=== PATIENT | female | born 1965 | race Caucasian/White ===

== ENCOUNTER → 2016-06-14 | Outpatient (CLI) | payer OTHER ==
[2016-06-14 10:48] LABS: ANION GAP 11 (5-19); BLOOD UREA NITROGEN 20 mg/dL (7-20); CALCIUM 9.8 mg/dL (8.4-10.2); CARBON DIOXIDE 27 mmol/L (22-30); CHLORIDE 104 mmol/L (98-107); CHOLESTEROL 213.26 mg/dL (0-200); CREATININE RESULT 0.93 mg/dL (0.52-1.25); Direct HDL 36 mg/dL (>40); GLUCOSE 99 mg/dL (75-110); POTASSIUM 4.9 mmol/L (3.6-5.0); TRIGLYCERIDES 312 mg/dL (<150)
[2016-06-14 10:59] LABS: DIRECT LDL 136 mg/dL (<100)
[2016-06-14 11:05] LABS: VLDL CHOLESTEROL 62.4 mg/dL (10-31)
== END ==
LOC: CCC 09:54
DX: E78.4 Other hyperlipidemia (principal)
CPT/HCPCS: 36415; 80048; 80061

== ENCOUNTER 2016-07-04 19:19 | Emergency (ER) | payer SELFPAY ==
[2016-07-04 19:39] VITALS: BP 158/80
[2016-07-04] MEDS ORDERED: ASPIRIN 81 MG TABLET, CHEWABLE PO ONE (19:43)
--- NOTE | 2016-07-04 19:43 | ER Document Report ---
ED Medical Screen (RME) - General Stated Complaint: CHEST PAIN Notes: chest pain left of strenum pressure, intermittenly and has become worse that its constant fatigue, increased pain with deep breath on plavix, lipitor HLD, HTN, tobacco user not diabetic Jul 07 2015: [place] to cath to stent x1 and left carotid endarterctomy I have greeted and performed a rapid initial assessment of this patient. A comprehensive ED assessment and evaluation of the patient, analysis of test results and completion of the medical decision making process will be conducted by additional ED providers. TRAVEL OUTSIDE OF THE [place] IN LAST 30 DAYS: No - Related Data Allergies/Adverse Reactions: tetracycline [Tetracycline] Allergy (Verified 10/02/15 02:23) Past Medical History - Past Medical History Cardiac Medical History: Reports: Hx Coronary Artery Disease, Hx Heart Attack, Hx Hypertension Psychiatric Medical History: Denies: Hx Depression Past Surgical History: Reports: Hx Cardiac Catheterization, Hx Section , Hx Coronary Stent - x1; June 2015, Hx Hysterectomy - Immunizations Immunizations up to date: No Hx Diphtheria, Pertussis, Tetanus Vaccination: Yes Physical Exam - Vital signs Vitals: Temp Pulse Resp BP Pulse Ox 98.3 F 105 H 20 158/80 H 97 07/04/16 19:23 07/04/16 19:23 07/04/16 19:23 07/04/16 19:23 07/04/16 19:23 Course - Vital Signs Vital signs: Temp Pulse Resp BP Pulse Ox 98.3 F 105 H 20 158/80 H 97 07/04/16 19:23 07/04/16 19:23 07/04/16 19:23 07/04/16 19:23 07/04/16 19:23
[2016-07-04 20:09] LABS: ABSOLUTE BASOPHILS # (AUTO) 0.1 10^3/uL (0.0-0.2); ABSOLUTE EOSINOPHILS # (AUTO) 0.5 10^3/uL (0.0-0.6); ABSOLUTE LYMPHOCYTES (AUTO) 3.1 10^3/uL (0.5-4.7); ABSOLUTE MONOCYTES (AUTO) 0.8 10^3/uL (0.1-1.4); ABSOLUTE NEUT (AUTO) 6.1 10^3/uL (1.7-8.2); BASOPHILS % (AUTO) 0.5 % (0-2); EOSINOPHILS % (AUTO) 4.6 % (0-6); HEMATOCRIT 39.2 % (36.0-47.0); HEMOGLOBIN 13.1 g/dL (12.0-15.5); HGB HCT DIFFERENCE 0.1; LYMPHOCYTES % (AUTO) 29.4 % (13-45); MEAN CORPUSCULAR HGB CONC 33.3 g/dL (32.0-36.0); MEAN CORPUSCULAR VOLUME 90 fl (80-97); MONOCYTES % (AUTO) 7.9 % (3-13); RED BLOOD COUNT 4.36 10^6/uL (3.72-5.28); RED CELL DISTRIBUTION WIDTH 14.9 % (11.5-14.0); SEGMENTED NEUTROPHILS % (AUTO) 57.6 % (42-78); WHITE BLOOD COUNT 10.5 10^3/uL (4.0-10.5)
[2016-07-04 20:16] LABS: ALANINE AMINOTRANSFERASE 35 U/L (9-52); ALBUMIN 4.2 g/dL (3.5-5.0); ALKALINE PHOSPHATASE 112 U/L (38-126); ANION GAP 10 (5-19); ASPARTATE AMINO TRANSFERASE 19 U/L (14-36); BILIRUBIN,TOTAL 0.4 mg/dL (0.2-1.3); BLOOD UREA NITROGEN 23 mg/dL (7-20); CALCIUM 9.4 mg/dL (8.4-10.2); CARBON DIOXIDE 29 mmol/L (22-30); CHLORIDE 102 mmol/L (98-107); CREATINE KINASE 42 U/L (30-135); CREATININE RESULT 1.12 mg/dL (0.52-1.25); GLUCOSE 99 mg/dL (75-110); POTASSIUM 4.5 mmol/L (3.6-5.0); SODIUM 140.8 mmol/L (137-145); TOTAL PROTEIN 7.6 g/dL (6.3-8.2)
[2016-07-04 20:37] LABS: CREATINE KINASE MB 0.57 ng/mL (<4.55)
[2016-07-04 20:39] LABS: TROPONIN I < 0.012 ng/mL
--- NOTE | 2016-07-05 12:41 | EKG REPORT ---
SEVERITY:- ABNORMAL ECG - SINUS RHYTHM LEFT ATRIAL ABNORMALITY : Confirmed by: Noble Haines 05-Jul-2016 12:40:34
== END 2016-07-04 21:22 | disposition left against medical advice (07) ==
LOC: ER 19:19
DX: R07.89 Other chest pain (principal); R53.83 Other fatigue; I25.10 Atherosclerotic heart disease of native coronary artery without angina pectoris; I25.2 Old myocardial infarction; I10 Essential (primary) hypertension; Z88.1 Allergy status to other antibiotic agents; Z98.61 Coronary angioplasty status; Z53.20 Procedure and treatment not carried out because of patient's decision for unspecified reasons
CPT/HCPCS: 36415; 71010; 80053; 82550; 82553; 84484; 85025; 93010; 99281

== ENCOUNTER → 2016-08-01 | Outpatient (CLI) | payer OTHER ==
[~2016-08-01] MED LIST: AMINOPHYLLINE INJ/PF 250 MG/10 ML SDV IV ONE; HYDROCHLOROTHIAZIDE 12.5 MG CAPSULE PO ONE; LISINOPRIL 10 MG TABLET PO ONE; REGADENOSON INJ 0.4 MG/5 ML DISP.SYRIN IV ONE
--- NOTE | 2016-08-02 09:54 | DRAGON STRESS TEST REPORT ---
INTRAVENOUS LEXISCAN CARDIOLITE STRESS TEST USING SINGLE PHOTON EMMISION COMPUTERIZED TOMOGRAPHIC. DATE OF PROCEDURE: August 01, 2016 INDICATION : Chest pain CARDIAC RISK FACTORS: Hypertension, dyslipidemia, tobacco abuse, family history of cardiac disease RESTING EKG: Sinus rhythm, minor nonspecific ST segment changes STRESS EKG: No significant changes noted with LexiScan bolus REASON FOR TERMINATION: Protocol. PROCEDURE REPORT: Baseline heart rate 82 beats per minute with blood pressure of 173/68. Patient had no significant complaints. Heart rate at 2 minutes post bolus 100 with a blood pressure of 183/60. 3 minutes post bolus heart rate 99 with blood pressure of 174/70. No significant EKG changes were noted. Patient had no significant complaints during the procedure or postprocedure. CONCLUSIONS: Normal EKG and hemodynamic response to IV LexiScan. NUCLEAR DATA: At rest the patient was given 11.68 millicuries of technetium 99 sestamibi injected intravenously. As per protocol rest gated SPECT images were obtained. Subsequently the patient was given intravenous LexiScan at a dose of 0.4 mg in 5 mL intravenously, followed by flush with normal saline. Subsequently the stress dose of 36.5 millicuries of technetium 99 sestamibi was injected intravenously. As per protocol stress gated images were obtained. NUCLEAR INTERPRETATION: Both raw and processed data were used for interpretation. Visual, qualitative, computer-generated quantitative data was used. There was good myocardial uptake of technetium compound. Motion artifact and soft tissue attenuations were noted. Increased visceral uptake was noted. No definitive areas of transient perfusion defect noted. No definitive areas of fixed perfusion defect or scars noted. EKG gated imaging showed LV EF at 60 %, rest and stress gated EF similar visually. T. I D. ratio was 1.19. Lung heart ratio noted to be within normal limits 0.41, seems borderline increased. No significant extracardiac and abnormal radiotracer activities were noted. RV free wall uptake was noted to be WNL. IMPRESSION: Also refer to comments under nuclear interpretation. Also test results needs to be interpreted in the context of pretest probability. 1. There is no definitive scintigraphic evidence of LexiScan induced myocardial ischemia. 2. There is no definitive scintigraphic evidence of myocardial infarction/scar. 3. EKG gated imaging shows left ejection fraction of approximately 60 %. 4. Clinical correlation requested as occasionally single vessel disease or balanced ischemia could be missed. In approximately 10% of the cases Lexiscan may not cause adequate vasodilatory stress. RECOMMENDATIONS: Aggressive risk factor modification, medical therapy. Clinical correlation with echocardiogram derived ejection fraction. Inability to exercise by itself can lead to increased cardiovascular event risks. Consider cardiology consultation and or follow-up if clinically indicated. I AM AVAILABLE FOR CARDIOLOGY CONSULTATION AND FOLLOWUP IF REQUESTED BY PMD Noble Haines M.D., [address] Deputy staging technician, Board certified in cardiovascular diseases, Nuclear cardiology, Echocardiography Cardiac CT and cardiac MRI Ph. [phone] [facility]
== END ==
LOC: RAD 08:16
DX: R07.9 Chest pain, unspecified (principal); I25.10 Atherosclerotic heart disease of native coronary artery without angina pectoris; I25.2 Old myocardial infarction
CPT/HCPCS: 93017; 78452; A9500; J2785; J0280; Q9969

== ENCOUNTER → 2016-08-05 | Outpatient (CLI) | payer OTHER ==
[2016-08-05 10:38] LABS: Direct HDL 36 mg/dL (>40); TRIGLYCERIDES 265 mg/dL (<150)
[2016-08-05 10:49] LABS: DIRECT LDL 116 mg/dL (<100)
== END ==
LOC: CCC 08:53
DX: E78.4 Other hyperlipidemia (principal)
CPT/HCPCS: 36415; 80061

== ENCOUNTER 2016-11-15 01:52 | Observation (INO) | payer OTHER ==
[2016-11-15] MEDS ORDERED: ASPIRIN 81 MG TABLET, CHEWABLE PO ONE (04:41)
--- NOTE | 2016-11-15 04:48 | ER Document Report ---
ED Medical Screen (RME) - General Chief Complaint: Chest Pain Stated Complaint: CHEST DISCOMFORT Time Seen by Provider: 11/15/16 04:46 Notes: 51-year-old female, reports chest pain that started tonight while she was lying down, over the left side of her chest, worse with movement, states she felt like her heart was racing and she also checked her blood pressure and found out that was high. Patient smokes, had an SD last year with stenting in , has hypertension she denies shortness of breath, injury, fever, cough. TRAVEL OUTSIDE OF THE [place] IN LAST 30 DAYS: No - Related Data Allergies/Adverse Reactions: tetracycline [Tetracycline] Allergy (Verified 10/02/15 02:23) Past Medical History - Past Medical History Cardiac Medical History: Reports: Hx Coronary Artery Disease, Hx Heart Attack, Hx Hypertension Renal/ Medical History: Denies: Hx Peritoneal Dialysis Psychiatric Medical History: Denies: Hx Depression Past Surgical History: Reports: Hx Cardiac Catheterization, Hx Section , Hx Coronary Stent - x1; June 2015, Hx Hysterectomy - Immunizations Immunizations up to date: No Hx Diphtheria, Pertussis, Tetanus Vaccination: Yes Physical Exam - Vital signs Vitals: Temp Pulse Resp BP Pulse Ox 98.0 F 102 H 20 205/71 H 98 11/15/16 01:57 11/15/16 01:57 11/15/16 01:57 11/15/16 01:57 11/15/16 01:57 - Respiratory Respiratory status: No respiratory distress Chest status: Tender - tender over general left anterior chest wall extending up pectoralis on the left side Breath sounds: Normal - Cardiovascular Rhythm: Regular. No: Tachycardia Heart sounds: Normal auscultation, S1 appreciated, S2 appreciated Murmur: No Course - Vital Signs Vital signs: Temp Pulse Resp BP Pulse Ox 98.0 F 80 18 160/68 H 97 11/15/16 01:57 11/15/16 04:13 11/15/16 04:13 11/15/16 04:13 11/15/16 04:13
--- NOTE | 2016-11-15 05:30 | RADIOLOGY REPORT (SQ) ---
EXAM DESCRIPTION: CHEST SINGLE VIEW COMPLETED DATE/TIME: 11/15/2016 4:59 am REASON FOR STUDY: chest pain COMPARISON: 07/04/2016 EXAM PARAMETERS: NUMBER OF VIEWS: One view. TECHNIQUE: Single frontal radiographic view of the chest acquired. RADIATION DOSE: NA LIMITATIONS: None. FINDINGS: LUNGS AND PLEURA: No opacities, masses or pneumothorax. No pleural effusion. Prominent in terstitium, chronic. MEDIASTINUM AND HILAR STRUCTURES: No masses. Contour normal. HEART AND VASCULAR STRUCTURES: Heart normal in size. Normal vasculature. BONES: No acute findings. Mild scoliotic curvature. HARDWARE: None in the chest. OTHER: No other significant finding. IMPRESSION: NO ACUTE RADIOGRAPHIC FINDING IN THE CHEST. TECHNICAL DOCUMENTATION: JOB ID: [id number]
[2016-11-15 06:03] LABS: ABSOLUTE BASOPHILS # (AUTO) 0.1 10^3/uL (0.0-0.2); ABSOLUTE EOSINOPHILS # (AUTO) 0.5 10^3/uL (0.0-0.6); ABSOLUTE LYMPHOCYTES (AUTO) 4.2 10^3/uL (0.5-4.7); ABSOLUTE MONOCYTES (AUTO) 1.2 10^3/uL (0.1-1.4); ABSOLUTE NEUT (AUTO) 6.7 10^3/uL (1.7-8.2); BASOPHILS % (AUTO) 0.6 % (0-2); EOSINOPHILS % (AUTO) 3.9 % (0-6); HEMOGLOBIN 12.4 g/dL (12.0-15.5); HGB HCT DIFFERENCE 0.2; LYMPHOCYTES % (AUTO) 32.9 % (13-45); MEAN CORPUSCULAR HGB CONC 33.5 g/dL (32.0-36.0); MEAN CORPUSCULAR VOLUME 93 fl (80-97); MONOCYTES % (AUTO) 9.7 % (3-13); RED BLOOD COUNT 3.99 10^6/uL (3.72-5.28); RED CELL DISTRIBUTION WIDTH 13.2 % (11.5-14.0); SEGMENTED NEUTROPHILS % (AUTO) 52.9 % (42-78); WHITE BLOOD COUNT 12.7 10^3/uL (4.0-10.5)
[2016-11-15 06:23] LABS: ALANINE AMINOTRANSFERASE 44 U/L (9-52); ALBUMIN 4.2 g/dL (3.5-5.0); ALKALINE PHOSPHATASE 138 U/L (38-126); ANION GAP 11 (5-19); ASPARTATE AMINO TRANSFERASE 29 U/L (14-36); BILIRUBIN,DIRECT 0.3 mg/dL (0.0-0.4); BILIRUBIN,TOTAL 0.3 mg/dL (0.2-1.3); BLOOD UREA NITROGEN 19 mg/dL (7-20); CALCIUM 9.1 mg/dL (8.4-10.2); CARBON DIOXIDE 26 mmol/L (22-30); CHLORIDE 103 mmol/L (98-107); CREATINE KINASE 37 U/L (30-135); GLUCOSE 114 mg/dL (75-110); MAGNESIUM 2.1 mg/dL (1.6-2.3); POTASSIUM 4.1 mmol/L (3.6-5.0); SODIUM 140.1 mmol/L (137-145); TOTAL PROTEIN 7.8 g/dL (6.3-8.2)
[2016-11-15 06:35] LABS: CREATINE KINASE MB 0.58 ng/mL (<4.55)
[2016-11-15 06:36] LABS: TROPONIN I < 0.012 ng/mL
--- NOTE | 2016-11-15 07:23 | ER Document Report ---
ED General - General Chief Complaint: Chest Pain > 30 Stated Complaint: CHEST DISCOMFORT Time Seen by Provider: 11/15/16 04:46 Mode of Arrival: Ambulatory Information source: Patient Notes: 51-year-old female presents with history of MT with stents last year with complaints of chest pressure sensation. Patient notes the pain started earlier today was associated with heart racing. Denies a history of palpitations TRAVEL OUTSIDE OF THE [place] IN LAST 30 DAYS: No - HPI Onset: Just prior to arrival Onset/Duration: Sudden Quality of pain: Pressure Severity: Mild Pain Level: 1 Associated symptoms: Chest pain Exacerbated by: Denies Relieved by: Denies Similar symptoms previously: Yes Recently seen / treated by doctor: Yes - Related Data Allergies/Adverse Reactions: tetracycline [Tetracycline] Allergy (Verified 10/02/15 02:23) Past Medical History - Social History Smoking Status: Never Smoker Cigarette use (# per day): No Chew tobacco use (# tins/day): No Smoking Education Provided: No Family History: CAD - both parents Patient has suicidal ideation: No Patient has homicidal ideation: No - Past Medical History Cardiac Medical History: Reports: Hx Coronary Artery Disease, Hx Heart Attack, Hx Hypertension Renal/ Medical History: Denies: Hx Peritoneal Dialysis Psychiatric Medical History: Denies: Hx Depression Past Surgical History: Reports: Hx Cardiac Catheterization, Hx Section , Hx Coronary Stent - x1; June 2015, Hx Hysterectomy - Immunizations Immunizations up to date: No Hx Diphtheria, Pertussis, Tetanus Vaccination: Yes Review of Systems - Review of Systems Notes: REVIEW OF SYSTEMS: CONSTITUTIONAL : Denies fever, chills, or sweats. Denies recent illness. EENT: Denies eye, ear, throat, or mouth pain or symptoms. Denies nasal or sinus congestion or discharge. Denies throat, tongue, or mouth swelling or difficulty swallowing. CARDIOVASCULAR: Admits to chest pain palpitations RESPIRATORY: Denies cough, cold, or chest congestion. Denies shortness of breath, difficulty breathing, or wheezing. GASTROINTESTINAL: Denies abdominal pain or distention. Denies nausea, vomiting , or diarrhea. Denies blood in vomitus, stools, or per rectum. Denies black, tarry stools. Denies constipation. GENITOURINARY: Denies difficulty urinating, painful urination, burning, frequency, blood in urine, or discharge. FEMALE GENITOURINARY: Denies vaginal bleeding, heavy or abnormal periods, irregular periods. Denies vaginal discharge or odor. MUSCULOSKELETAL: Denies back or neck pain or stiffness. Denies joint pain or swelling. SKIN: Denies rash, lesions or sores. HEMATOLOGIC : Denies easy bruising or bleeding. LYMPHATIC: Denies swollen, enlarged glands. NEUROLOGICAL: Denies confusion or altered mental status. Denies passing out or loss of consciousness. Denies dizziness or lightheadedness. Denies headache. Denies weakness or paralysis or loss of use of either side. Denies problems with gait or speech. Denies sensory loss, numbness, or tingling. Denies seizures. PSYCHIATRIC: Denies anxiety or stress. Denies depression, suicidal ideation, or homicidal ideation. ALL OTHER SYSTEMS REVIEWED AND NEGATIVE. PHYSICAL EXAMINATION: GENERAL: Well-appearing, well-nourished and in no acute distress. HEAD: Atraumatic, normocephalic. EYES: Pupils equal round and reactive to light, extraocular movements intact, conjunctiva are normal. ENT: Nares patent, oropharynx clear without exudates. Moist mucous membranes. NECK: Normal range of motion, supple without lymphadenopathy LUNGS: Breath sounds clear to auscultation bilaterally and equal. No wheezes rales or rhonchi. HEART: Regular rate and rhythm without murmurs pain is reproducible on palpation ABDOMEN: Soft, nontender, nondistended abdomen. No guarding, no rebound. No masses appreciated. Female : deferred Musculoskeletal: Normal range of motion, no pitting or edema. No cyanosis. NEUROLOGICAL: Cranial nerves grossly intact. Normal speech, normal gait. Normal sensory, motor exams PSYCH: Normal mood, normal affect. SKIN: Warm, Dry, normal turgor, no rashes or lesions noted. Dictation was performed using Press voice recognition software Physical Exam - Vital signs Vitals: Temp Pulse Resp BP Pulse Ox 98.0 F 102 H 20 205/71 H 98 11/15/16 01:57 11/15/16 01:57 11/15/16 01:57 11/15/16 01:57 11/15/16 01:57 Course - Re-evaluation Re-evalutation: 11/15/16 07:23 Patient does have a history of cardiac events however while in the room she feels her heart is racing he had a heart rate 67, her chest pain is exactly reproducible, second set of cardiac enzymes have been ordered and I have low suspicion for a cardiac event in this patient. 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 Therefore I will obvious the patient for a full cardiac workup - Vital Signs Vital signs: Temp Pulse Resp BP Pulse Ox 98.3 F 90 11 L 168/72 H 98 11/15/16 05:52 11/15/16 07:40 11/15/16 08:31 11/15/16 08:31 11/15/16 08:31 - Laboratory Result Diagrams: 11/15/16 05:48 11/15/16 05:48 Laboratory results interpreted by me: 11/15/16 11/15/16 05:48 05:48 WBC 12.7 H Est GFR (Non-Af Amer) 58 L Glucose 114 H Alkaline Phosphatase 138 H - Diagnostic Test Radiology reviewed: Image reviewed, Reports reviewed - EKG Interpretation by Me EKG shows normal: Sinus rhythm, [place], Intervals, QRS Complexes Discharge - Discharge Clinical Impression: ACS (acute coronary syndrome) Condition: Stable Disposition: HOME, SELF-CARE
--- NOTE | 2016-11-15 08:39 | EKG REPORT ---
SEVERITY:- BORDERLINE ECG - SINUS RHYTHM PROBABLE LEFT ATRIAL ABNORMALITY : Confirmed by: Noble Haines 15-Nov-2016 08:38:27
[2016-11-15] MEDS ORDERED: METOCLOPRAMIDE HCL ORAL SOLN 10 MG/10 ML UDCUP PO ONE (09:43)
[2016-11-15] MEDS ORDERED: LIDOCAINE 2% VISCOUS SOLN 20 ML UDCUP PO ONE (09:43)
[2016-11-15] MEDS ORDERED: MAG HYDROX/AL HYDROX/SIMETH SUSP 30 ML UDCUP PO ONE (09:43)
[2016-11-15] MEDS ORDERED: NITROGLYCERIN 0.4 MG/TAB 25 TAB/BOTTLE SL PRN (09:45)
[2016-11-15] MEDS ORDERED: ACETAMINOPHEN 325 MG TABLET PO PRN (13:44)
[2016-11-15] MEDS: HEPARIN SOD (PORCINE) 5,000 UNIT/ML 1 ML SYRINGE SUBCUT SCH ×2 (14:36→21:57)
--- NOTE | 2016-11-15 14:36 | Progress Note ---
Provider Note Provider Note: NAREN COBURN Search Criteria: Last Name 'Naren' and First Name 'Sravanthi' and = [birth year] ' and Request Period = '05/19/16' to '11/15/16' - 6 out of 6 Recipients Selected. Fill Date Product, Str, Form Qty Days Pt ID Prescriber Written RX# N/R* Pharm MED+ ------ ---- --------- --- ------- ----- --------- ------ 10/24/2016 FENTANYL 75 MCG/HR PATCH 15.00 30 [id number] 10/17/2016 [id number] N [id number] 270.0 10/19/2016 TRAMADOL HCL 50 MG TABLET 150.00 30 [id number] 10/17/2016 [id number] N [id number] 25.0 09/24/2016 FENTANYL 75 MCG/HR PATCH 15.00 30 [id number] 08/20/2016 [id number] N [id number] 270.0 09/19/2016 TRAMADOL HCL 50 MG TABLET 150.00 30 [id number] 08/20/2016 [id number] R [id number] 25.0 08/24/2016 FENTANYL 75 MCG/HR PATCH 15.00 30 [id number] 08/20/2016 [id number] N [id number] 270.0 08/22/2016 TRAMADOL HCL 50 MG TABLET 150.00 30 [id number] 08/20/2016 [id number] N [id number] 25.0 07/26/2016 FENTANYL 75 MCG/HR PATCH 15.00 30 [id number] 06/24/2016 [id number] N [id number] 270.0 07/23/2016 TRAMADOL HCL 50 MG TABLET 150.00 30 [id number] 06/24/2016 [id number] R [id number] 25.0 06/25/2016 FENTANYL 75 MCG/HR PATCH 15.00 30 [id number] 06/24/2016 [id number] N [id number] 270.0 06/25/2016 TRAMADOL HCL 50 MG TABLET 150.00 30 [id number] 06/24/2016 [id number] N [id number] 25.0 05/28/2016 FENTANYL 75 MCG/HR PATCH 15.00 30 [id number] 04/26/2016 [id number] N [id number] 270.0 05/27/2016 TRAMADOL HCL 50 MG TABLET 120.00 30 [id number] 04/26/2016 [id number] R [id number] 20.0 [id number] DARIUS MARTÍNEZ PA-C; [facility], [address] [place] [address] [id number] SNEHA GOINS M, PA; [facility] [address] [place] [address] Pharmacies that dispensed prescriptions listed [id number] [facility]; [address] [place] [phone],
[2016-11-15] MEDS ORDERED: TRAMADOL HCL 50 MG TABLET PO PRN (15:37)
[2016-11-15] MEDS ORDERED: (PENDING PHARMACY ID) (Lisinopril/Hydrochlorothiazide [Lisinopril-Hctz 20-12.5 Mg Tab] 1 E PO SCH (15:45)
[2016-11-15] MEDS ORDERED: CLOPIDOGREL BISULFATE 75 MG TABLET PO ONE (16:00)
--- NOTE | 2016-11-15 16:04 | HISTORY AND PHYSICAL E ---
History and Physical NAME: KATERINE FALL : 1965 AGE: 51Y ADMITTED: 11/15/2016 ROOM: 403 CHIEF COMPLAINT: Chest pain PRIMARY CARE PROVIDER: [facility]. HISTORY OF PRESENT ILLNESS: Patient is a 51-year-old female with a past medical history of tobacco dependence and known coronary artery disease that is well known to the hospitalist service. The patient presented to the emergency department with a chief complaint of chest pain. The patient stated that overnight while lying down she developed a sudden onset of left-sided chest pain which was worse with movement. The patient stated at that time she felt like her heart was racing also, therefore, she checked her blood pressure and found it to be high. The patient is followed by cardiology in [place] and has had a heart catheterization in the past year. The patient denied any other symptoms, including shortness of breath, fever, cough, or sputum production. The patient also noticed severe reflux and was ordered GI cocktail while in the emergency department. Upon presentation to the emergency department, the patient was found to have an unremarkable set of enzymes, as well as an unchanged EKG, and the patient was referred to the hospitalists for observation and management. PAST MEDICAL HISTORY: 1. Coronary artery disease. 2. Hyperlipidemia. 3. Hypertension. 4. Carotid stenosis. 5. Opiate dependency continuous. PAST SURGICAL HISTORY: 1. section x1. 2. Hysterectomy. 3. Left carotid endarterectomy. 4. Cardiac catheterization with subsequent stent. SOCIAL HISTORY: The patient is positive for approximately 40 pack year history of tobacco. The patient still actively smokes one-half pack of cigarettes a day. Alcohol use is occasional. Denies any illicit drug use. The patient is unemployed. She is . Her is her surrogate decision-maker, Antony, who may be reached at [phone]. FAMILY MEDICAL HISTORY: Positive for coronary artery disease in both parents. The patient states that her mother had lung cancer as well. The patient's father is at age 64 from a CVA. The patient has children who are healthy. No coronary artery disease in siblings. ALLERGIES: TETRACYCLINE. HOME MEDICATIONS: 1. Aspirin 81 mg p.o. daily. 2. Lipitor 40 mg p.o. q hour of sleep. 3. Catapres 0.2 mg p.o. q.12 h. 4. Nexium 20 mg p.o. daily. 5. Labetalol 100 mg p.o. b.i.d. 6. Lisinopril/hydrochlorothiazide 20/12.5 one tablet p.o. daily. 7. Fentanyl patch 75 mcg q.72 h. 8. Tramadol 50 mg p.o. 5 times a day p.r.n. REVIEW OF SYSTEMS: CONSTITUTIONAL: Patient denies any fevers, chills. No dizziness, weakness, or loss of appetite. SKIN: The patient denies any diaphoresis, rashes, bruising, itching. HEENT: Denies any vision changes, hearing loss, nasal drainage, sore throat, headache. CARDIOVASCULAR: Denies any edema or heart palpitations. Positive for symptoms of chest pain. RESPIRATORY: Denies any cough, sputum production, or hemoptysis. GASTROINTESTINAL: Denies any nausea, vomiting, abdominal pain, diarrhea, bloating, hematemesis, constipation, melena, hematochezia. Positive for intermittent heartburn, reflux. GENITOURINARY: Denies any hematuria, pyuria, or dysuria. MUSCULOSKELETAL: The patient does have chronic pains, but no new acute pains. NEUROLOGICAL: Denies any seizures, tremors, loss of consciousness. HEMATOLOGICAL: Denies any angela bleeding or easy bruising. ENDOCRINE: Denies any recent weight changes. PSYCHIATRIC: Denies suicidal or homicidal ideation. The rest of the review of the other organ systems is negative. PHYSICAL EXAMINATION: GENERAL: On examination the patient is a well-developed, well-nourished, 51-year-old female who is awake, alert, and oriented to person, place, time, and situation. She is verbal, conversational, ambulatory, does not appear to be in any acute distress. VITAL SIGNS: As follows: Temperature is 98.5, pulse 80, respirations 18, blood pressure 164/87, oxygen saturation 98% on room air. SKIN: Warm and dry. No rash. Not diaphoretic. HEENT: Pupils equal, round, reactive to light and accommodation. Conjunctivae are pink. Sclerae are nonicteric. There are no masses or lesions. Tongue is midline. NECK: Supple. No JVD. No palpable lymphadenopathy or thyromegaly. HEART: Regular rhythm, no murmur or rub. CHEST: Clear, symmetrical, unlabored. ABDOMEN: Soft, nontender, nondistended. Bowel sounds are present. No palpable organomegaly. BACK: No CVA tenderness or sacral edema. EXTREMITIES: No clubbing, cyanosis, edema, or peripheral signs of embolization. Plus 2 pedal pulses noted bilaterally. PSYCHIATRIC: Appropriate affect. Pleasant mood. DIAGNOSTICS: Lab values are as follows: Hematology obtained on 11/15/2016: WBCs are 12.7, hemoglobin is 12.4, hematocrit is 37.0, platelet count is 283,000. Chemistry obtained on 11/15/2016: Sodium is 140, potassium 4.1, chloride is 103, carbon dioxide 26, BUN 19, creatinine is 1, glucose 114, calcium 9.1, magnesium is 2.1. Bilirubin is 0.3, AST 29, ALT is 44, alkaline phosphatase 138, CK 37, troponin 0.012, total protein 7.8, albumin 4.2. TSH is 0.67. IMPRESSION AND PLAN: 1. Chest pain. Will observe the patient in continuous telemetry unit. Serial cardiac enzymes will be obtained. The patient will be watched on the continuity director and will repeat EKG. Will obtain lipid panel in the a.m. and follow. 2. Coronary artery disease. Will continue the patient's home medications once reconcilable. The patient was last cathed a year ago. 3. Gastroesophageal reflux disease. Most likely this is the source of number 1, as the patient is having active symptoms. Will start the patient on b.i.d. proton pump inhibitor therapy and give a GI cocktail for quick relief. 4. Opiate dependency continuous. Will continue the patient's home prescribed medications. 5. Dyslipidemia. Will continue the patient's statin. 6. Hypertension. Blood pressures are significantly elevated. Will resume the patient's home medications. 7. Deep venous thrombosis prophylaxis. Will start the patient on subcutaneous Lovenox. DISPOSITION: The patient is a FULL CODE. Pending patient's symptomatology and diagnostic findings, will reevaluate in the a.m. Will observe the patient in continuous telemetry as the patient's expected length of stay will not surpass 2 midnights. TIME SPENT: Time spent on this followup including assessment, plan, physical examination, and patient education is 35 minutes. DICTATING PHYSICIAN: SANDRA QUIROZ NP [id number] [facility]#: [id number] ID: [id number] JOB#: [id number] ACCT: [id number] cc:HILARIO MEDINA > VINNIE
[2016-11-15] MEDS ORDERED: HYDROCHLOROTHIAZIDE 12.5 MG CAPSULE PO ONE (16:30)
[2016-11-15] MEDS ORDERED: LISINOPRIL 10 MG TABLET PO ONE (16:30)
[2016-11-15] MEDS: LANSOPRAZOLE 30 MG TAB.RAP.DR PO SCH (16:34)
[2016-11-15] MEDS ORDERED: ATORVASTATIN CALCIUM 80 MG TABLET PO SCH (22:00)
[2016-11-16] MEDS: LANSOPRAZOLE 30 MG TAB.RAP.DR PO SCH (06:01)
[2016-11-16] MEDS: HEPARIN SOD (PORCINE) 5,000 UNIT/ML 1 ML SYRINGE SUBCUT SCH (06:01)
[2016-11-16 09:32] VITALS: BP 114/48
[2016-11-16] MEDS ORDERED: CLOPIDOGREL BISULFATE 75 MG TABLET PO SCH (10:00)
[2016-11-16] MEDS ORDERED: ASPIRIN 81 MG TABLET, CHEWABLE PO SCH (10:00)
[2016-11-16] MEDS ORDERED: HYDROCHLOROTHIAZIDE 12.5 MG CAPSULE PO SCH (10:00)
[2016-11-16] MEDS ORDERED: LISINOPRIL 10 MG TABLET PO SCH (10:00)
--- NOTE | 2016-11-16 10:23 | DISCHARGE SUMMARY E ---
Discharge Summary NAME: KATERINE FALL : 1965 AGE: 51Y ADMITTED: 11/15/2016 DISCHARGED: 11/16/2016 CODE STATUS: FULL CODE. PRIMARY CARE PROVIDER: [facility] CARDIOLOGY: [facility] DISCHARGE DIAGNOSES: 1. Gastroesophageal reflux disease. 2. Chest pain secondary to #1. 3. Coronary artery disease. 4. Tobacco dependency. 5. Hyperlipidemia. 6. Labile hypertension. 7. Carotid stenosis. 8. Opiate dependency continuous. DISCHARGE MEDICATIONS: 1. Aspirin 81 mg p.o. daily, 30 tablets, 0 refills. 2. Lipitor 80 mg p.o. daily. 3. Nexium 40 mg p.o. daily. 4. Lisinopril/hydrochlorothiazide 20/12.5 one tablet p.o. daily. 5. Zantac 150 mg p.o. at hour of sleep, 14 tablets, 0 refills. 6. Tramadol 50 mg p.o. q.6 hours p.r.n. DIET: Heart healthy. ACTIVITY: As tolerated. HISTORY OF PRESENT ILLNESS: The patient is a 51-year-old female with a past medical history of known coronary artery disease and status post stent placement a little over a year ago. The patient presented to the emergency department with a chief complaint of chest pain. The patient is well known to the hospitalist service. The patient stated prior to admission while lying down overnight, she developed a sudden onset of left-sided chest pain which was worse with movement. The patient stated that she felt like her heart was racing although her pulse was normal. The patient checked her blood pressure and found it to be high. The patient is followed by Cardiology in [place] and had a heart catheterization in the past year as well. The patient denied any other symptoms including shortness of breath, fever, cough, or sputum production. The patient has noticed severe reflux and was actually given a GI cocktail in the emergency department due to the severity of her symptoms. The patient states that she takes Nexium almost daily but still has breakthrough symptoms. According to the patient, she had taken Nexium regularly, however, she read "how bad it is for you" and abruptly stopped taking the medication and subsequently experienced rebound refluxing and Nexium is just not enough at this time. Upon presentation to the emergency department, the patient was found to have unremarkable set of enzymes as well as an unchanged EKG. The patient was referred to the hospitalist for observation and management. HOSPITAL COURSE: The patient was observed in continuous telemetry unit. Serial cardiac enzymes were obtained, all of which were non-suggestive. The patient had no EKG changes and no events on the homogenizer operator and no replication of symptoms. The patient's symptoms almost completely resolved with GI cocktail. The patient was resumed on her home medications and her blood pressures immediately improved and are back to baseline. The patient has had some labile blood pressures in the past given her element of stenosis, however, she has responded nicely to resuming her current home medication dosage. The patient was started on PPI therapy and was supplemented H2 receptor paul at bedtime given that this appears to be when she has the most symptoms. The patient does have a scheduled followup appointment on the with Cardiology and the patient is ready for discharge. DIAGNOSTICS: Lab values are as follows: Hematology obtained on 11/15/2016: WBCs are 12.0, hemoglobin is 12.4, hematocrit is 37.0, platelet count is 283,000. Chemistry obtained on 11/15/2016: Sodium is 140, potassium 4.1, chloride is 103, carbon dioxide 26, BUN 19, creatinine is 1, glucose 114, calcium 9.1, magnesium is 2.1. Bilirubin is 0.3, AST 29, ALT is 44, alkaline phosphatase 138, CK 37, CK-MB is 0.58, troponin is 0.012, total protein 7.8, albumin 4.2. TSH is 0.67. Chest x-ray obtained on 11/15/2016 reveals no acute radiographic finding of the chest. EKG obtained on 11/15/2016 reveals sinus rhythm. EKG obtained on 11/16/2016 reveals sinus rhythm. PHYSICAL EXAMINATION: GENERAL: On examination, the patient is a well-developed, well-nourished, 51-year-old female who is awake, alert, and oriented to person, place, and situation. She is verbal, conversational, ambulatory, and does not appear to be in acute distress. VITAL SIGNS: Temperature 97.5, pulse 71, respirations 18, blood pressure 114/48, oxygen saturation is 100% on room air. SKIN: Warm and dry. No rash. Not diaphoretic. HEENT: Pupils equal, round, reactive to light and accommodation. Conjunctivae are pink. No JVP. CARDIOVASCULAR: Heart is regular with no murmur or rub. CHEST: Clear, symmetrical, unlabored. ABDOMEN: Soft, nontender, nondistended. BACK: No CVA tenderness or sacral edema. EXTREMITIES: No clubbing, cyanosis, edema. PSYCHIATRIC: Appropriate affect. Pleasant mood. DISCHARGE PLAN: 1. The patient is to followup with her pathology laboratory technologist on the thirty-first as already scheduled for hospital followup. 2. The patient is advised to followup with a primary care provider within 1 week for hospital followup. Time spent on this discharge including assessment, plan, physical examination, and patient education is 25 minutes. DICTATING PHYSICIAN: SANDRA QUIROZ NP [id number] PHY#: [id number] ID: [id number] JOB#: [id number] ACCT: [id number] cc:HILARIO MEDINA MICHAEL NP >
--- NOTE | 2016-11-16 13:47 | EKG REPORT ---
SEVERITY:- NORMAL ECG - SINUS RHYTHM : Confirmed by: Noble Haines 16-Nov-2016 13:46:58
== END 2016-11-16 10:35 | disposition home or self-care (01) ==
LOC: ER 01:52 → EH 09:46 → UNDOADMOB 10:14 → EH 10:14 → 4N 11:22
PROVIDERS: ADMIT Family Medicine; ATTEND Family Medicine
DX: K21.9 Gastro-esophageal reflux disease without esophagitis (principal); R07.89 Other chest pain; I25.10 Atherosclerotic heart disease of native coronary artery without angina pectoris; F17.200 Nicotine dependence, unspecified, uncomplicated; E78.5 Hyperlipidemia, unspecified; R09.89 Other specified symptoms and signs involving the circulatory and respiratory systems; I10 Essential (primary) hypertension; I65.29 Occlusion and stenosis of unspecified carotid artery; F11.20 Opioid dependence, uncomplicated; F17.210 Nicotine dependence, cigarettes, uncomplicated; G89.29 Other chronic pain; I25.2 Old myocardial infarction; Z95.5 Presence of coronary angioplasty implant and graft; Z79.899 Other long term (current) drug therapy; Z90.710 Acquired absence of both cervix and uterus; Z80.1 Family history of malignant neoplasm of trachea, bronchus and lung; Z82.3 Family history of stroke; Z79.82 Long term (current) use of aspirin; Z82.49 Family history of ischemic heart disease and other diseases of the circulatory system
CPT/HCPCS: 93005 ×2; 99285; 36415; 82553; 82550; 83735; 84443; 85025; 80053; 84484; 71010; 93010 ×2; G0378 ×3; J1644 ×2; J3490 ×3

== ENCOUNTER 2017-02-15 02:59 | Emergency (ER) | payer OTHER ==
[2017-02-15] MEDS ORDERED: ASPIRIN 81 MG TABLET, CHEWABLE PO ONE (03:10)
[2017-02-15 03:48] LABS: ABSOLUTE EOSINOPHILS # (AUTO) 0.4 10^3/uL (0.0-0.6); ABSOLUTE LYMPHOCYTES (AUTO) 3.6 10^3/uL (0.5-4.7); ABSOLUTE MONOCYTES (AUTO) 1.4 10^3/uL (0.1-1.4); ABSOLUTE NEUT (AUTO) 5.1 10^3/uL (1.7-8.2); BASOPHILS % (AUTO) 0.4 % (0-2); EOSINOPHILS % (AUTO) 4.2 % (0-6); HEMATOCRIT 37.3 % (36.0-47.0); HEMOGLOBIN 12.9 g/dL (12.0-15.5); HGB HCT DIFFERENCE 1.4; MEAN CORPUSCULAR HEMOGLOBIN 31.5 pg (27.0-33.4); MEAN CORPUSCULAR HGB CONC 34.7 g/dL (32.0-36.0); MEAN CORPUSCULAR VOLUME 91 fl (80-97); RED BLOOD COUNT 4.11 10^6/uL (3.72-5.28); RED CELL DISTRIBUTION WIDTH 13.1 % (11.5-14.0); SEGMENTED NEUTROPHILS % (AUTO) 48.4 % (42-78); WHITE BLOOD COUNT 10.5 10^3/uL (4.0-10.5)
[2017-02-15 03:50] LABS: PROTHROMBIN TIME 11.6 SEC (11.4-15.4)
[2017-02-15 04:02] LABS: ALANINE AMINOTRANSFERASE 44 U/L (9-52); ALBUMIN 4.6 g/dL (3.5-5.0); ALKALINE PHOSPHATASE 121 U/L (38-126); ANION GAP 10 (5-19); ASPARTATE AMINO TRANSFERASE 27 U/L (14-36); BILIRUBIN,DIRECT 0.3 mg/dL (0.0-0.4); BILIRUBIN,TOTAL 0.3 mg/dL (0.2-1.3); BLOOD UREA NITROGEN 14 mg/dL (7-20); CALCIUM 9.6 mg/dL (8.4-10.2); CARBON DIOXIDE 29 mmol/L (22-30); CHLORIDE 106 mmol/L (98-107); CREATINE KINASE 65 U/L (30-135); CREATININE RESULT 0.99 mg/dL (0.52-1.25); GLUCOSE 98 mg/dL (75-110); POTASSIUM 4.2 mmol/L (3.6-5.0); SODIUM 145.1 mmol/L (137-145); TOTAL PROTEIN 7.6 g/dL (6.3-8.2)
[2017-02-15] MEDS ORDERED: LISINOPRIL 10 MG TABLET PO ONE (04:06)
[2017-02-15 04:13] LABS: CREATINE KINASE MB 1.04 ng/mL (<4.55)
--- NOTE | 2017-02-15 04:13 | ER Document Report ---
ED Blood Pressure Problem - General Chief Complaint: Chest Pain > 30 Stated Complaint: POSSIBLE HIGH BLOOD PRESSURE Time Seen by Provider: 02/15/17 03:59 Notes: The patient is a 51-year-old female, past medical history hypertension, ulcers in her esophagus, presents after she noticed a dull frontal headache, took her blood pressure at home and it was 248/110. She has not taken her 20 mg of lisinopril for the past 3 days, but it is waiting for her at the pharmacy today. She took a 0.1 mg clonidine and Tylenol 650 mg prior to arrival. She is having mild epigastric pain and thinks it's her ulcers. She denies SOB, back pain, blurry vision, nausea, vomiting, neck pain, neck stiffness, fevers, focal weakness, numbness or tingling. TRAVEL OUTSIDE OF THE [place] IN LAST 30 DAYS: No - Related Data Allergies/Adverse Reactions: tetracycline [Tetracycline] Allergy (Verified 10/02/15 02:23) Past Medical History - General Information source: Patient - Social History Smoking Status: Unknown if Ever Smoked Family History: CAD - both parents Patient has suicidal ideation: No Patient has homicidal ideation: No - Past Medical History Cardiac Medical History: Reports: Hx Coronary Artery Disease, Hx Heart Attack, Hx Hypertension Denies: Hx Congestive Heart Failure Pulmonary Medical History: Denies: Hx Asthma, Hx Bronchitis, Hx COPD, Hx Pneumonia, Hx Tuberculosis Neurological Medical History: Reports: Hx Seizures - 09/2015 seizure one time while here at the hospital Renal/ Medical History: Denies: Hx End Stage Renal Disease, Hx Kidney Stones, Hx Peritoneal Dialysis GI Medical History: Reports: Hx Gastroesophageal Reflux Disease, Hx Ulcer. Denies: Hx Cirrhosis Musculoskeltal Medical History: Reports Hx Arthritis, Denies Hx Multiple Sclerosis Psychiatric Medical History: Denies: Hx Bipolar Disorder, Hx Depression, Hx Schizophrenia Past Surgical History: Reports: Hx Cardiac Catheterization, Hx Section , Hx Coronary Stent - x1; June 2015, Hx Hysterectomy - Immunizations Immunizations up to date: No Hx Diphtheria, Pertussis, Tetanus Vaccination: Yes Review of Systems - Review of Systems Notes: REVIEW OF SYSTEMS: CONSTITUTIONAL: -fevers, -chills EENT: -eye pain, -difficulty swallowing, -nasal congestion CARDIOVASCULAR: -chest pain, -syncope. RESPIRATORY: -cough, -SOB GASTROINTESTINAL: +epigastric abdominal pain, -nausea, -vomiting, -diarrhea GENITOURINARY: -dysuria, -hematuria MUSCULOSKELETAL: -back pain, -neck pain SKIN: -rash or skin lesions. HEMATOLOGIC: -easy bruising or bleeding. LYMPHATIC: -swollen, enlarged glands. NEUROLOGICAL: -altered mental status or loss of consciousness, +headache, - neurologic symptoms PSYCHIATRIC: -anxiety, -depression. ALL OTHER SYSTEMS REVIEWED AND NEGATIVE. Physical Exam - Vital signs Vitals: Temp Pulse Resp BP Pulse Ox 97.6 F 89 22 H 158/110 H 98 02/15/17 03:04 02/15/17 03:04 02/15/17 03:04 02/15/17 03:04 02/15/17 03:04 - Notes Notes: PHYSICAL EXAMINATION: GENERAL: Well-appearing, well-nourished and in no acute distress. HEAD: Atraumatic, normocephalic. EYES: Pupils equal round and reactive to light, extraocular movements intact, sclera anicteric, conjunctiva are normal. ENT: nares patent, oropharynx clear without exudates. Moist mucous membranes. NECK: Normal range of motion, supple without lymphadenopathy LUNGS: Breath sounds clear to auscultation bilaterally and equal. No wheezes rales or rhonchi. HEART: Regular rate and rhythm without murmurs ABDOMEN: Soft, nontender, normoactive bowel sounds. No guarding, no rebound. No masses appreciated. EXTREMITIES: Normal range of motion, no pitting or edema. No cyanosis. NEUROLOGICAL: Cranial nerves grossly intact. Normal speech, normal gait. Normal sensory and motor exams. PSYCH: Normal mood, normal affect. SKIN: Warm, Dry, normal turgor, no rashes or lesions noted. Course - Re-evaluation Re-evalutation: Patient appears very well. Her blood pressure was elevated most likely because she missed her 3 days of lisinopril. In the ER, her blood pressure is 158/110 and her headache is resolving after the Tylenol and blood pressure control. After Lisinopril, her BP improved to 133/78. Suspect that her epigastric/lower chest pain is related to her esophageal ulcers. First troponin negative, 2nd troponin slightly bumped, which may be from the hypertension, and EKG does not show any ischemic changes. Symptoms are atypical for aortic dissection or PE at this time. Her HEART score is 3. Last stress test was 2 months ago and she said was negative. 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 She has an appointment with her doctor in 2 days. Patient given very strict return precautions and she understands. - Vital Signs Vital signs: Temp Pulse Resp BP Pulse Ox 97.6 F 89 22 H 158/110 H 98 02/15/17 03:04 02/15/17 03:04 02/15/17 03:04 02/15/17 03:04 02/15/17 03:04 - Laboratory Result Diagrams: 02/15/17 03:30 02/15/17 03:30 Laboratory results interpreted by me: 02/15/17 03:30 Sodium 145.1 H Est GFR (Non-Af Amer) 59 L - Diagnostic Test Radiology reviewed: Image reviewed, Reports reviewed Radiology results interpreted by me: CXR: NAD - EKG Interpretation by Me EKG shows normal: Sinus rhythm, [place], Intervals, QRS Complexes, ST-T Waves Rate: Normal When compared to previous EKG there are: No significant change Discharge - Discharge Clinical Impression: Chest pain Qualifiers: Chest pain type: unspecified Qualified Code(s): R07.9 - Chest pain, unspecified Headache Qualifiers: Headache type: unspecified Headache chronicity pattern: unspecified pattern Intractability: not intractable Qualified Code(s): R51 - Headache Condition: Stable Disposition: HOME, SELF-CARE Additional Instructions: 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 Follow-up with your primary care physician in 1-2 days to have your symptoms rechecked. Return immediately to the emergency room if you notice any worsening symptoms or any other concerns. CHEST PAIN OF UNCLEAR CAUSE: The exact cause of your chest pain isn't clear. Fortunately, there is no evidence of a dangerous medical condition. Further testing may be required to find the source of the pain. Most often, we find that this pain is coming from the chest wall -- the muscles or rib joints in the chest. But chest pain can come from the lung and lung lining, the esophagus, the heart valves or heart lining, and even the stomach or gallbladder. Rest. Eat lightly until the pain is gone. We may prescribe medicine for pain and inflammation. You should call the physician immediately if the pain radiates to the shoulder, jaw or arms; if you start to run a fever or develop a cough; or if you develop shortness of breath, or other new or alarming symptoms. NORMAL EXAM AND WORKUP: At this time, your examination and workup show no significant abnormality. No significant abnormal physical findings were noted. All laboratory, EKG, and imaging (x-ray, CT scans, ultrasound) studies that were ordered show no significant abnormality. Although your examination and all studies that were ordered showed no significant abnormal finding, there are no examinations and no studies that are 100% accurate. There is always the possibility that some abnormality could exist and not be detected with physical examination or within the limits and capabilities of laboratory and other studies. You should return or follow up as you were instructed on your visit today for further evaluation if your symptoms do not resolve. CHEST WALL PAIN: Your chest pain may be coming from the chest wall. This is often caused by straining the muscles or joints in the chest during physical activity, direct trauma, coughing, or vigorous vomiting. Persons with arthritis are especially prone to this type of pain, due to inflammation of the cartilage joints near the breast bone. Occasionally, no cause can be found. Rest from strenuous physical activity. This kind of chest pain is usually made worse by movement of the chest. Depending on the symptoms, we may prescribe medicine for pain, muscle relaxation, and antiinflammatory effects. If the pain is new, and seems to be due to muscle strain, cold packs can help. Otherwise, apply gentle warmth to the painful area for 15 minutes every hour or two. You should call contact the doctor immediately if things change. Further evaluation is needed if you develop a fever or cough, if the nature of the pain changes, or if you become short of breath. ANGINA EPISODE: Your physician has diagnosed the pain you experienced as an episode of angina. Angina occurs when a portion of the heart muscle temporarily lacks oxygen. It does not cause any permanent heart damage, but serves as a warning. Hospitalization is not necessary now. Evaluation of your cardiac condition , and medical therapy for angina will be necessary. It's important you be sure to keep all appointments and take medication exactly as prescribed. Angina is usually treated with a type of "nitrate" medication. This is available as ointment, pills, or sublingual (under the tongue) tablets. Depending on your clinical situation, other medications may be added to help control angina. These may include beta blockers or calcium blockers. If episodes of angina are occurring with increased frequency, or if chest pain lasts longer than 15 minutes or does not respond to nitroglycerin, you must seek emergency medical care immediately. ANTACID THERAPY: You have been instructed to start antacid therapy. Antacids directly neutralize stomach acid. This is useful for acid irritation of the esophagus, gastritis, and ulcers. You should take two tablespoons of antacid one hour after each meal and three hours after each meal. If you are not eating, take the antacid every two hours. If you are using a concentrate (such as Maalox TC), use only one tablespoon. Many antacids affect the bowels. The most common problem is diarrhea. In this case, a pure aluminum hydroxide antacid (such as AlternaGel) can be substituted for some or all doses. If the problem is constipation, add a teaspoon of Milk of Magnesia to each dose. Call the doctor if you experience continued diarrhea or constipation, or if you develop lightheadedness, bloody stool or vomitus, severe abdominal pain, or black stool. PRILOSEC (ACID PUMP INHIBITOR): Prilosec (omeprazole) is an acid-pump inhibitor. It blocks the secretion of hydrogen ions in the acid-producing cells of the stomach. Prilosec keeps your stomach from making acid. Take all medication as prescribed, even after the pain is gone. Regular antacids may be added as needed if you have symptoms while taking this medicine. There are usually no side effects from this medication. Contact your doctor if there is fever, rash, yellow skin color, increasing abdominal pain, weakness, or unusual bruising. Return at once if you develop lightheadedness, black or bloody stool, or bloody vomitus. FOLLOW-UP CARE: If you have been referred to a physician for follow-up care, call the physician s office for an appointment as you were instructed or within the next two days. If you experience worsening or a significant change in your symptoms, notify the physician immediately or return to the Emergency Department at any time for re-evaluation. Forms: Elevated Blood Pressure
[2017-02-15 04:14] LABS: TROPONIN I < 0.012 ng/mL
--- NOTE | 2017-02-15 04:54 | RADIOLOGY REPORT (SQ) ---
EXAM DESCRIPTION: CHEST SINGLE VIEW COMPLETED DATE/TIME: 02/15/2017 4:18 am REASON FOR STUDY: CP COMPARISON: 11/15/2016. EXAM PARAMETERS: NUMBER OF VIEWS: One view. TECHNIQUE: Single frontal radiographic view of the chest acquired. RADIATION DOSE: NA LIMITATIONS: None. FINDINGS: LUNGS AND PLEURA: No opacities, masses or pneumothorax. No pleural effusion. MEDIASTINUM AND HILAR STRUCTURES: No masses. Contour normal. HEART AND VASCULAR STRUCTURES: Heart normal in size. Normal vasculature. BONES: No acute findings. HARDWARE: None in the chest. OTHER: No other significant finding. IMPRESSION: NO ACUTE RADIOGRAPHIC FINDING IN THE CHEST. TECHNICAL DOCUMENTATION: JOB ID: [id number]
[2017-02-15 05:52] VITALS: BP 133/69
--- NOTE | 2017-02-15 09:50 | EKG REPORT ---
SEVERITY:- NORMAL ECG - SINUS RHYTHM : Confirmed by: Noble Haines 15-Feb-2017 09:49:49
== END 2017-02-15 05:52 | disposition home or self-care (01) ==
LOC: ER 02:59
DX: R07.9 Chest pain, unspecified (principal); R51 Headache; I10 Essential (primary) hypertension; Z79.899 Other long term (current) drug therapy
CPT/HCPCS: 36415; 71010; 80053; 82550; 82553; 84484; 85025; 85610; 93005; 93010; 99285

== ENCOUNTER → 2017-02-26 | Outpatient (CLI) | payer OTHER ==
[2017-02-26 10:41] LABS: ABSOLUTE BASOPHILS # (AUTO) 0.1 10^3/uL (0.0-0.2); ABSOLUTE EOSINOPHILS # (AUTO) 0.4 10^3/uL (0.0-0.6); ABSOLUTE LYMPHOCYTES (AUTO) 2.2 10^3/uL (0.5-4.7); ABSOLUTE MONOCYTES (AUTO) 0.6 10^3/uL (0.1-1.4); ABSOLUTE NEUT (AUTO) 2.6 10^3/uL (1.7-8.2); BASOPHILS % (AUTO) 0.9 % (0-2); EOSINOPHILS % (AUTO) 6.5 % (0-6); HEMATOCRIT 38.3 % (36.0-47.0); HEMOGLOBIN 12.9 g/dL (12.0-15.5); HGB HCT DIFFERENCE 0.4; LYMPHOCYTES % (AUTO) 38.1 % (13-45); MEAN CORPUSCULAR HEMOGLOBIN 30.7 pg (27.0-33.4); MEAN CORPUSCULAR HGB CONC 33.6 g/dL (32.0-36.0); MEAN CORPUSCULAR VOLUME 91 fl (80-97); MONOCYTES % (AUTO) 10.6 % (3-13); RED BLOOD COUNT 4.18 10^6/uL (3.72-5.28); RED CELL DISTRIBUTION WIDTH 13.6 % (11.5-14.0); SEGMENTED NEUTROPHILS % (AUTO) 43.9 % (42-78); WHITE BLOOD COUNT 5.9 10^3/uL (4.0-10.5)
[2017-02-26 10:55] LABS: ALANINE AMINOTRANSFERASE 37 U/L (9-52); ALBUMIN 4.2 g/dL (3.5-5.0); ALKALINE PHOSPHATASE 122 U/L (38-126); ANION GAP 13 (5-19); ASPARTATE AMINO TRANSFERASE 18 U/L (14-36); BILIRUBIN,DIRECT 0.4 mg/dL (0.0-0.4); BILIRUBIN,TOTAL 0.4 mg/dL (0.2-1.3); BLOOD UREA NITROGEN 27 mg/dL (7-20); CALCIUM 9.4 mg/dL (8.4-10.2); CARBON DIOXIDE 23 mmol/L (22-30); CHLORIDE 106 mmol/L (98-107); CREATININE RESULT 1.07 mg/dL (0.52-1.25); GLUCOSE 101 mg/dL (75-110); POTASSIUM 4.5 mmol/L (3.6-5.0); SODIUM 142.2 mmol/L (137-145); TOTAL PROTEIN 7.2 g/dL (6.3-8.2)
== END ==
LOC: OD 09:43
PROVIDERS: ATTEND Internal Medicine Cardiovascular Disease
DX: R53.82 Chronic fatigue, unspecified (principal)
CPT/HCPCS: 36415; 80053; 85025

== ENCOUNTER 2017-06-02 05:55 | Emergency (ER) | payer SELFPAY ==
--- NOTE | 2017-06-02 07:32 | ER Document Report ---
ED Cardiac - General Chief Complaint: Chest Pain Stated Complaint: CHEST PAIN Time Seen by Provider: 06/02/17 06:40 Notes: The patient is a 52-year-old female, past medical history CAD with stent, hypertension, presents with 2 episodes of a sharp sensation in the left side of her chest and shoulder. She has a history of frozen left shoulder and is unsure whether her symptoms are related to her heart or shoulder. On arrival to the ER, she is completely asymptomatic and is not having any chest pain or shoulder pain. She tok 324 mg ASA this morning at home. She denies shortness of breath, leg swelling, hemoptysis, nausea, vomiting, rash, headache, focal weakness, numbness, tingling or fevers. TRAVEL OUTSIDE OF THE [place] IN LAST 30 DAYS: No - Related Data Allergies/Adverse Reactions: tetracycline [Tetracycline] Allergy (Verified 10/02/15 02:23) Past Medical History - General Information source: Patient - Social History Smoking Status: Unknown if Ever Smoked Family History: CAD - both parents - Past Medical History Cardiac Medical History: Reports: Hx Coronary Artery Disease, Hx Heart Attack, Hx Hypertension Denies: Hx Congestive Heart Failure Pulmonary Medical History: Denies: Hx Asthma, Hx Bronchitis, Hx COPD, Hx Pneumonia, Hx Tuberculosis Neurological Medical History: Reports: Hx Seizures - 09/2015 seizure one time while here at the hospital Renal/ Medical History: Denies: Hx End Stage Renal Disease, Hx Kidney Stones, Hx Peritoneal Dialysis GI Medical History: Reports: Hx Gastroesophageal Reflux Disease, Hx Ulcer. Denies: Hx Cirrhosis Musculoskeltal Medical History: Reports Hx Arthritis, Denies Hx Multiple Sclerosis Psychiatric Medical History: Denies: Hx Bipolar Disorder, Hx Depression, Hx Schizophrenia Past Surgical History: Reports: Hx Cardiac Catheterization, Hx Section , Hx Coronary Stent - x1; June 2015, Hx Hysterectomy - Immunizations Immunizations up to date: No Hx Diphtheria, Pertussis, Tetanus Vaccination: Yes Review of Systems - Review of Systems Notes: REVIEW OF SYSTEMS: CONSTITUTIONAL: -fevers, -chills EENT: -eye pain, -difficulty swallowing, -nasal congestion CARDIOVASCULAR: +chest pain, -syncope. RESPIRATORY: -cough, -SOB GASTROINTESTINAL: -abdominal pain, -nausea, -vomiting, -diarrhea GENITOURINARY: -dysuria, -hematuria MUSCULOSKELETAL: +left shoulder pain, -back pain, -neck pain SKIN: -rash or skin lesions. HEMATOLOGIC: -easy bruising or bleeding. LYMPHATIC: -swollen, enlarged glands. NEUROLOGICAL: -altered mental status or loss of consciousness, -headache, - neurologic symptoms PSYCHIATRIC: -anxiety, -depression. ALL OTHER SYSTEMS REVIEWED AND NEGATIVE. Physical Exam - Vital signs Vitals: Temp Pulse Resp BP Pulse Ox 98.2 F 92 20 136/62 H 96 06/02/17 06:07 06/02/17 06:07 06/02/17 06:07 06/02/17 06:07 06/02/17 06:07 - Notes Notes: PHYSICAL EXAMINATION: GENERAL: Well-appearing, well-nourished and in no acute distress. HEAD: Atraumatic, normocephalic. EYES: Pupils equal round and reactive to light, extraocular movements intact, sclera anicteric, conjunctiva are normal. ENT: nares patent, oropharynx clear without exudates. Moist mucous membranes. NECK: Normal range of motion, supple without lymphadenopathy LUNGS: Breath sounds clear to auscultation bilaterally and equal. No wheezes rales or rhonchi. HEART: Regular rate and rhythm without murmurs ABDOMEN: Soft, nontender, normoactive bowel sounds. No guarding, no rebound. No masses appreciated. EXTREMITIES: Normal range of motion, no pitting or edema. No cyanosis. NEUROLOGICAL: Cranial nerves grossly intact. Normal speech, normal gait. Normal sensory and motor exams. PSYCH: Normal mood, normal affect. SKIN: Warm, Dry, normal turgor, no rashes or lesions noted. Course - Re-evaluation Re-evalutation: Patient with 2 brief episodes of a sharp sensation into her left upper chest and shoulder. Her EKGs do not show any ischemic changes and both troponins are negative. HEART score is 3. Rest of blood work is unremarkable and she has no risk factors for PE. Symptoms are atypical for aortic dissection at this time. She has an appointment with her primary care physician tomorrow and instructed her to follow-up for further evaluation and treatment. Given very strict return precautions and she understands. - Vital Signs Vital signs: Temp Pulse Resp BP Pulse Ox 98.2 F 92 20 136/62 H 96 06/02/17 06:07 06/02/17 06:07 06/02/17 06:07 06/02/17 06:07 06/02/17 06:07 - Laboratory Result Diagrams: 06/02/17 08:08 06/02/17 08:08 Laboratory results interpreted by me: 06/02/17 06/02/17 08:08 08:08 Hgb 11.4 L Hct 34.6 L RDW 14.1 H Creatinine 1.39 H Est GFR ( Amer) 48 L Est GFR (Non-Af Amer) 40 L - Diagnostic Test Radiology reviewed: Image reviewed, Reports reviewed Radiology results interpreted by me: CXR: NAD - EKG Interpretation by Me EKG shows normal: Sinus rhythm, Vida, Intervals, QRS Complexes, ST-T Waves Rate: Normal When compared to previous EKG there are: Previous EKG unavailable Discharge - Discharge Clinical Impression: Chest pain Qualifiers: Chest pain type: unspecified Qualified Code(s): R07.9 - Chest pain, unspecified Condition: Stable Disposition: HOME, SELF-CARE Additional Instructions: CHEST PAIN OF UNCLEAR CAUSE: The exact cause of your chest pain isn't clear. Fortunately, there is no evidence of a dangerous medical condition. Further testing may be required to find the source of the pain. Most often, we find that this pain is coming from the chest wall -- the muscles or rib joints in the chest. But chest pain can come from the lung and lung lining, the esophagus, the heart valves or heart lining, and even the stomach or gallbladder. Rest. Eat lightly until the pain is gone. We may prescribe medicine for pain and inflammation. You should call the physician immediately if the pain radiates to the shoulder, jaw or arms; if you start to run a fever or develop a cough; or if you develop shortness of breath, or other new or alarming symptoms. NORMAL EXAM AND WORKUP: At this time, your examination and workup show no significant abnormality. No significant abnormal physical findings were noted. All laboratory, EKG, and imaging (x-ray, CT scans, ultrasound) studies that were ordered show no significant abnormality. Although your examination and all studies that were ordered showed no significant abnormal finding, there are no examinations and no studies that are 100% accurate. There is always the possibility that some abnormality could exist and not be detected with physical examination or within the limits and capabilities of laboratory and other studies. You should return or follow up as you were instructed on your visit today for further evaluation if your symptoms do not resolve. ANGINA EPISODE: Your physician has diagnosed the pain you experienced as an episode of angina. Angina occurs when a portion of the heart muscle temporarily lacks oxygen. It does not cause any permanent heart damage, but serves as a warning. Hospitalization is not necessary now. Evaluation of your cardiac condition , and medical therapy for angina will be necessary. It's important you be sure to keep all appointments and take medication exactly as prescribed. Angina is usually treated with a type of "nitrate" medication. This is available as ointment, pills, or sublingual (under the tongue) tablets. Depending on your clinical situation, other medications may be added to help control angina. These may include beta blockers or calcium blockers. If episodes of angina are occurring with increased frequency, or if chest pain lasts longer than 15 minutes or does not respond to nitroglycerin, you must seek emergency medical care immediately. ASPIRIN: Aspirin has been shown to have a beneficial effect on blood circulation by reducing the clotting effect of platelets in the blood. These beneficial effects can be achieved by taking just a single baby (81 mg) aspirin a day. It is recommended that any person over the age of forty take a single baby aspirin every day for heart and brain circulation, unless you are allergic to aspirin or have some significant bleeding disorder. It is strongly recommended that people who have proven cardiac or blood circulation disturbances should take a baby aspirin every day. FOLLOW-UP CARE: If you have been referred to a physician for follow-up care, call the physician s office for an appointment as you were instructed or within the next two days. If you experience worsening or a significant change in your symptoms, notify the physician immediately or return to the Emergency Department at any time for re-evaluation. Referrals: [facility] [Outside] - Follow up tomorrow
[2017-06-02 08:21] LABS: ABSOLUTE BASOPHILS # (AUTO) 0.1 10^3/uL (0.0-0.2); ABSOLUTE EOSINOPHILS # (AUTO) 0.5 10^3/uL (0.0-0.6); ABSOLUTE LYMPHOCYTES (AUTO) 2.5 10^3/uL (0.5-4.7); ABSOLUTE MONOCYTES (AUTO) 0.9 10^3/uL (0.1-1.4); BASOPHILS % (AUTO) 0.6 % (0-2); HEMATOCRIT 34.6 % (36.0-47.0); HEMOGLOBIN 11.4 g/dL (12.0-15.5); LYMPHOCYTES % (AUTO) 27.9 % (13-45); MEAN CORPUSCULAR HEMOGLOBIN 27.9 pg (27.0-33.4); MEAN CORPUSCULAR HGB CONC 33.1 g/dL (32.0-36.0); MEAN CORPUSCULAR VOLUME 85 fl (80-97); MONOCYTES % (AUTO) 9.7 % (3-13); PLATELET COUNT 313 10^3/uL (150-450); RED BLOOD COUNT 4.09 10^6/uL (3.72-5.28); RED CELL DISTRIBUTION WIDTH 14.1 % (11.5-14.0); SEGMENTED NEUTROPHILS % (AUTO) 55.8 % (42-78); TOTAL CELLS COUNTED % (AUTO) 100 %
--- NOTE | 2017-06-02 08:29 | RADIOLOGY REPORT (SQ) ---
EXAM DESCRIPTION: CHEST SINGLE VIEW COMPLETED DATE/TIME: 06/02/2017 8:04 am REASON FOR STUDY: chest pain COMPARISON: 02/15/2017 EXAM PARAMETERS: NUMBER OF VIEWS: One view. TECHNIQUE: Single frontal radiographic view of the chest acquired. RADIATION DOSE: NA LIMITATIONS: None. FINDINGS: LUNGS AND PLEURA: No opacities, masses or pneumothorax. No pleural effusion. MEDIASTINUM AND HILAR STRUCTURES: No masses. Contour normal. HEART AND VASCULAR STRUCTURES: Heart normal in size. Normal vasculature. BONES: No acute findings. HARDWARE: None in the chest. OTHER: No other significant finding. IMPRESSION: NO ACUTE RADIOGRAPHIC FINDING IN THE CHEST. TECHNICAL DOCUMENTATION: JOB ID: [id number] [employer]- All Rights Reserved
[2017-06-02 08:43] LABS: ALANINE AMINOTRANSFERASE 30 U/L (9-52); ALBUMIN 4.1 g/dL (3.5-5.0); ALKALINE PHOSPHATASE 110 U/L (38-126); ANION GAP 13 (5-19); ASPARTATE AMINO TRANSFERASE 17 U/L (14-36); BILIRUBIN,DIRECT 0.1 mg/dL (0.0-0.4); BILIRUBIN,TOTAL 0.2 mg/dL (0.2-1.3); BLOOD UREA NITROGEN 19 mg/dL (7-20); CALCIUM 9.5 mg/dL (8.4-10.2); CARBON DIOXIDE 28 mmol/L (22-30); CHLORIDE 102 mmol/L (98-107); CREATINE KINASE 47 U/L (30-135); GLUCOSE 101 mg/dL (75-110); POTASSIUM 4.3 mmol/L (3.6-5.0); SODIUM 142.7 mmol/L (137-145); TOTAL PROTEIN 6.7 g/dL (6.3-8.2)
[2017-06-02 12:13] VITALS: BP 121/62
--- NOTE | 2017-06-02 17:25 | EKG REPORT ---
SEVERITY:- BORDERLINE ECG - SINUS RHYTHM PROBABLE LEFT ATRIAL ABNORMALITY : Confirmed by: Noble Haines 02-Jun-2017 17:25:01
--- NOTE | 2017-06-02 17:25 | EKG REPORT ---
SEVERITY:- NORMAL ECG - SINUS RHYTHM : Confirmed by: Noble Haines 02-Jun-2017 17:24:53
== END 2017-06-02 12:46 | disposition home or self-care (01) ==
LOC: ER 05:55
DX: R07.9 Chest pain, unspecified (principal); M25.512 Pain in left shoulder; I25.10 Atherosclerotic heart disease of native coronary artery without angina pectoris; I10 Essential (primary) hypertension; I25.2 Old myocardial infarction; Z88.1 Allergy status to other antibiotic agents; Z95.5 Presence of coronary angioplasty implant and graft
CPT/HCPCS: 36415; 71045; 80053; 82550; 84484; 85025; 93005; 93010; 99285

== ENCOUNTER 2017-07-10 04:43 | Observation (INO) | payer SELFPAY ==
[2017-07-10] MEDS ORDERED: ASPIRIN 81 MG TABLET, CHEWABLE PO ONE (05:59)
--- NOTE | 2017-07-10 06:24 | ER Document Report ---
ED Cardiac - General Mode of Arrival: Ambulatory Information source: Patient TRAVEL OUTSIDE OF THE [place] IN LAST 30 DAYS: No - HPI Patient complains to provider of: Chest pain Quality of pain: Sharp, Stabbing Chest pain radiation location: Left arm, Right arm Cardiac risk factors: Hypertension, Smoker, Hx [place] - 2016 Associated symptoms: Other - see notes above <ALECIA FLOWERS - Last Filed: 07/10/17 06:42> <SEVERO JOEL - Last Filed: 07/10/17 14:51> - General Chief Complaint: Chest Pain Stated Complaint: CHEST PAIN Notes: 52 year old female with history of [place] (2015; 1 stent) hyperlipidemia, and hypertension presents to the ED complaining of sharp-shooting left sided chest pain that started at 0300 this morning and has radiated to her bilateral arms. Patient additionally complaining of diaphoresis. Patient reports having similar symptoms last week and was evaluated here on 06/02/2017 with normal findings. Patient is concerned that her chest pain is becoming more frequent and has an appointment with a lens mold setter next week prior to having a left sided carotid endarterectomy. Patient reports having a stress test 6 months ago at [facility]. Patient took ASAx4 at 0324 this morning secondary to the pain. PCP: [facility] (ALECIA FLOWERS) - Related Data Allergies/Adverse Reactions: tetracycline [Tetracycline] Allergy (Verified 10/02/15 02:23) Past Medical History - General Information source: Patient - Social History Smoking Status: Current Every Day Smoker Chew tobacco use (# tins/day): No Frequency of alcohol use: None Drug Abuse: None Family History: CAD - both parents - Past Medical History Cardiac Medical History: Reports: Hx Coronary Artery Disease, Hx Heart Attack, Hx Hypercholesterolemia, Hx Hypertension Denies: Hx Congestive Heart Failure Pulmonary Medical History: Denies: Hx Asthma, Hx Bronchitis, Hx COPD, Hx Pneumonia, Hx Tuberculosis Neurological Medical History: Reports: Hx Seizures - 09/2015 seizure one time while here at the hospital Endocrine Medical History: Denies: Hx Diabetes Mellitus Type 2 Renal/ Medical History: Denies: Hx End Stage Renal Disease, Hx Kidney Stones, Hx Peritoneal Dialysis GI Medical History: Reports: Hx Gastroesophageal Reflux Disease, Hx Ulcer. Denies: Hx Cirrhosis Musculoskeltal Medical History: Reports Hx Arthritis, Denies Hx Multiple Sclerosis Psychiatric Medical History: Denies: Hx Bipolar Disorder, Hx Depression, Hx Schizophrenia Past Surgical History: Reports: Hx Cardiac Catheterization, Hx Section , Hx Coronary Stent - x1; June 2015, Hx Hysterectomy - Immunizations Immunizations up to date: No Hx Diphtheria, Pertussis, Tetanus Vaccination: Yes <ALECIA FLOWERS - Last Filed: 07/10/17 06:42> Review of Systems - Review of Systems Constitutional: See HPI, Diaphoresis EENT: No symptoms reported Cardiovascular: See HPI, Chest pain - radiating to bilateral arms Respiratory: No symptoms reported Gastrointestinal: No symptoms reported Genitourinary: No symptoms reported Female Genitourinary: No symptoms reported Musculoskeletal: No symptoms reported Skin: No symptoms reported Hematologic/Lymphatic: No symptoms reported Neurological/Psychological: No symptoms reported -: Yes All other systems reviewed and negative <ALECIA FLOWERS - Last Filed: 07/10/17 06:42> Physical Exam <ALECIA FLOWERS - Last Filed: 07/10/17 06:42> <SEVERO JOEL - Last Filed: 07/10/17 14:51> - Vital signs Vitals: Temp Pulse Resp BP Pulse Ox 97.6 F 91 22 H 212/74 H 96 07/10/17 04:45 07/10/17 04:45 07/10/17 04:45 07/10/17 04:45 07/10/17 04:45 - Notes Notes: GENERAL: Alert, interacts well. No acute distress. HEAD: Normocephalic, atraumatic. EYES: Pupils equal, round, and reactive to light. Extraocular movements intact. ENT: Oral mucosa moist, tongue midline. NECK: Full range of motion. Supple. Trachea midline. LUNGS: Inspiratory squeak to the right upper lobe, but clears with deep breathing. No wheezes, rales, or rhonchi. No respiratory distress. HEART: Regular rate and rhythm. Gallops, or rubs. 1/6 systolic murmur. ABDOMEN: Soft, non-tender. Non-distended. Bowel sounds present in all 4 quadrants. EXTREMITIES: Moves all 4 extremities spontaneously. No edema, radial and dorsalis pedis pulses 2/4 bilaterally. No cyanosis. NEUROLOGICAL: Alert and oriented x3. Normal speech. PSYCH: Normal affect, normal mood. SKIN: Warm, dry, normal turgor. No rashes or lesions noted. (ALECIA FLOWERS) Course - Laboratory Result Diagrams: 07/10/17 06:25 07/10/17 06:25 <ALECIA FLOWERS - Last Filed: 07/10/17 06:42> - Laboratory Result Diagrams: 07/10/17 06:25 07/10/17 06:25 <SEVERO JOEL - Last Filed: 07/10/17 14:51> - Re-evaluation Re-evalutation: 07/10/17 07:53 Initial cardiac enzymes negative, EKG nonischemic, last stress test was approximately 1 year ago. Patient is high risk enough that I feel she should stay for full rule out including stress test. Attempt to call Dr. Nicholas, he is in a family meeting states he will call me back. 07/10/17 07:54 Dr. Nicholas called back, states to call Radha Dockery nurse practitioner. Discussed the case with Radha Dockery, accepts the patient to her service. ( SEVERO JOEL) - Vital Signs Vital signs: Temp Pulse Resp BP Pulse Ox 98.3 F 68 18 129/57 H 98 07/10/17 11:30 07/10/17 11:30 07/10/17 11:30 07/10/17 11:30 07/10/17 11:30 - Laboratory Laboratory results interpreted by me: 07/10/17 07/10/17 06:25 06:25 RDW 15.4 H Est GFR (Non-Af Amer) 55 L - EKG Interpretation by Me Additional EKG results interpreted by me: 07/10/17 07:57 EKG shows sinus rhythm rate of 76, first-degree AV block, normal axis, no ST segment elevations or depressions, there is nonspecific T-wave flattening in aVL per my interpretation. (SEVERO JOEL) Discharge <ALECIA FLOWERS - Last Filed: 07/10/17 06:42> - Discharge Admitting Provider: Hospitalist - Radha Dockery Unit Admitted: Telemetry <SEVERO JOEL - Last Filed: 07/10/17 14:51> - Discharge Clinical Impression: Chest pain, rule out acute myocardial infarction Hypertension Qualifiers: Hypertension type: essential hypertension Qualified Code(s): I10 - Essential ( primary) hypertension Condition: Fair Disposition: ADMITTED OBSERVATION Scribe Attestation: 07/10/17 14:51 I personally performed the services described in the documentation, reviewed and edited the documentation which was dictated to the scribe in my presence, and it accurately records my words and actions. (SEVERO JOEL) Scribe Documentation - Scribe Written by Scribe:: Bridgette Rachel, 07/10/2017 [id number] acting as scribe for :: Bibi <ALECIA FLOWERS - Last Filed: 07/10/17 06:42>
--- NOTE | 2017-07-10 06:33 | RADIOLOGY REPORT (SQ) ---
EXAM DESCRIPTION: CHEST SINGLE VIEW CLINICAL HISTORY: cp COMPARISON: 06/02/2017 FINDINGS: Single frontal view of the chest. The cardiomediastinal silhouette has normal size and contour. No consolidation, pneumothorax, or pleural effusion. No displaced rib fractures identified. Upper abdominal soft tissues are unremarkable. Postoperative change in the right neck. Leads overlie the chest. IMPRESSION: 1. No acute pulmonary process identified.
[2017-07-10 06:40] LABS: ABSOLUTE BASOPHILS # (AUTO) 0.1 10^3/uL (0.0-0.2); ABSOLUTE EOSINOPHILS # (AUTO) 0.4 10^3/uL (0.0-0.6); ABSOLUTE LYMPHOCYTES (AUTO) 3.4 10^3/uL (0.5-4.7); ABSOLUTE MONOCYTES (AUTO) 0.9 10^3/uL (0.1-1.4); ABSOLUTE NEUT (AUTO) 4.7 10^3/uL (1.7-8.2); BASOPHILS % (AUTO) 0.6 % (0-2); EOSINOPHILS % (AUTO) 4.1 % (0-6); HEMATOCRIT 36.5 % (36.0-47.0); HEMOGLOBIN 12.2 g/dL (12.0-15.5); MEAN CORPUSCULAR HEMOGLOBIN 27.9 pg (27.0-33.4); MEAN CORPUSCULAR HGB CONC 33.3 g/dL (32.0-36.0); MEAN CORPUSCULAR VOLUME 84 fl (80-97); MONOCYTES % (AUTO) 9.6 % (3-13); PLATELET COUNT 314 10^3/uL (150-450); RED BLOOD COUNT 4.36 10^6/uL (3.72-5.28); RED CELL DISTRIBUTION WIDTH 15.4 % (11.5-14.0); SEGMENTED NEUTROPHILS % (AUTO) 49.7 % (42-78); TOTAL CELLS COUNTED % (AUTO) 100 %; WHITE BLOOD COUNT 9.5 10^3/uL (4.0-10.5)
[2017-07-10 06:50] LABS: ALANINE AMINOTRANSFERASE 48 U/L (9-52); ALBUMIN 4.5 g/dL (3.5-5.0); ALKALINE PHOSPHATASE 121 U/L (38-126); ANION GAP 14 (5-19); ASPARTATE AMINO TRANSFERASE 30 U/L (14-36); BILIRUBIN,DIRECT 0.1 mg/dL (0.0-0.4); BILIRUBIN,TOTAL 0.2 mg/dL (0.2-1.3); BLOOD UREA NITROGEN 19 mg/dL (7-20); CALCIUM 9.4 mg/dL (8.4-10.2); CARBON DIOXIDE 26 mmol/L (22-30); CHLORIDE 102 mmol/L (98-107); CREATINE KINASE 47 U/L (30-135); GLUCOSE 98 mg/dL (75-110); POTASSIUM 4.1 mmol/L (3.6-5.0); TOTAL PROTEIN 6.9 g/dL (6.3-8.2)
[2017-07-10 07:03] LABS: TROPONIN I < 0.012 ng/mL
[2017-07-10] MEDS ORDERED: ACETAMINOPHEN 325 MG TABLET PO ONE (07:47)
--- NOTE | 2017-07-10 08:12 | EKG REPORT ---
SEVERITY:- NORMAL ECG - SINUS RHYTHM : Confirmed by: Beck Henry MD 10-Jul-2017 08:12:21
[2017-07-10] MEDS ORDERED: MORPHINE SULFATE 10 MG/ML INJ IV PRN (08:40)
[2017-07-10] MEDS ORDERED: NITROGLYCERIN 0.4 MG/TAB 25 TAB/BOTTLE SL PRN (08:40)
[2017-07-10] MEDS ORDERED: ONDANSETRON 4 MG TAB.RAPDIS PO PRN (08:40)
[2017-07-10] MEDS ORDERED: METOPROLOL TARTRATE PF/INJ 5 MG/5 ML SDV IV PRN (08:57)
[2017-07-10] MEDS: ASPIRIN 81 MG TABLET, ENT COATED PO SCH (10:14)
[2017-07-10] MEDS: LISINOPRIL 10 MG TABLET PO SCH (10:15)
[2017-07-10] MEDS: HYDROCHLOROTHIAZIDE 12.5 MG CAPSULE PO SCH (10:16)
[2017-07-10] MEDS: METOPROLOL SUCCINATE 25 MG TAB.SR.24H PO SCH (10:16)
[2017-07-10] MEDS: TRAMADOL HCL 50 MG TABLET PO PRN ×2 (14:11→21:19)
[2017-07-10] MEDS ORDERED: LIDOCAINE 2% VISCOUS SOLN 20 ML UDCUP PO ONE ×2 (14:30→16:30)
[2017-07-10] MEDS ORDERED: CLOPIDOGREL BISULFATE 75 MG TABLET PO ONE (15:00)
--- NOTE | 2017-07-10 16:06 | PDOC H&P ---
History of Present Illness Admission Date/PCP: 07/10/17 08:30 Patient complains of: CHEST PAIN History of Present Illness: KATERINE FALL is a 52 year old female who presented to the emergency department with left-sided chest pain radiating to both arms and diaphoresis. She states that she woke up at 0300 with the pain and has been waxing and waning all day. The pain is centered mostly in her left chest, she describes it as a "stabbing" sensation. The patient reports that she took tramadol and Zantac earlier today in hopes of relieving her pain, but they did not help "at all." While in the emergency department, patient was given 325mg Aspirin. At the time of assessment states her chest pain is a 2/10. EKG showed normal sinus rhythm with no evidence of acute ischemia or infarct. Cardiac enzymes were normal. Chest x-ray was benign. Of note, the patient was seen at [facility] emergency department for chest pain approximately 2 weeks ago. She had serial cardiac enzymes done, and they were all normal. The patient was discharged to home from the emergency department. PMH: hypertension, hyperlipidemia, HI with one stent (2015), GERD, bilateral internal carotid artery stenosis (70% stenosed on both sides), bilateral carotid endarterectomy. The patient was evaluated in the emergency department. She is resting calmly in bed, awake and oriented, participatory in care, at the bedside. She stated that she was relatively pain free. Her sharp chest pain was constantly present (pain 2/10) with intermittent episodes of severe pain (7/10). She denied dizziness, nausea, or shortness of breath. The patient does have a grade II systolic murmur. Additionally, +bruits are heard over the R and L carotid arteries. Her lungs are clear to auscultation and she does not require supplemental oxygen. Past Medical History Cardiac Medical History: Reports: Coronary Artery Disease, Myocardial Infarction , Hyperlipidema, Hypertension, Other - CAROTID ARTERY STENOSIS Denies: Congestive Heart Failure Pulmonary History Note: 1/2 PPD SMOKING HISTORY FOR 30 YEARS Neurological Medical History: Reports: Seizures - 09/2015 seizure one time while here at the hospital Endocrine Medical History: Denies: Diabetes Mellitus Type 2 Renal/ Medical History: Denies: End Stage Renal Disease GI Medical History: Reports: Gastroesophageal Reflux Disease Denies: Cirrhosis GI History Note: ULCERATED ESOPHAGUS (2016) Musculoskeltal Medical History: Reports: Arthritis Psychiatric Medical History: Denies: Bipolar Disorder, Depression Hematology: Reports: Anemia Denies: Bleeding Tendencies Past Surgical History Past Surgical History: Reports: Cardiac Catheterization, Section, Coronary Stent - x1; June 2015, Hysterectomy, Other - R BREAST LUMPECTOMY; B /L ANKLE REPAIR S/P FRACTURE Social History Information Source: Patient Lives with: Spouse/Significant other Smoking Status: Current Every Day Smoker Cigarettes Packs Per Day: 10 Number of Years Smokin Frequency of Alcohol Use: None Hx Recreational Drug Use: No Drugs: None Hx Prescription Drug Abuse: No - Advance Directive Resuscitation Status: Full Code Family History Family History: CAD - both parents, Hypertension, Malignancy Family History: MOTHER - - LUNG CANCER (SMOKING), HTN, CAD, ?CABG FATHER - NO RELATIONSHIP - HI 2 ADULT CHILDREN - NO HEALTH ISSUES Parental Family History Reviewed: Yes Children Family History Reviewed: Yes Sibling(s) Family History Reviewed.: Unknown Medication/Allergy Home Medications: Aspirin [Ecotrin 81 mg EC Tablet] 81 mg PO DAILY 07/10/17 Clopidogrel Bisulfate [Plavix 75 mg Tablet] 75 mg PO DAILY 07/10/17 Esomeprazole Magnesium [Nexium] 40 mg PO DAILY 07/10/17 Fish Oil/Dha/Epa [Fish Oil 1,200 mg Fish Oil] 3 tab PO BID 07/10/17 Lisinopril/Hydrochlorothiazide [Lisinopril-Hctz 20-12.5 mg Tab] 1 tab PO DAILY 07/10/17 Ranitidine HCl [Zantac] 150 mg PO DAILY 07/10/17 Rosuvastatin Calcium [Crestor 20 mg Tablet] 20 mg PO DAILY 07/10/17 Tramadol HCl [Ultram 50 mg Tablet] 50 mg PO Q4HP PRN 07/10/17 Allergies/Adverse Reactions: tetracycline [Tetracycline] Allergy (Verified 10/02/15 02:23) Review of Systems Constitutional: PRESENT: night sweats Cardiovascular: PRESENT: chest pain - ENDORSES SHARP CHEST PAIN Respiratory: PRESENT: other - CHRONIC SHORTNESS OF BREATH. 30PACK YEAR SMOKING HISTORY Gastrointestinal: PRESENT: nausea - ASSOCIATED WITH CHEST PAIN Integumentary: PRESENT: diaphoresis - STATES SHE BECOMES DIAPHORETIC ASSOCIATED WITH VERY HIGH OR LOW BLOOD PRESSURE Neurological: PRESENT: dizziness, weakness - PATIENT ENDORSES DIZZINESS AND WEAKNESS ASSOCIATED WITH VERY HIGH AND LOW BP Hematologic/Lymphatic: ABSENT: as per HPI, easy bleeding, easy bruising, lymphadenopathy, other Allergic/Immunologic: PRESENT: other - TETRACYCLINE (HIVES) Physical Exam Vital Signs: Temp Pulse Resp BP Pulse Ox 98.3 F 68 18 129/57 H 98 07/10/17 11:30 07/10/17 11:30 07/10/17 11:30 07/10/17 11:30 07/10/17 11:30 General appearance: PRESENT: no acute distress, well-developed, well-nourished Eye exam: PRESENT: conjunctiva pink Mouth exam: PRESENT: moist Neck exam: PRESENT: full ROM Cardiovascular exam: PRESENT: +S1, +S2 Pulses: PRESENT: normal radial pulses, +1 pedal pulses bilateral Vascular exam: PRESENT: normal capillary refill GI/Abdominal exam: PRESENT: normal bowel sounds, soft Rectal exam: PRESENT: deferred Extremities exam: PRESENT: full ROM Musculoskeletal exam: PRESENT: full ROM Neurological exam: PRESENT: alert, awake, oriented to person, oriented to place , oriented to time, oriented to situation Psychiatric exam: PRESENT: appropriate affect Results Impressions: Chest X-Ray 07/10/17 05:59 IMPRESSION: 1. No acute pulmonary process identified. Assessment & Plan - Diagnosis (1) Chest pain, rule out acute myocardial infarction Is this a current diagnosis for this admission?: Yes Plan: Patient is currently complaining of left-sided stabbing chest pain that radiates to both arms. Given her history of HI, vascular disease, and smoking, the patient is at high risk for acute coronary syndrome/another HI. Cardiology has been consulted. The patient will be admitted for chest pain observation. EKG demonstrated normal sinus rhythm with no evidence of acute infarct or ischemia, no ectopy, no BBB, no heart block. Will obtain follow up EKG if chest pain returns. echocardiogram and stress test ordered. Initial cardiac enzymes were normal but will continue to trend x 2. Continue home antihypertensives, as well as daily Aspirin, statin, and low dose beta paul. Patient was already taking Plavix for her bilateral carotid stenosis status post carotid endarterectomy. The patient was preparing for a revision of the L carotid endarterectomy. The patient states that she is compliant with her medications. Will continue 75mg Plavix. (2) GERD (gastroesophageal reflux disease) Qualifiers: Esophagitis presence: esophagitis presence not specified Qualified Code(s) : K21.9 - Gastro-esophageal reflux disease without esophagitis Is this a current diagnosis for this admission?: Yes Plan: The patient states she has been seeing Dr. Weaver in [place] for her GERD. She reports having an EGD done in 2016 because she was coughing/vomiting up blood. According to the patient, the EGD revealed she had an ulcerated esophagus. She has not had symptoms of an upper or lower GI bleed since then. Currently on nexium at home for GERD, will place patient on PPI. Additionally, when the patient was hospitalized for CHEST PAIN last year, her pain was relieved with a GI cocktail. Ultimately, it was determined that her pain was related to her GERD. Will start maalox and viscous lidocaine PO as needed for pain. (3) Hypertension Qualifiers: Hypertension type: essential hypertension Qualified Code(s): I10 - Essential (primary) hypertension Is this a current diagnosis for this admission?: Yes Plan: The patient has a history of hypertension, will restart home dose of lisinopril/ HCTZ. She states that her blood pressure is "pretty well controlled" at home, her SBP is typically in the 140s. In addition to her home medications, patient will start taking low-dose metoprolol for cardiac protection. IV metoprolol as needed for systolic blood pressure > 180 (4) Cigarette smoker one half pack a day or less Is this a current diagnosis for this admission?: Yes Plan: Patient reports smoking half pack of cigarettes per day for 30 years. Smoking cessation and nictoine patch offered. (5) Carotid stenosis Qualifiers: Laterality: bilateral Qualified Code(s): I65.23 - Occlusion and stenosis of bilateral carotid arteries Is this a current diagnosis for this admission?: Yes Plan: Patient has a history of bilateral carotid stenosis, underwent bilateral carotid endarterectomies last year. +b/l bruit. She endorses lightheadedness ( never syncope) when her blood pressure is elevated. Patient states that during a routine follow up carotid duplex, it was discovered that her L internal carotid was re-stenosed. She is planning to have another carotid endarterectomy next month. Currently on Plavix 75 mg daily, will continue. - Time Time Spent: 30 to 50 Minutes Medications reviewed and adjusted accordingly: Yes Anticipated discharge: Home Within: within 72 hours - Inpatient Certification Based on my medical assessment, after consideration of the patient's comorbidities, presenting symptoms, or acuity I expect that the services needed warrant INPATIENT care.: Yes I certify that my determination is in accordance with my understanding of Medicare's requirements for reasonable and necessary INPATIENT services [42 CFR 412.3e].: Yes Medical Necessity: Risk of Complication if Not Cared For in Hospital - Plan Summary Plan Summary: Ultimately, the plan is to discharge the patient home
[2017-07-10] MEDS ORDERED: MAG HYDROX/AL HYDROX/SIMETH SUSP 30 ML UDCUP PO ONE (16:30)
--- NOTE | 2017-07-10 19:46 | PDOC CONSULTATION ---
Consultation Consult Date: 07/10/17 Attending physician:: RUSSELL OLIVA Consult reason:: Chest pain History of Present Illness Admission Date/PCP: 07/10/17 08:30 Patient complains of: Chest pain History of Present Illness: KATERINE FALL is a 52 year old female who presented to the emergency department with left-sided chest pain radiating to both arms and diaphoresis. She states that she woke up at 0300 with the pain and has been waxing and waning all day. The pain is centered mostly in her left chest, she describes it as a "stabbing" sensation. The patient reports that she took tramadol and Zantac earlier today in hopes of relieving her pain, but they did not help "at all." While in the emergency department, patient was given 325mg Aspirin. At the time of assessment states her chest pain is a 2/10. EKG showed normal sinus rhythm with no evidence of acute ischemia or infarct. Cardiac enzymes were normal. Chest x-ray was benign. Of note, the patient was seen at [facility] emergency department for chest pain approximately 2 weeks ago. She had serial cardiac enzymes done, and they were all normal. The patient was discharged to home from the emergency department. PMH: hypertension, hyperlipidemia, [place] with one stent (2016), GERD, bilateral internal carotid artery stenosis (70% stenosed on both sides), bilateral carotid endarterectomy. The patient was evaluated in the emergency department. She is resting calmly in bed, awake and oriented, participatory in care, at the bedside. She stated that she was relatively pain free. Her sharp chest pain was constantly present (pain 2/10) with intermittent episodes of severe pain (7/10). She denied dizziness, nausea, or shortness of breath. The patient does have a grade II systolic murmur. Additionally, +bruits are heard over the R and L carotid arteries. Her lungs are clear to auscultation and she does not require supplemental oxygen. This history was reviewed and confirmed. In addition patient describes subclavian artery stenosis on the left side. She tells me that blood pressure would need to be obtained only in the right arm. In fact patient does have unequal pulses in both arms. The left arm pulse being weak. Patient continues to smoke in spite of better judgment. Past Medical History Cardiac Medical History: Reports: Coronary Artery Disease, Myocardial Infarction , Hyperlipidema, Hypertension, Other - CAROTID ARTERY STENOSIS Denies: Congestive Heart Failure Pulmonary Medical History: Denies: Asthma, Bronchitis, Chronic Obstructive Pulmonary Disease (COPD), Pneumonia, Tuberculosis Neurological Medical History: Reports: Seizures - 09/2015 seizure one time while here at the hospital Endocrine Medical History: Denies: Diabetes Mellitus Type 2 Renal/ Medical History: Denies: End Stage Renal Disease GI Medical History: Reports: Gastroesophageal Reflux Disease Denies: Cirrhosis Musculoskeltal Medical History: Reports: Arthritis Psychiatric Medical History: Denies: Bipolar Disorder, Depression Hematology: Reports: Anemia Denies: Bleeding Tendencies Past Surgical History Past Surgical History: Reports: Cardiac Catheterization, Section, Coronary Stent - x1; June 2015, Hysterectomy, Other - R BREAST LUMPECTOMY; B /L ANKLE REPAIR S/P FRACTURE Social History Information Source: Patient Lives with: Spouse/Significant other Smoking Status: Current Every Day Smoker Cigarettes Packs Per Day: 10 Number of Years Smokin Frequency of Alcohol Use: None Hx Recreational Drug Use: No Drugs: None Hx Prescription Drug Abuse: No - Advance Directive Resuscitation Status: Full Code Family History Family History: CAD - both parents, Hypertension, Malignancy Parental Family History Reviewed: Yes Children Family History Reviewed: Yes Sibling(s) Family History Reviewed.: Yes Medication/Allergy Home Medications: Aspirin [Ecotrin 81 mg EC Tablet] 81 mg PO DAILY 07/10/17 Clopidogrel Bisulfate [Plavix 75 mg Tablet] 75 mg PO DAILY 07/10/17 Esomeprazole Magnesium [Nexium] 40 mg PO DAILY 07/10/17 Fish Oil/Dha/Epa [Fish Oil 1,200 mg Fish Oil] 3 tab PO BID 07/10/17 Lisinopril/Hydrochlorothiazide [Lisinopril-Hctz 20-12.5 mg Tab] 1 tab PO DAILY 07/10/17 Ranitidine HCl [Zantac] 150 mg PO DAILY 07/10/17 Rosuvastatin Calcium [Crestor 20 mg Tablet] 20 mg PO DAILY 07/10/17 Tramadol HCl [Ultram 50 mg Tablet] 50 mg PO Q4HP PRN 07/10/17 Allergies/Adverse Reactions: tetracycline [Tetracycline] Allergy (Verified 10/02/15 02:23) Review of Systems Review of Systems: Please see history of present illness and past medical history as wall. Constitutional: No fever or chills reported. Head : No recent chronic headaches, recent head injury. Eyes: No recent eye pain, diplopia, redness, discharge, acute visual changes. Ears: No recent chronic ear pain, acute hearing loss, ear discharge. Oral cavity: No recent ulcerations, bleeding, oral cavity discomfort. Neck: No recent acute neck pain reported. Hematologic: No recent easy bruising or bleeding or hematologic malignancy reported. Lymphatic: No recent lymphatic malignancy, chronic lymphadenopathy reported yet Cardiovascular system review: See history of present illness. Respiratory system review: No recent chronic cough, hemoptysis, blood clots in the lungs reported. Mild Shortness of breath on exertion Gastrointestinal system review: Negative for any recent acute or chronic abdominal pain, hematemesis, melena, recent change in bowel habits. Genitourinary system review: No recent acute or chronic hematuria, flank pain, UTI etc. reported. Skin system review: Negative for any recent abnormal bruising, no rash, no pruritus reported. Neurologic: No prior history of strokes, mini strokes, seizure disorder. History of bilateral carotid stenosis and also left subclavian stenosis. Psychologic: No history of major psychosis or major depression reported. Musculoskeletal: Minor aches and pains reported. No acute joint swelling reported. Endocrine: No recent polyuria, polydipsia, recent heat or cold intolerance. Physical Exam Vital Signs: Temp Pulse Resp BP Pulse Ox 98.2 F 64 18 130/56 H 97 07/10/17 15:26 07/10/17 15:26 07/10/17 15:26 07/10/17 15:26 07/10/17 15:26 Intake & Output 07/09/17 07/10/17 07/11/17 06:59 06:59 06:59 Intake Total 266 Balance 266 Exam: GENERAL: well-nourished and in no acute distress. Alert and oriented x3 HEAD: Atraumatic, normocephalic. EYES: Pupils equal round and reactive to light, extraocular movements intact, sclera anicteric, conjunctiva are normal. ENT: TMs normal, nares patent, oropharynx clear without exudates. Moist mucous membranes. No oral ulcerations or bleeding gums noted NECK: supple without lymphadenopathy. Trachea is central. No cervical or axillary lymphadenopathy noted. Carotids are 2+, JVD WNL LUNGS: Respiration seems nonlabored, no significant accessory muscle action noted. Breath sounds clear to auscultation bilaterally and equal noted. No wheezes rales or rhonchi noted. No significant dullness noted on percussion. CHEST: Palpation of the chest wall shows no significant chest wall tenderness. No other significant abnormalities noted. HEART: [place] [employer], No PSH, 1/6 JACQUES aortic area, 1/6 benjamin systolic murmur mitral area, no rubs, no gallops. ABDOMEN: Soft, no significant tenderness appreciated, normoactive bowel sounds. No guarding, no rebound. No rigidity noted . No masses appreciated. EXTREMITIES: Pedal pulses are 1-2+, no calf tenderness noted. No clubbing or cyanosis. Negative pedal edema noted. Left arm pulses are noted to be somewhat weaker. NEUROLOGICAL: Focused neurological exam showed no significant neurologic deficit. Normal speech, no focal weakness appreciated. PSYCH: Normal mood, normal affect. Judgment and insight within normal limits. SKIN: No significant ecchymosis, rash, ulcerations or signs of pruritus noted. MUSCULOSKELETAL EXAM: No significant joint swelling noted. Results Laboratory Results: 07/10/17 07/10/17 13:30 18:36 Troponin I < 0.012 < 0.012 EKG Comments: Sinus rhythm, no acute ST-T wave changes noted. Impressions: Chest X-Ray 07/10/17 05:59 IMPRESSION: 1. No acute pulmonary process identified. Assessment & Plan - Diagnosis (1) Chest pain, rule out acute myocardial infarction Is this a current diagnosis for this admission?: Yes (2) GERD (gastroesophageal reflux disease) Qualifiers: Esophagitis presence: esophagitis presence not specified Qualified Code(s) : K21.9 - Gastro-esophageal reflux disease without esophagitis Is this a current diagnosis for this admission?: Yes (3) Hypertension Qualifiers: Hypertension type: essential hypertension Qualified Code(s): I10 - Essential (primary) hypertension Is this a current diagnosis for this admission?: Yes (4) Coronary artery disease Qualifiers: Coronary Disease-Associated Artery/Lesion type: [place] artery [place] vs. transplanted heart: [place] heart Associated angina: angina presence unspecified Qualified Code(s): I25.10 - Atherosclerotic heart disease of [place] coronary artery without angina pectoris Is this a current diagnosis for this admission?: Yes (6) Chest pain Qualifiers: Chest pain type: unspecified Qualified Code(s): R07.9 - Chest pain, unspecified Is this a current diagnosis for this admission?: Yes (7) Peripheral vascular disease Is this a current diagnosis for this admission?: Yes - Notes Notes: Chest pain: Patient has some typical and atypical features of chest pain. Cardiac enzymes so far has been negative. Electrocardiogram did not show any definitive ST segment changes. Multiple differential diagnoses exist in this patient. In descending order of probability this includes underlying coronary artery disease, gastroesophageal reflux, musculoskeletal pain, referred pain from elsewhere, anxiety panic disorder etc.Patient has significant cardiac risk factors, which indicates that there is a intermediate probability of chest discomfort coming from underlying CAD. Feel that it would need to be evaluated further. Discussed evaluation to assess this. In this regard risk benefits of nuclear stress test and other alternative processes were discussed in detail. The patient prefers to undergo nuclear stress test. The small risk of radiation , myocardial infarction, , cardiac arrhythmias, respiratory distress etc. were discussed. Patient understood the risks and gave informed consent. Nuclear stress test was therefore scheduled. For risk evaluation, patient is also being scheduled for a 2-D echocardiogram. Patient questions were answered. Gastroesophageal reflux disease: Continue proton pump inhibitor. May consider doubling the dose. Hypertension: Blood pressure goal should be 135/85 in this lady. Better medications of beta blockers, angiotensin receptor blockers/SEPIDEH inhibitor in this patient. Coronary artery disease: To be evaluated further with a nuclear stress test and 2D echocardiogram. Continue dual antiplatelet therapy. Tobacco abuse: Patient has history of chronic smoking. Discussed detrimental effect of chronic smoking including worsening COPD, increased risk of cardiovascular events, cerebrovascular events, cancer and multiple other side effects of smoking. The benefits of smoking cessation discussed. Patient unwilling to give acommitment to quit. Peripheral vascular disease: Patient describes carotid artery stenosis and also left subclavian stenosis. It may be worthwhile to consider working this patient up for any autoimmune disease/hypercoagulable disorder etc. - Time Time Spent: 30 to 50 Minutes - CODE STATUS was discussed, patient remains full code. Surrogate decision-maker unchanged. Multiple medical problems were addressed. More than 50% of the time spent coordinating care, discussing management plans with involved caregivers. Management plans discussed with involved personnels. Medical decision making was of moderate to high complexity , patient's has multiple comorbidities. Medications reviewed and adjusted accordingly: Yes
[2017-07-10 21:22] LABS: CHOLESTEROL 164.18 mg/dL (0-200); TRIGLYCERIDES 239 mg/dL (<150)
[2017-07-10 21:33] LABS: DIRECT LDL 113 mg/dL (<100)
[2017-07-10 21:41] LABS: VLDL CHOLESTEROL 47.8 mg/dL (10-31)
[2017-07-10] MEDS ORDERED: ATORVASTATIN CALCIUM 20 MG TABLET PO SCH (22:00)
[2017-07-11 07:55] LABS: ABSOLUTE EOSINOPHILS # (AUTO) 0.4 10^3/uL (0.0-0.6); ABSOLUTE LYMPHOCYTES (AUTO) 2.2 10^3/uL (0.5-4.7); ABSOLUTE MONOCYTES (AUTO) 0.8 10^3/uL (0.1-1.4); ABSOLUTE NEUT (AUTO) 4.8 10^3/uL (1.7-8.2); BASOPHILS % (AUTO) 0.6 % (0-2); EOSINOPHILS % (AUTO) 4.5 % (0-6); HEMATOCRIT 37.2 % (36.0-47.0); HEMOGLOBIN 12.2 g/dL (12.0-15.5); LYMPHOCYTES % (AUTO) 26.9 % (13-45); MEAN CORPUSCULAR HEMOGLOBIN 27.4 pg (27.0-33.4); MEAN CORPUSCULAR HGB CONC 32.8 g/dL (32.0-36.0); MEAN CORPUSCULAR VOLUME 84 fl (80-97); MONOCYTES % (AUTO) 9.6 % (3-13); PLATELET COUNT 294 10^3/uL (150-450); RED BLOOD COUNT 4.44 10^6/uL (3.72-5.28); RED CELL DISTRIBUTION WIDTH 15.5 % (11.5-14.0); SEGMENTED NEUTROPHILS % (AUTO) 58.4 % (42-78); TOTAL CELLS COUNTED % (AUTO) 100 %; WHITE BLOOD COUNT 8.3 10^3/uL (4.0-10.5)
[2017-07-11 08:06] LABS: ANION GAP 12 (5-19); BLOOD UREA NITROGEN 28 mg/dL (7-20); CALCIUM 9.4 mg/dL (8.4-10.2); CARBON DIOXIDE 27 mmol/L (22-30); CHLORIDE 103 mmol/L (98-107); GLUCOSE 99 mg/dL (75-110); PHOSPHORUS 4.8 mg/dL (2.5-4.5); POTASSIUM 4.6 mmol/L (3.6-5.0); SODIUM 141.5 mmol/L (137-145)
[2017-07-11] MEDS ORDERED: CLOPIDOGREL BISULFATE 75 MG TABLET PO SCH (10:00)
[2017-07-11] MEDS ORDERED: PANTOPRAZOLE SODIUM 40 MG VIAL IV SCH (10:00)
[2017-07-11] MEDS ORDERED: NICOTINE 21 MG/24 HR PATCH.TD24 TD SCH (10:00)
[2017-07-11] MEDS: LISINOPRIL 10 MG TABLET PO SCH (11:40)
[2017-07-11] MEDS: ASPIRIN 81 MG TABLET, ENT COATED PO SCH (11:41)
[2017-07-11] MEDS: METOPROLOL SUCCINATE 25 MG TAB.SR.24H PO SCH (11:41)
[2017-07-11] MEDS: HYDROCHLOROTHIAZIDE 12.5 MG CAPSULE PO SCH (11:42)
--- NOTE | 2017-07-11 12:05 | XCELERA REPORT ---
[address] [address] Transthoracic Echocardiogram Report Name: KATERINE FALL Age: 52 yrs Gender: Female : 1965 Patient Status: Inpatient Patient Location: [address] [place] [address] Study Date: 07/11/2017 08:46 AM Height: 64 in Weight: 192 lb BSA: 1.9 m2 Procedure: A complete two-dimensional transthoracic echocardiogram was performed (2D, M-mode, spectral and color flow Doppler). The study was technically difficult with many images being suboptimal in quality. Reason For Study: chest pain workup, PMH MS and stent x 1 Ordering Physician: CANDIS PAEZ Performed By: Beena Pang Interpretation Summary The left ventricle has normal cavity size with globally normal systolic function. Estimated left ventricular ejection fraction is 55%. Doppler measurements suggest pseudonormalized left ventricular relaxation, which is associated with grade II/IV or mild to moderate diastolic dysfunction There is borderline concentric left ventricular hypertrophy. The left ventricle is grossly normal size. No regional wall motion abnormalities noted. The right ventricular systolic function is normal. The right atrium is normal in size The left atrial size is normal. There is a trace amount of mitral regurgitation There is no mitral valve stenosis. There is no aortic valve stenosis There is a trace amount of aortic regurgitation No tricuspid regurgitation. There is no tricuspid stenosis. The aortic root is not well visualized. The inferior vena cava was not well visualized There is no pericardial effusion. MMode/2D Measurements & Calculations RVDd: 2.6 cm LVIDd: 4.2 cm FS: 36.8 % Ao root diam: 2.5 cm IVSd: 1.0 cm LVIDs: 2.6 cm EDV(Teich): 78.1 ml LVPWd: 1.0 cm ESV(Teich): 25.7 ml Ao root area: 5.0 cm2 EF(Teich): 67.1 % LA dimension: 3.3 cm Doppler Measurements & Calculations MV E max ramiro: MV P1/2t max ramiro: Ao V2 max: LV V1 max P.4 cm/sec 80.9 cm/sec 186.0 cm/sec 3.6 mmHg MV A max ramiro: MV P1/2t: 72.5 msec Ao max PG: LV V1 max: 97.2 cm/sec 13.8 mmHg 94.3 cm/sec MV E/A: 0.84 MVA(P1/2t): 3.0 cm2 MV dec slope: 327.1 cm/sec2 PA V2 max: 95.3 cm/sec PA max P.6 mmHg Left Ventricle The left ventricle is grossly normal size. There is borderline concentric left ventricular hypertrophy. The left ventricle has normal cavity size with globally normal systolic function. Estimated left ventricular ejection fraction is 55%. Doppler measurements suggest pseudonormalized left ventricular relaxation, which is associated with grade II/IV or mild to moderate diastolic dysfunction. No regional wall motion abnormalities noted. Right Ventricle The right ventricle is grossly normal size. There is normal right ventricular wall thickness. The right ventricular systolic function is normal. Atria The right atrium is normal in size. The left atrial size is normal. Interarterial septum not well visualized and not well dopplered. Cannot comment on ASD/PFO presence. Mitral Valve The mitral valve is grossly normal. There is no mitral valve stenosis. There is a trace amount of mitral regurgitation. Aortic Valve The aortic valve is not well visualized secondary to technical limitations. There is no aortic valve stenosis. There is a trace amount of aortic regurgitation. Tricuspid Valve The tricuspid valve is not well visualized, but is grossly normal. There is no tricuspid stenosis. No tricuspid regurgitation. Pulmonic Valve The pulmonic valve is not well visualized. Great Vessels The aortic root is not well visualized. The inferior vena cava was not well visualized. Effusions There is no pericardial effusion. : CANDIS PAEZ Shyamal
[2017-07-11] MEDS ORDERED: AMINOPHYLLINE INJ/PF 250 MG/10 ML SDV IV ONE (13:59)
[2017-07-11] MEDS ORDERED: REGADENOSON INJ 0.4 MG/5 ML DISP.SYRIN IV ONE (13:59)
[2017-07-11 17:05] VITALS: BP 125/45
--- NOTE | 2017-07-11 17:30 | DRAGON STRESS TEST REPORT ---
INTRAVENOUS LEXISCAN CARDIOLITE STRESS TEST USING SINGLE PHOTON EMMISION COMPUTERIZED TOMOGRAPHIC. DATE OF PROCEDURE: July 11, 2017, INDICATION : Chest pain CARDIAC RISK FACTORS: Hypertension, dyslipidemia, tobacco abuse RESTING EKG: Sinus rhythm without any baseline ST-T wave changes STRESS EKG: No significant changes noted with LexiScan bolus REASON FOR TERMINATION: Protocol. PROCEDURE REPORT: Baseline heart rate 77 beats per minute with blood pressure of 179/71. Patient had no significant complaints. Heart rate at 2 minutes post bolus 103 with a blood pressure of 187/76. 3 minutes post bolus heart rate 98 with blood pressure of 195/74. No significant EKG changes were noted. Patient had no significant complaints during the procedure or postprocedure. Patient injected with Aminophyllin 75 mg at 3 minutes or later after Lexiscan bolus. CONCLUSIONS: Normal EKG and hemodynamic response to IV LexiScan. NUCLEAR DATA: At rest the patient was given 13.47 millicuries of technetium 99 sestamibi injected intravenously. As per protocol rest gated SPECT images were obtained. On day of stress test, the patient was given intravenous LexiScan at a dose of 0.4 mg in 5 mL intravenously, followed by flush with normal saline. Subsequently the stress dose of 41.5 millicuries of technetium 99 sestamibi was injected intravenously. As per protocol stress gated images were obtained. NUCLEAR INTERPRETATION: Both raw and processed data were used for interpretation. Visual, qualitative, computer-generated quantitative data was used. There was good myocardial uptake of technetium compound. Motion artifact and soft tissue attenuations were noted. Increased visceral uptake was noted. Increased breast attenuation artifact was noted. No definitive areas of transient perfusion defect noted, No definitive areas of fixed perfusion defect or scars noted. EKG gated imaging showed LV EF at 67 %, rest and stress gated EF similar visually. T. I D. ratio was 1.20. Lung heart ratio noted to be within normal limits 0.39. No significant extracardiac and abnormal radiotracer activities were noted. RV free wall uptake was noted to be WNL. IMPRESSION: Also refer to comments under nuclear interpretation. Also test results needs to be interpreted in the context of pretest probability. 1. No definitive areas of transient perfusion defect noted. 2. There is no definitive scintigraphic evidence of myocardial infarction/scar. 3. EKG gated imaging shows left ventricular ejection fraction of approx. 67 %. 4. Clinical correlation requested as occasionally single vessel disease or balanced ischemia could be missed. In approximately 10% of the cases Lexiscan may not cause adequate vasodilatory stress. RECOMMENDATIONS: Aggressive risk factor modification and medical management. Further evaluation may be needed if continued symptoms or other high risk indicators are noted on clinical evaluation. Close cardiology follow-up is also recommended. Clinical correlation with echocardiogram derived ejection fraction. Inability to exercise by itself can lead to increased cardiovascular event risks. Consider cardiology consultation and or follow-up if clinically indicated. 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 VINNIE
--- NOTE | 2017-07-12 16:03 | PDOC PROGRESS REPORT ---
Subjective Progress Note for:: 07/11/17 Subjective:: Patient was seen yesterday multiple times but somehow dictation got missed. Patient was also seen prior to discharge and stress test results were discussed. Patient seems to be doing better improvement. Pt is denying any chest arm or neck discomfort. Patient denying any PND, orthopnea. Patient denied any sustained palpitations, dizziness, syncope, near syncope. Patient denying any fever chills. Patient denying any other significant discomfort. Nuclear stress test procedure and risk benefits were discussed. Patient did complete nuclear stress test without any complications. Patient is maintaining sinus rhythm. Review of systems: Rest review of systems negative. Medications: Medications have been reviewed. Reason For Visit: CHEST PAIN (UNSPECIFIED) Physical Exam Vital Signs: Temp Pulse Resp BP Pulse Ox 97.3 F 87 17 125/45 L 97 07/11/17 17:03 07/11/17 17:03 07/11/17 17:03 07/11/17 17:03 07/11/17 17:03 Intake & Output 07/11/17 07/12/17 07/13/17 06:59 06:59 06:59 Intake Total 904 484 Output Total 1050 400 Balance -146 84 Weight 85.6 kg Exam: GENERAL: well-nourished and in no acute distress. Alert and oriented x3 HEAD: Atraumatic, normocephalic. EYES: Pupils equal round and reactive to light, extraocular movements intact, sclera anicteric, conjunctiva are normal. ENT: TMs normal, nares patent, oropharynx clear without exudates. Moist mucous membranes. No oral ulcerations or bleeding gums noted NECK: supple without lymphadenopathy. Trachea is central. No cervical or axillary lymphadenopathy noted. Carotids are 2+, JVD WNL LUNGS: Respiration seems nonlabored, no significant accessory muscle action noted. Breath sounds clear to auscultation bilaterally and equal noted. No wheezes rales or rhonchi noted. No significant dullness noted on percussion. CHEST: Palpation of the chest wall shows no significant chest wall tenderness. No other significant abnormalities noted. 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 ABDOMEN: Soft, no significant tenderness appreciated, normoactive bowel sounds. No guarding, no rebound. No rigidity noted . No masses appreciated. EXTREMITIES: Pedal pulses are 1-2+, no calf tenderness noted. No clubbing or cyanosis. Negative pedal edema noted NEUROLOGICAL: Focused neurological exam showed no significant neurologic deficit. Normal speech, no focal weakness appreciated. PSYCH: Normal mood, normal affect. Judgment and insight within normal limits. SKIN: No significant ecchymosis, rash, ulcerations or signs of pruritus noted. MUSCULOSKELETAL EXAM: No significant joint swelling noted. Results Laboratory Results: 07/11/17 07:01 07/11/17 07:01 07/10/17 07/10/17 13:30 18:36 Troponin I < 0.012 < 0.012 EKG Comments: Telemetry strips shows sinus rhythm without any sustained tacky or bradycardia arrhythmias. Impressions: Chest X-Ray 07/10/17 05:59 IMPRESSION: 1. No acute pulmonary process identified. Assessment & Plan - Diagnosis (1) Chest pain, rule out acute myocardial infarction Is this a current diagnosis for this admission?: Yes (2) GERD (gastroesophageal reflux disease) Qualifiers: Esophagitis presence: esophagitis presence not specified Qualified Code(s) : K21.9 - Gastro-esophageal reflux disease without esophagitis Is this a current diagnosis for this admission?: Yes (3) Hypertension Qualifiers: Hypertension type: essential hypertension Qualified Code(s): I10 - Essential (primary) hypertension Is this a current diagnosis for this admission?: Yes (4) Coronary artery disease Qualifiers: Coronary Disease-Associated Artery/Lesion type: [place] artery Elim [place] vs. transplanted heart: [place] heart Associated angina: angina presence unspecified Qualified Code(s): I25.10 - Atherosclerotic heart disease of [place] coronary artery without angina pectoris Is this a current diagnosis for this admission?: Yes (6) Chest pain Qualifiers: Chest pain type: unspecified Qualified Code(s): R07.9 - Chest pain, unspecified Is this a current diagnosis for this admission?: Yes (7) Peripheral vascular disease Is this a current diagnosis for this admission?: Yes - Notes Notes: Patient claims chest pain is improved. This was evaluated with a nuclear stress test. Nuclear stress test was negative for any significant areas of ischemia or any significant areas of scar. The nuclear stress test is felt to be relatively low risk. Patient informed that occasionally single-vessel disease and balanced ischemia could be missed. Patient advised aggressive risk factor modification and medical therapy. Patient informed that further evaluation may become necessary if symptoms worsens or there is a development of new symptoms indicative of angina or angina equivalent symptom. Gastroesophageal reflux disease: Continue proton pump inhibitor. Recommend double dose proton pump inhibitor. Hypertension: Blood pressure goal should be 135/85 in this lady. Better medications of beta blockers, angiotensin receptor blockers/SEPIDEH inhibitor in this patient. Coronary artery disease: Nuclear stress test was noted to be relatively low risk. 2D echo results discussed. Continue dual antiplatelet therapy. Tobacco abuse: Patient has history of chronic smoking. Discussed detrimental effect of chronic smoking including worsening COPD, increased risk of cardiovascular events, cerebrovascular events, cancer and multiple other side effects of smoking. The benefits of smoking cessation discussed. Peripheral vascular disease: Patient describes carotid artery stenosis and also left subclavian stenosis. It may be worthwhile to consider working this patient up for any autoimmune disease/hypercoagulable disorder etc. - Time Time with patient: Greater than 35 minutes - Patient was seen multiple times. Total time exceeds 40 minutes. In the morning nuclear stress test procedure, risks benefits, alternatives were discussed. Patient seen during the stress test. Patient also seen after stress test when results were discussed with the patient in detail. Patient's questions were answered. Nuclear stress test results were discussed with the patient. Patient was informed that no definitive evidence of pharmacologic stress-induced ischemia noted. No definite fixed defects were noted. Patient informed that occasionally significant single vessel disease or balanced ischemia could be missed. However based on the current study results, would recommend aggressive risk factor modification and medical therapy. It may also be worthwhile to consider evaluation or empiric management of other causes of chest pain. Should no other cause be found and if persistent in having chest pain, then cardiac catheterization should be considered. Right now, recommendations are for aggressive risk factor modification and medical management. CODE STATUS was discussed, patient remains full code. More than 50% of the time spent coordinating care, discussing management plans with involved caregivers. Management plans discussed with involved personnels. Medical decision making was of moderate to high complexity, patient's has multiple comorbidities. 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 Happy to provide him an information. Medications reviewed and adjusted accordingly: Yes
== END 2017-07-11 17:28 | disposition home or self-care (01) ==
LOC: ER 04:43 → EH 08:30 → 5 11:21
PROVIDERS: ADMIT Emergency Medicine; ATTEND Emergency Medicine
DX: R07.89 Other chest pain (principal); K21.9 Gastro-esophageal reflux disease without esophagitis; I10 Essential (primary) hypertension; I25.10 Atherosclerotic heart disease of native coronary artery without angina pectoris; I73.9 Peripheral vascular disease, unspecified; R01.1 Cardiac murmur, unspecified; F17.210 Nicotine dependence, cigarettes, uncomplicated; R61 Generalized hyperhidrosis; I65.23 Occlusion and stenosis of bilateral carotid arteries; E78.5 Hyperlipidemia, unspecified; I25.2 Old myocardial infarction; Z79.899 Other long term (current) drug therapy; Z79.82 Long term (current) use of aspirin; Z79.02 Long term (current) use of antithrombotics/antiplatelets; Z95.5 Presence of coronary angioplasty implant and graft; Z98.890 Other specified postprocedural states; Z82.49 Family history of ischemic heart disease and other diseases of the circulatory system
CPT/HCPCS: 93005; 99285; 36415 ×2; 82553; 82550; 84100; 85025 ×2; 80048; 80053; 84484; 80061; 93306; 93017; 71045; 78452; 93010; G0378 ×3; A9500; J2785; S0119; J3490 ×3; S0164; J0280; Q9969

== ENCOUNTER 2017-08-23 22:10 | Emergency (ER) | payer SELFPAY ==
--- NOTE | 2017-08-23 23:11 | ER Document Report ---
ED Blood Pressure Problem - General Chief Complaint: High Blood Pressure Stated Complaint: BLOOD PRESSURE PROBLEM Time Seen by Provider: 08/23/17 22:46 Notes: Patient is a 52 year old female that comes to the ED for chief complaint of high blood pressure concerns. Patient states she is compliant with her medications, occasionally she will take an extra blood pressure medication if it goes high, she is on lisinopril 20 mg, HCTZ 12.5 mg, and just got raised on her metoprolol succinate from 12.5 mg twice a day to 25 mg BID. She states she had a headache earlier but denies any now, she denies any chest pain, she denies any other complaints. States her has been checking her blood pressure regularly and earlier was greater than 180 systolic so she came to the emergency department. TRAVEL OUTSIDE OF THE [place] IN LAST 30 DAYS: No - Related Data Allergies/Adverse Reactions: tetracycline [Tetracycline] Allergy (Verified 10/02/15 02:23) Past Medical History - General Information source: Patient - Social History Smoking Status: Current Every Day Smoker Chew tobacco use (# tins/day): No Smoking Education Provided: Yes - <3 min Frequency of alcohol use: None Drug Abuse: None Lives with: Family Family History: CAD - both parents, Hypertension, Malignancy Patient has suicidal ideation: No Patient has homicidal ideation: No - Past Medical History Cardiac Medical History: Reports: Hx Coronary Artery Disease, Hx Heart Attack, Hx Hypercholesterolemia, Hx Hypertension Denies: Hx Congestive Heart Failure Pulmonary Medical History: Denies: Hx Asthma, Hx Bronchitis, Hx COPD, Hx Pneumonia, Hx Tuberculosis Neurological Medical History: Reports: Hx Seizures - 09/2015 seizure one time while here at the hospital Endocrine Medical History: Denies: Hx Diabetes Mellitus Type 2 Renal/ Medical History: Denies: Hx End Stage Renal Disease, Hx Kidney Stones, Hx Peritoneal Dialysis GI Medical History: Reports: Hx Gastroesophageal Reflux Disease, Hx Ulcer. Denies: Hx Cirrhosis Musculoskeltal Medical History: Reports Hx Arthritis, Denies Hx Multiple Sclerosis Psychiatric Medical History: Denies: Hx Bipolar Disorder, Hx Depression, Hx Schizophrenia Past Surgical History: Reports: Hx Cardiac Catheterization, Hx Section , Hx Coronary Stent - x1; June 2015, Hx Hysterectomy, Other - R BREAST LUMPECTOMY; B/L ANKLE REPAIR S/P FRACTURE - Immunizations Immunizations up to date: No Hx Diphtheria, Pertussis, Tetanus Vaccination: Yes Review of Systems - Review of Systems Constitutional: No symptoms reported EENT: No symptoms reported Cardiovascular: No symptoms reported Respiratory: No symptoms reported Gastrointestinal: No symptoms reported Genitourinary: No symptoms reported Female Genitourinary: No symptoms reported Musculoskeletal: No symptoms reported Skin: No symptoms reported Hematologic/Lymphatic: No symptoms reported Neurological/Psychological: See HPI Physical Exam - Vital signs Vitals: Temp Pulse Resp BP Pulse Ox 98.3 F 85 16 179/66 H 96 08/23/17 22:23 08/23/17 22:23 08/23/17 22:23 08/23/17 22:23 08/23/17 22:23 Interpretation: Normal - General General appearance: Appears well, Alert - HEENT Head: Normocephalic, Atraumatic Eyes: Normal Pupils: PERRL - Respiratory Respiratory status: No respiratory distress Chest status: Nontender Breath sounds: Normal Chest palpation: Normal - Cardiovascular Rhythm: Regular Heart sounds: Normal auscultation Murmur: No - Abdominal Inspection: Normal Distension: No distension Bowel sounds: Normal Tenderness: Nontender Organomegaly: No organomegaly - Back Back: Normal, Nontender - Extremities General upper extremity: Normal inspection, Nontender, Normal color, Normal ROM , Normal temperature General lower extremity: Normal inspection, Nontender, Normal color, Normal ROM , Normal temperature, Normal weight bearing. No: Calvin's sign - Neurological Neuro grossly intact: Yes Cognition: Normal Orientation: AAOx4 [place] Coma Scale Eye Opening: Spontaneous [place] Coma Scale Verbal: Oriented [place] Coma Scale Motor: Obeys Commands Rajesh Coma Scale Total: 15 Speech: Normal Motor strength normal: LUE, RUE, LLE, RLE Sensory: Normal - Psychological Associated symptoms: Normal affect, Normal mood - Skin Skin Temperature: Warm Skin Moisture: Dry Skin Color: Normal Course - Re-evaluation Re-evalutation: EKG is unremarkable. Patient's neurological exam is normal. Patient with no current complaints. Blood pressure is elevated. However patient presents with asymptomatic hypertension, she is on medication, I did review her records of her blood pressure and there have been several days where she has completely normal blood pressures, some days they have some elevations, one day it was consistently elevated. Patient admits that the evening before the elevated day she ate [place] food. Suspect this was diet related. I discussed blood pressure treatment, recommendations, importance of smoking cessation. Answered questions to best of my ability. Patient states understanding with plan, however she does request that when her blood pressure gets very high that she have an alternative medication that she can take instead of her long-acting one. I did not recommend this, however patient persisted, agreed to give her clonidine with parameters but encouraged her to avoid this method. I did advise her to make sure it was elevated because low impression pressure too much can be dangerous. Giving only 0.1 mg dose. Discussed follow-up, return precautions in detail, patient and state satisfaction and agreement. - Vital Signs Vital signs: Temp Pulse Resp BP Pulse Ox 98.6 F 85 19 170/75 H 99 08/23/17 23:22 08/23/17 22:23 08/23/17 23:02 08/23/17 23:02 08/23/17 23:02 Discharge - Discharge Clinical Impression: Hypertension Qualifiers: Hypertension type: unspecified Qualified Code(s): I10 - Essential (primary) hypertension Condition: Stable Disposition: HOME, SELF-CARE Additional Instructions: Your blood pressure was elevated tonight. Recommendation is to continue your current regimen taking the 20 mg of lisinopril daily, hydrochlorothiazide 12.5 daily, taking the new dose of elevated metoprolol succinate 25 mg, and following up with primary care. You have been provided with clonidine to take with blood pressures for greater than 180, however general recommendation is that you avoid doing this, reduce salt in your diet, stop smoking, and follow- up with primary care. Return to the emergency department for any concerning symptoms including severe headache, vomiting, chest pain, numbness on either side of your body, or any other concerning symptoms. Prescriptions: Clonidine HCl 0.1 mg PO ASDIR PRN #20 tablet PRN Reason:
[2017-08-23 23:30] VITALS: BP 170/75
--- NOTE | 2017-08-24 09:57 | EKG REPORT ---
SEVERITY:- NORMAL ECG - SINUS RHYTHM : Confirmed by: Noble Haines 24-Aug-2017 09:56:09
== END 2017-08-23 23:30 | disposition home or self-care (01) ==
LOC: ER 22:10
DX: I10 Essential (primary) hypertension (principal); Z79.899 Other long term (current) drug therapy; F17.200 Nicotine dependence, unspecified, uncomplicated; I25.10 Atherosclerotic heart disease of native coronary artery without angina pectoris; I25.2 Old myocardial infarction
CPT/HCPCS: 93005; 93010; 99283

== ENCOUNTER 2017-09-01 18:29 | Emergency (ER) | payer SELFPAY ==
--- NOTE | 2017-09-01 19:42 | ER Document Report ---
ED Medical Screen (RME) - General Chief Complaint: Nausea/Vomiting/Diarrhea Stated Complaint: VOMITING/HEADACHE Time Seen by Provider: 09/01/17 19:42 Notes: Patient states since last night she has had nausea vomiting headache and diarrhea. TRAVEL OUTSIDE OF THE [place] IN LAST 30 DAYS: No - Related Data Allergies/Adverse Reactions: tetracycline [Tetracycline] Allergy (Verified 10/02/15 02:23) Past Medical History - Social History Frequency of alcohol use: None - Past Medical History Cardiac Medical History: Reports: Hx Coronary Artery Disease, Hx Heart Attack, Hx Hypercholesterolemia, Hx Hypertension Denies: Hx Congestive Heart Failure Pulmonary Medical History: Denies: Hx Asthma, Hx Bronchitis, Hx COPD, Hx Pneumonia, Hx Tuberculosis Neurological Medical History: Reports: Hx Seizures - 09/2015 seizure one time while here at the hospital Endocrine Medical History: Denies: Hx Diabetes Mellitus Type 2 Renal/ Medical History: Denies: Hx End Stage Renal Disease, Hx Kidney Stones, Hx Peritoneal Dialysis GI Medical History: Reports: Hx Gastroesophageal Reflux Disease, Hx Ulcer. Denies: Hx Cirrhosis Musculoskeltal Medical History: Reports Hx Arthritis, Denies Hx Multiple Sclerosis Psychiatric Medical History: Denies: Hx Bipolar Disorder, Hx Depression, Hx Schizophrenia Past Surgical History: Reports: Hx Cardiac Catheterization, Hx Section , Hx Coronary Stent - x1; June 2015, Hx Hysterectomy, Other - R BREAST LUMPECTOMY; B/L ANKLE REPAIR S/P FRACTURE - Immunizations Immunizations up to date: No Hx Diphtheria, Pertussis, Tetanus Vaccination: Yes History of Influenza Vaccine for 02/2017 - 07/2017 Season: Refused Physical Exam - Vital signs Vitals: Temp Pulse Resp BP Pulse Ox 98.4 F 96 16 150/75 H 97 09/01/17 18:41 09/01/17 18:41 09/01/17 18:41 09/01/17 18:41 09/01/17 18:41 Course - Vital Signs Vital signs: Temp Pulse Resp BP Pulse Ox 98.4 F 96 16 150/75 H 97 09/01/17 18:41 09/01/17 18:41 09/01/17 18:41 09/01/17 18:41 09/01/17 18:41
[2017-09-01 20:07] LABS: ABSOLUTE EOSINOPHILS # (AUTO) 0.4 10^3/uL (0.0-0.6); ABSOLUTE LYMPHOCYTES (AUTO) 2.8 10^3/uL (0.5-4.7); ABSOLUTE MONOCYTES (AUTO) 0.8 10^3/uL (0.1-1.4); ABSOLUTE NEUT (AUTO) 5.6 10^3/uL (1.7-8.2); BASOPHILS % (AUTO) 0.2 % (0-2); EOSINOPHILS % (AUTO) 4.3 % (0-6); HEMATOCRIT 39.8 % (36.0-47.0); HEMOGLOBIN 13.4 g/dL (12.0-15.5); LYMPHOCYTES % (AUTO) 28.8 % (13-45); MEAN CORPUSCULAR HEMOGLOBIN 29.2 pg (27.0-33.4); MEAN CORPUSCULAR HGB CONC 33.6 g/dL (32.0-36.0); MEAN CORPUSCULAR VOLUME 87 fl (80-97); MONOCYTES % (AUTO) 8.2 % (3-13); PLATELET COUNT 314 10^3/uL (150-450); RED BLOOD COUNT 4.58 10^6/uL (3.72-5.28); RED CELL DISTRIBUTION WIDTH 18.4 % (11.5-14.0); SEGMENTED NEUTROPHILS % (AUTO) 58.5 % (42-78); TOTAL CELLS COUNTED % (AUTO) 100 %; WHITE BLOOD COUNT 9.6 10^3/uL (4.0-10.5)
[2017-09-01 20:10] LABS: APPEARANCE,URINE SLIGHTLY-CLOUDY; BILIRUBIN,URINE NEGATIVE (NEGATIVE); COLOR,URINE YELLOW; GLUCOSE, URINE NEGATIVE (NEGATIVE); KETONES,URINE NEGATIVE (NEGATIVE); LEUKOCYTE ESTERASE,URINE NEGATIVE (NEGATIVE); NITRITE,URINE NEGATIVE (NEGATIVE); PROTEIN,URINE NEGATIVE (NEGATIVE); UROBILINOGEN,URINE NEGATIVE mg/dL (<2.0)
[2017-09-01 20:25] LABS: ALANINE AMINOTRANSFERASE 36 U/L (9-52); ALBUMIN 4.7 g/dL (3.5-5.0); ALKALINE PHOSPHATASE 131 U/L (38-126); ANION GAP 14 (5-19); ASPARTATE AMINO TRANSFERASE 21 U/L (14-36); BILIRUBIN,DIRECT 0.2 mg/dL (0.0-0.4); BILIRUBIN,TOTAL 0.2 mg/dL (0.2-1.3); BLOOD UREA NITROGEN 25 mg/dL (7-20); CALCIUM 9.7 mg/dL (8.4-10.2); CARBON DIOXIDE 27 mmol/L (22-30); CHLORIDE 101 mmol/L (98-107); GLUCOSE 105 mg/dL (75-110); SODIUM 142.3 mmol/L (137-145); TOTAL PROTEIN 7.6 g/dL (6.3-8.2)
[2017-09-01] MEDS ORDERED: METOCLOPRAMIDE HCL INJ/PF 10 MG/2 ML SDV IV ONE (20:47)
[2017-09-01] MEDS ORDERED: NORMAL SALINE 1000 ML 1,000 ML IV ONE (20:47)
[2017-09-01] MEDS ORDERED: GABAPENTIN 300 MG CAPSULE PO ONE (22:03)
--- NOTE | 2017-09-01 22:06 | ER Document Report ---
ED General - General Chief Complaint: Nausea/Vomiting/Diarrhea Stated Complaint: VOMITING/HEADACHE Time Seen by Provider: 09/01/17 19:42 Notes: Patient is a 52-year-old female with a past medical history of restless leg syndrome who presents with 12 hours of nausea, vomiting and diarrhea. Patient states that she woke up from sleep with vomiting had approximate 5-6 episodes of vomiting since that time and has had persistent diarrhea. She notes that her vomiting has overall resolved and she has been a to tolerate oral intake for approximately the last 2-3 hours. She notes an associated generalized, intermittent abdominal cramping that is overall resolved at this time. She denies any history of similar symptoms in the past. No known sick contacts. She denies any fever, chest pain, shortness of breath, headache, neck pain or weakness. She has not seen her primary care doctor regarding today's concerns. TRAVEL OUTSIDE OF THE [place] IN LAST 30 DAYS: No - Related Data Allergies/Adverse Reactions: tetracycline [Tetracycline] Allergy (Verified 10/02/15 02:23) Past Medical History - General Information source: Patient - Social History Smoking Status: Current Every Day Smoker Frequency of alcohol use: None Drug Abuse: None Lives with: Spouse/Significant other Family History: CAD - both parents, Hypertension, Malignancy Patient has suicidal ideation: No Patient has homicidal ideation: No - Past Medical History Cardiac Medical History: Reports: Hx Coronary Artery Disease, Hx Heart Attack, Hx Hypercholesterolemia, Hx Hypertension Denies: Hx Congestive Heart Failure Pulmonary Medical History: Denies: Hx Asthma, Hx Bronchitis, Hx COPD, Hx Pneumonia, Hx Tuberculosis Neurological Medical History: Reports: Hx Seizures - 09/2015 seizure one time while here at the hospital Endocrine Medical History: Denies: Hx Diabetes Mellitus Type 2 Renal/ Medical History: Denies: Hx End Stage Renal Disease, Hx Kidney Stones, Hx Peritoneal Dialysis GI Medical History: Reports: Hx Gastroesophageal Reflux Disease, Hx Ulcer. Denies: Hx Cirrhosis Musculoskeltal Medical History: Reports Hx Arthritis, Denies Hx Multiple Sclerosis Psychiatric Medical History: Denies: Hx Bipolar Disorder, Hx Depression, Hx Schizophrenia Past Surgical History: Reports: Hx Cardiac Catheterization, Hx Section , Hx Coronary Stent - x1; June 2015, Hx Hysterectomy, Other - R BREAST LUMPECTOMY; B/L ANKLE REPAIR S/P FRACTURE - Immunizations Immunizations up to date: No Hx Diphtheria, Pertussis, Tetanus Vaccination: Yes Review of Systems - Review of Systems Notes: Constitutional: Negative for fever. HENT: Negative for sore throat. Eyes: Negative for visual changes. Cardiovascular: Negative for chest pain. Respiratory: Negative for shortness of breath. Gastrointestinal: Positive for abdominal cramping, vomiting and diarrhea Genitourinary: Negative for dysuria. Musculoskeletal: Negative for back pain. Skin: Negative for rash. Neurological: Negative for headaches, weakness or numbness. 10 point ROS negative except as marked above and in HPI. Physical Exam - Vital signs Vitals: Temp Pulse Resp BP Pulse Ox 98.4 F 96 16 150/75 H 97 09/01/17 18:41 09/01/17 18:41 09/01/17 18:41 09/01/17 18:41 09/01/17 18:41 Interpretation: Hypertensive Notes: PHYSICAL EXAMINATION: GENERAL: Well-appearing, well-nourished and in no acute distress. HEAD: Atraumatic, normocephalic. EYES: Pupils equal round and reactive to light, extraocular movements intact, sclera anicteric, conjunctiva are normal. ENT: nares patent, oropharynx clear without exudates. Moderately dry mucous membranes. NECK: Normal range of motion, supple without lymphadenopathy LUNGS: Breath sounds clear to auscultation bilaterally and equal. No wheezes rales or rhonchi. HEART: Regular rate and rhythm without murmurs ABDOMEN: Soft, nontender, normoactive bowel sounds. No guarding, no rebound. No masses appreciated. EXTREMITIES: Normal range of motion, no pitting or edema. No cyanosis. NEUROLOGICAL: No focal neurological deficits. Moves all extremities spontaneously and on command. PSYCH: Normal mood, normal affect. SKIN: Warm, Dry, normal turgor, no rashes or lesions noted. Course - Re-evaluation Re-evalutation: 09/01/17 22:03 Presentation of an overall well-appearing patient in no acute distress with complaints of nausea, vomiting, diarrhea. This is consistent with likely viral gastroenteritis. Patient has no abdominal tenderness on exam and specifically no tenderness in the RLQ, LLQ, RUQ. Overall well hydrated on exam. Able to tolerate oral intake here in the emergency department. Low clinical suspicion for any acute life-threatening etiology based on exam and history including acute cholecystitis, SBO, appendicitis, nephrolithiasis, or pylonephritis. CMP without evidence of acute hepatitis or significant dehydration. At this time will discharge with return precautions and follow-up recommendations. Verbal discharge instructions given a the bedside and opportunity for questions given. Medication warnings reviewed. Patient is in agreement with this plan and has verbalized understanding of return precautions and the need for primary care follow-up in the next 24-72 hours. Patient will also be started on gabapentin 600 mg nightly for restless leg syndrome as she was requesting a refill of her tramadol. I have informed her that I do not prescribe controlled substances for such conditions and that there is no strong evidence for the use of tramadol in restless leg syndrome. She has agreed to start a dose of 600 mg at night of gabapentin. - Vital Signs Vital signs: Temp Pulse Resp BP Pulse Ox 97.8 F 88 18 160/72 H 97 09/01/17 22:23 09/01/17 22:23 09/01/17 22:23 09/01/17 22:23 09/01/17 22:23 - Laboratory Result Diagrams: 09/01/17 19:50 09/01/17 19:50 Laboratory results interpreted by me: 09/01/17 09/01/17 09/01/17 19:50 19:50 19:50 RDW 18.4 H BUN 25 H Est GFR (Non-Af Amer) 50 L Alkaline Phosphatase 131 H Urine Blood SMALL H Discharge - Discharge Clinical Impression: Nausea vomiting and diarrhea, Dehydration, Restless leg syndrome Condition: Good Disposition: HOME, SELF-CARE Additional Instructions: Your symptoms are likely due to a viral illness and should resolve in the next several days. Continue to stay hydrated with plenty of solution such as Gatorade or Pedialyte. Please return if you develop severe abdominal pain, pass out, become unable to tolerate any oral fluids for 12 more hours, or any other symptoms that are concerning to you. You may take gabapentin 600 mg nightly as needed for restless leg syndrome. Prescriptions: Gabapentin 600 mg PO QHS #30 tablet
[2017-09-01 22:38] VITALS: BP 160/72
== END 2017-09-01 22:40 | disposition home or self-care (01) ==
LOC: ER 18:29
DX: E86.0 Dehydration (principal); R11.2 Nausea with vomiting, unspecified; G25.81 Restless legs syndrome; R19.7 Diarrhea, unspecified; F17.200 Nicotine dependence, unspecified, uncomplicated; I25.10 Atherosclerotic heart disease of native coronary artery without angina pectoris; I25.2 Old myocardial infarction; Z90.710 Acquired absence of both cervix and uterus
CPT/HCPCS: 99284; 96361; 96374; 36415; 85025; 80053; 81001; J2765; J7030

== ENCOUNTER 2017-09-15 22:55 | Emergency (ER) | payer SELFPAY ==
[2017-09-16] MEDS ORDERED: ASPIRIN 81 MG TABLET, CHEWABLE PO ONE (00:49)
[2017-09-16] MEDS ORDERED: FAMOTIDINE 20 MG TABLET PO ONE (00:50)
--- NOTE | 2017-09-16 01:01 | ER Document Report ---
ED Cardiac - General Chief Complaint: Chest Pain Stated Complaint: CHEST PAIN Time Seen by Provider: 09/16/17 00:37 Notes: Patient is a 52 year old female that comes to the ED for chief complaint of chest pain, she states it has been constant for 3 days, she states she feels like she "just needs to belch and it would go away". She is taking zantac and nexium, was told she has esophageal ulcers on a previous EGD, has a followup with GI within the next month. Patient also has a history of [place] 2 years ago, she had a stent, she follows with [facility]. She had a negative stress test 1 month ago. She denies shortness of breath, nausea or vomiting, she can still eat, reports normal bowel movements, denies fever, denies cough. Other past medical history includes hypertension, she is on metoprolol, lisinopril, HCTZ, aspirin, Plavix. She continues to smoke. TRAVEL OUTSIDE OF THE [place] IN LAST 30 DAYS: No - Related Data Allergies/Adverse Reactions: tetracycline [Tetracycline] Allergy (Verified 10/02/15 02:23) Past Medical History - General Information source: Patient - Social History Smoking Status: Current Every Day Smoker Smoking Education Provided: Yes - <3 min Drug Abuse: None Lives with: Family Family History: CAD - both parents, Hypertension, Malignancy - Past Medical History Cardiac Medical History: Reports: Hx Coronary Artery Disease, Hx Heart Attack, Hx Hypercholesterolemia, Hx Hypertension Denies: Hx Congestive Heart Failure Pulmonary Medical History: Denies: Hx Asthma, Hx Bronchitis, Hx COPD, Hx Pneumonia, Hx Tuberculosis Neurological Medical History: Reports: Hx Seizures - 09/2015 seizure one time while here at the hospital Endocrine Medical History: Denies: Hx Diabetes Mellitus Type 2 Renal/ Medical History: Denies: Hx End Stage Renal Disease, Hx Kidney Stones, Hx Peritoneal Dialysis GI Medical History: Reports: Hx Gastroesophageal Reflux Disease, Hx Ulcer. Denies: Hx Cirrhosis Musculoskeltal Medical History: Reports Hx Arthritis, Denies Hx Multiple Sclerosis Psychiatric Medical History: Denies: Hx Bipolar Disorder, Hx Depression, Hx Schizophrenia Past Surgical History: Reports: Hx Cardiac Catheterization, Hx Section , Hx Coronary Stent - x1; June 2015, Hx Hysterectomy, Other - R BREAST LUMPECTOMY; B/L ANKLE REPAIR S/P FRACTURE - Immunizations Immunizations up to date: No Hx Diphtheria, Pertussis, Tetanus Vaccination: Yes Review of Systems - Review of Systems Constitutional: No symptoms reported EENT: No symptoms reported Cardiovascular: See HPI Respiratory: No symptoms reported Gastrointestinal: See HPI Genitourinary: No symptoms reported Female Genitourinary: No symptoms reported Musculoskeletal: No symptoms reported Skin: No symptoms reported Hematologic/Lymphatic: No symptoms reported Neurological/Psychological: No symptoms reported Physical Exam - Vital signs Vitals: Temp Pulse Resp BP Pulse Ox 97.9 F 81 16 187/77 H 99 09/15/17 23:11 09/15/17 23:11 09/15/17 23:11 09/15/17 23:11 09/15/17 23:11 Interpretation: Normal - General General appearance: Appears well, Alert - HEENT Head: Normocephalic, Atraumatic Eyes: Normal Pupils: PERRL - Respiratory Respiratory status: No respiratory distress Chest status: Nontender Breath sounds: Normal Chest palpation: Normal - Cardiovascular Rhythm: Regular Heart sounds: Normal auscultation Murmur: No - Abdominal Inspection: Normal Distension: No distension Bowel sounds: Normal Tenderness: Nontender Organomegaly: No organomegaly - Back Back: Normal, Nontender - Extremities General upper extremity: Normal inspection, Nontender, Normal color, Normal ROM , Normal temperature General lower extremity: Normal inspection, Nontender, Normal color, Normal ROM , Normal temperature, Normal weight bearing. No: Calvin's sign - Neurological Neuro grossly intact: Yes Cognition: Normal Orientation: AAOx4 Rajesh Coma Scale Eye Opening: Spontaneous [place] Coma Scale Verbal: Oriented Rajesh Coma Scale Motor: Obeys Commands Rajesh Coma Scale Total: 15 Speech: Normal Motor strength normal: LUE, RUE, LLE, RLE Sensory: Normal - Psychological Associated symptoms: Normal affect, Normal mood - Skin Skin Temperature: Warm Skin Moisture: Dry Skin Color: Normal Course - Re-evaluation Re-evalutation: Patient reported minimal improvement with GI cocktail which was given after protocol aspirin had been given. Carafate was given as well. She describes it now is just an annoying feeling. EKG with no T-wave inversions or ST segment changes in consecutive leads. Initial troponin is negative. CBC, chemistry unremarkable. Patient actually does not have any abdominal tenderness on examination. She is well-appearing with unremarkable vital signs except for hypertension which gradually improved. Very low suspicion of PE or aortic dissection based on patient's duration of symptoms, description of symptoms, and well appearance on exam. She is not tachycardic, she has no lower extremity swelling, recent travel or surgery, and she is pleasant and smiling. She ambulates without difficulty or shortness of breath. I had the patient ambulate in the room. Cycle troponin, still unremarkable. Patient is asking to leave, states she was to follow-up with GI, states she has been evaluated for this multiple times in the past, it is always the same, she just wanted to be checked out and she is unwilling to stay. I discussed with Dr. Keita. Because of negative workup and low suspicion of acute etiology at this time patient will be discharged to follow-up with her gastroenterology, discussed return precautions, patient states understanding and agreement. - Vital Signs Vital signs: Temp Pulse Resp BP Pulse Ox 98.1 F 81 18 160/70 H 100 09/16/17 05:01 09/15/17 23:11 09/16/17 05:01 09/16/17 05:01 09/16/17 05:01 - Laboratory Result Diagrams: 09/16/17 01:34 09/16/17 01:34 Laboratory results interpreted by me: 09/16/17 09/16/17 01:34 01:34 WBC 11.9 H RDW 18.2 H Sodium 146.3 H Est GFR (Non-Af Amer) 54 L Total Bilirubin 0.1 L Alkaline Phosphatase 134 H Discharge - Discharge Clinical Impression: Chest pain Qualifiers: Chest pain type: unspecified Qualified Code(s): R07.9 - Chest pain, unspecified Condition: Stable Disposition: HOME, SELF-CARE Additional Instructions: Chest Pain of Unclear Cause The exact cause of your chest pain isn't clear. Fortunately, there is no evidence of a dangerous medical condition. Further testing may be required to find the source of the pain. Most often, we find that this pain is coming from the chest wall -- the muscles or rib joints in the chest. But chest pain can come from the lung and lung lining, the esophagus, the heart valves or heart lining, and even the stomach or gallbladder. Rest. Eat lightly until the pain is gone. Take the tramadol provided if needed for pain. Follow-up with your engine room operator as discussed. You should call the physician immediately if the pain radiates to the shoulder, jaw or arms; if you start to run a fever or develop a cough; or if you develop shortness of breath, or other new or alarming symptoms. Prescriptions: Tramadol HCl 50 mg PO ASDIR PRN #20 tablet PRN Reason:
[2017-09-16 01:47] LABS: ABSOLUTE BASOPHILS # (AUTO) 0.1 10^3/uL (0.0-0.2); ABSOLUTE EOSINOPHILS # (AUTO) 0.5 10^3/uL (0.0-0.6); ABSOLUTE LYMPHOCYTES (AUTO) 3.8 10^3/uL (0.5-4.7); ABSOLUTE MONOCYTES (AUTO) 0.8 10^3/uL (0.1-1.4); ABSOLUTE NEUT (AUTO) 6.8 10^3/uL (1.7-8.2); BASOPHILS % (AUTO) 0.6 % (0-2); HEMATOCRIT 38.7 % (36.0-47.0); HEMOGLOBIN 12.6 g/dL (12.0-15.5); MEAN CORPUSCULAR HGB CONC 32.5 g/dL (32.0-36.0); MEAN CORPUSCULAR VOLUME 89 fl (80-97); MONOCYTES % (AUTO) 6.4 % (3-13); PLATELET COUNT 317 10^3/uL (150-450); RED BLOOD COUNT 4.33 10^6/uL (3.72-5.28); RED CELL DISTRIBUTION WIDTH 18.2 % (11.5-14.0); TOTAL CELLS COUNTED % (AUTO) 100 %; WHITE BLOOD COUNT 11.9 10^3/uL (4.0-10.5)
--- NOTE | 2017-09-16 02:03 | RADIOLOGY REPORT (SQ) ---
EXAM DESCRIPTION: CHEST SINGLE VIEW CLINICAL HISTORY: chest pain COMPARISON: 07/10/2017 FINDINGS: Single frontal view of the chest. The cardiomediastinal silhouette has normal size and contour. No consolidation, pneumothorax, or pleural effusion. Leads overlie the chest. No displaced rib fractures identified. Upper abdominal soft tissues are unremarkable. IMPRESSION: 1. No acute pulmonary process identified.
[2017-09-16 02:04] LABS: ALANINE AMINOTRANSFERASE 41 U/L (9-52); ALBUMIN 4.5 g/dL (3.5-5.0); ALKALINE PHOSPHATASE 134 U/L (38-126); ANION GAP 15 (5-19); ASPARTATE AMINO TRANSFERASE 21 U/L (14-36); BILIRUBIN,DIRECT 0.1 mg/dL (0.0-0.4); BILIRUBIN,TOTAL 0.1 mg/dL (0.2-1.3); BLOOD UREA NITROGEN 20 mg/dL (7-20); CALCIUM 9.4 mg/dL (8.4-10.2); CARBON DIOXIDE 27 mmol/L (22-30); CHLORIDE 104 mmol/L (98-107); CREATINE KINASE 57 U/L (30-135); GLUCOSE 110 mg/dL (75-110); POTASSIUM 4.2 mmol/L (3.6-5.0); SODIUM 146.3 mmol/L (137-145); TOTAL PROTEIN 7.7 g/dL (6.3-8.2)
[2017-09-16 02:15] LABS: TROPONIN I < 0.012 ng/mL
[2017-09-16] MEDS ORDERED: LIDOCAINE 2% VISCOUS SOLN 20 ML UDCUP PO ONE (02:22)
[2017-09-16] MEDS ORDERED: MAG HYDROX/AL HYDROX/SIMETH SUSP 30 ML UDCUP PO ONE (02:22)
[2017-09-16] MEDS ORDERED: METOCLOPRAMIDE HCL ORAL SOLN 10 MG/10 ML UDCUP PO ONE (02:22)
[2017-09-16] MEDS ORDERED: SUCRALFATE 1 GM TABLET PO ONE (02:22)
[2017-09-16] MEDS ORDERED: SIMETHICONE 80 MG TAB.CHEW PO ONE (03:27)
[2017-09-16] MEDS ORDERED: TRAMADOL HCL 50 MG TABLET PO ONE (04:40)
[2017-09-16 05:12] VITALS: BP 160/70
--- NOTE | 2017-09-16 14:33 | EKG REPORT ---
SEVERITY:- BORDERLINE ECG - SINUS RHYTHM PROBABLE LEFT ATRIAL ABNORMALITY : Confirmed by: Noble Haines 16-Sep-2017 14:33:10
== END 2017-09-16 05:13 | disposition home or self-care (01) ==
LOC: ER 22:55
DX: R07.9 Chest pain, unspecified (principal); F17.200 Nicotine dependence, unspecified, uncomplicated; E78.00 Pure hypercholesterolemia, unspecified; I10 Essential (primary) hypertension; Z90.710 Acquired absence of both cervix and uterus; I25.2 Old myocardial infarction
CPT/HCPCS: 93005; 99285; 36415; 82553; 82550; 85025; 80053; 84484; 71045; 93010; J3490

== ENCOUNTER → 2017-10-14 | Outpatient (CLI) | payer OTHER ==
--- NOTE | 2017-10-14 14:33 | RADIOLOGY REPORT (SQ) ---
EXAM DESCRIPTION: MRI CERVICAL SPINE WITHOUT COMPLETED DATE/TIME: 10/14/2017 1:05 pm REASON FOR STUDY: M54.12 RADICULOPATHY, CERVICAL REGION M54.12 RADICULOPATHY, CERVICAL REGION COMPARISON: 02/02/2016 TECHNIQUE: Sagittal and Axial imaging includes T1, T2, STIR and gradient echo sequences. LIMITATIONS: Motion. FINDINGS: ALIGNMENT: Normal. VERTEBRAE: Intact. BONE MARROW: Normal. No marrow replacement or reactive changes. DISCS: Desiccation multiple levels. HARDWARE: None in the spine. CORD AND BASE OF BRAIN: Normal in size and signal intensity. SOFT TISSUES: No soft tissue masses. C1-C2: No significant spinal stenosis. C2-C3: Mild spinal stenosis due disc osteophyte complex and ligament thickening. C3-C4: Mild -moderate spinal stenosis. Severe neural foraminal narrowing bilaterally. C4-C5: Mild -moderate spinal stenosis. Severe right and moderate left neural foraminal narrowing. C5-C6: Mild-moderate spinal stenosis. Severe neural foraminal narrowing bilaterally. C6-C7: No significant spinal stenosis or exit foraminal stenosis. C7-T1: No significant spinal stenosis or exit foraminal stenosis. OTHER: No other significant finding. IMPRESSION: Mild-moderate spinal stenosis. Varying degrees of neural foraminal stenosis. No signif icant change. TECHNICAL DOCUMENTATION: JOB ID: [id number] [employer]- All Rights Reserved Reading location - IP/workstation name: [email or web address]
== END ==
LOC: RAD 12:11
DX: M54.12 Radiculopathy, cervical region (principal)
CPT/HCPCS: 72141

== ENCOUNTER 2017-11-23 03:48 | Observation (INO) | payer OTHER ==
--- NOTE | 2017-11-23 04:26 | ER Document Report ---
ED General - General TRAVEL OUTSIDE OF THE [place] IN LAST 30 DAYS: No <HAIDER SIERRA - Last Filed: 11/23/17 07:05> <ANDREI BOGGS - Last Filed: 11/23/17 08:43> - General Chief Complaint: Chest Pain Stated Complaint: CHEST PAIN Time Seen by Provider: 11/23/17 04:15 - HPI Notes: Patient is a 52-year-old female with a history of [place] in 2016 with stent placement and hypertension presents to the ED complaining of left-sided chest pain 5 hours. Patient states that no positions improve or worsen her symptoms. Patient states that the pain does not radiate and is described as a soreness/throb. P.o. intake does not change her symptoms. She is urinating normally and having normal bowel movements. Patient has not had any sweats or dizziness. Patient states that she has had similar symptoms in the past. Last stress test was about 4 months ago. Patient does admit to smoking but denies any drug use. She denies any prolonged immobilization, recent surgery/trauma, previous DVT/PE, cancer history, hormone use. Denies any headache, fever, URI, sore throat, palpitations, syncope, cough, shortness of breath, wheeze, dyspnea , abdominal pain, nausea/vomiting/diarrhea, urinary retention, dysuria, hematuria, back pain, loss of control of bowel or bladder, numbness/tingling, or rash. Pt took 324mg ASA total in the last 3-4 hours. (HAIDER SIERRA) - Related Data Allergies/Adverse Reactions: tetracycline [Tetracycline] Allergy (Verified 10/02/15 02:23) Past Medical History - Social History Smoking Status: Current Every Day Smoker Family History: CAD - both parents, Hypertension, Malignancy - Past Medical History Cardiac Medical History: Reports: Hx Coronary Artery Disease, Hx Heart Attack, Hx Hypercholesterolemia, Hx Hypertension Denies: Hx Congestive Heart Failure Pulmonary Medical History: Denies: Hx Asthma, Hx Bronchitis, Hx COPD, Hx Pneumonia, Hx Tuberculosis Neurological Medical History: Reports: Hx Seizures - 09/2015 seizure one time while here at the hospital Endocrine Medical History: Denies: Hx Diabetes Mellitus Type 2 Renal/ Medical History: Denies: Hx End Stage Renal Disease, Hx Kidney Stones, Hx Peritoneal Dialysis GI Medical History: Reports: Hx Gastroesophageal Reflux Disease, Hx Ulcer. Denies: Hx Cirrhosis Musculoskeltal Medical History: Reports Hx Arthritis, Denies Hx Multiple Sclerosis Psychiatric Medical History: Denies: Hx Bipolar Disorder, Hx Depression, Hx Schizophrenia Past Surgical History: Reports: Hx Cardiac Catheterization, Hx Section , Hx Coronary Stent - x1; June 2015, Hx Hysterectomy, Other - R BREAST LUMPECTOMY; B/L ANKLE REPAIR S/P FRACTURE - Immunizations Immunizations up to date: No Hx Diphtheria, Pertussis, Tetanus Vaccination: Yes <HAIDER SIERRA - Last Filed: 11/23/17 07:05> Review of Systems - Review of Systems -: Yes All other systems reviewed and negative <HAIDER SIERRA - Last Filed: 11/23/17 07:05> Physical Exam <HAIDER SIERRA - Last Filed: 11/23/17 07:05> <ANDREI BOGGS - Last Filed: 11/23/17 08:43> - Vital signs Vitals: Temp Pulse Resp BP Pulse Ox 98.7 F 62 18 159/71 H 98 11/23/17 04:02 11/23/17 04:02 11/23/17 04:02 11/23/17 04:02 11/23/17 04:02 - Notes Notes: PHYSICAL EXAMINATION: GENERAL: Well-appearing, well-nourished and in no acute distress. HEAD: Atraumatic, normocephalic. EYES: Pupils equal round and reactive to light, extraocular movements intact, sclera anicteric, conjunctiva are normal. ENT: Nares patent and without discharge. oropharynx clear without exudates. No tonsilar hypertrophy or erythema. Moist mucous membranes. NECK: Normal range of motion, supple without lymphadenopathy Chest: + tenderness left side, correlates with pain described (reproducible chest pain) LUNGS: Breath sounds clear to auscultation bilaterally and equal. No wheezes rales or rhonchi. HEART: Regular rate and rhythm without murmurs, rubs, gallops. ABDOMEN: Soft, nontender, nondistended abdomen. No guarding, no rebound. No masses appreciated. Normal bowel sounds present. No CVA tenderness bilaterally. Musculoskeletal: FROM to passive/active. Strength 5+/5. Calvin neg b/l. Extremities: No cyanosis, clubbing, or edema b/l. Peripheral pulses 2+. Capillary refill less than 3 seconds. NEUROLOGICAL: Normal speech, normal gait. PSYCH: Normal mood, normal affect. SKIN: Warm, Dry, normal turgor, no rashes or lesions noted. (HAIDER SIERRA) Course - Laboratory Result Diagrams: 11/23/17 05:08 11/23/17 05:08 <HAIDER SIERRA - Last Filed: 11/23/17 07:05> - Laboratory Result Diagrams: 11/23/17 05:08 11/23/17 05:08 <ANDREI BOGGS - Last Filed: 11/23/17 08:43> - Re-evaluation Re-evalutation: 11/23/17 07:05 Pt has no new concerns or complaints Vitals are acceptable without any significant tachycardia, tachypnea, or hypoxia. PE is significant for reproducible chest wall tenderness which correlates with her pain described. CBC, CMP, cardiac enzyme x1/EKG are currently unremarkable for any acute pathology. Her CMP does show stable CKD. Chest x-ray was also unremarkable for any acute pathology. Patient has a heart score of 3 and a wells score of 0. Patient has been seen multiple times in the past for similar chest pain with her most recent stress test about 4 months ago which was negative. We will recheck a second troponin around 07. Disposition pending results and patient's symptomatology. Care transferred to Isabella GIRON. (HAIDER SIERRA) Patient received from [facility]. At change of shift at 705, patient did have a 10 minute run of being in second-degree AV block then returned back to normal sinus rhythm. This is never happened with this patient prior. Consulted Dr. Johnson at 0715, who agreed to admit to observation for second- degree block, pertinent laboratory, clinical and radiological findings with [facility] Da Silva, who will accept patient to observation. This provider also consulted with Dr. Khalil, high school english teacher on-call for [place] emergency room by request of Dr. Johnson, to verify the patient was in second-degree block. Advised patient that she will be placed under observation for serial lab and medication review. Patient verbalized an understanding of this plan of care and agreed to stay for observation. (ANDREI BOGGS) - Vital Signs Vital signs: Temp Pulse Resp BP Pulse Ox 98.7 F 62 11 L 144/61 H 98 11/23/17 04:02 11/23/17 04:02 11/23/17 08:01 11/23/17 08:01 11/23/17 08:01 - Laboratory Laboratory results interpreted by me: 11/23/17 11/23/17 05:08 05:08 RDW 15.0 H Seg Neutrophils % 41.4 L BUN 32 H Creatinine 1.27 H Est GFR ( Amer) 53 L Est GFR (Non-Af Amer) 44 L Total Bilirubin 0.1 L Discharge <HAIDER SIERRA - Last Filed: 11/23/17 07:05> - Discharge Admitting Provider: Hospitalist - [facility] Unit Admitted: Telemetry <ANDREI BOGGS - Last Filed: 11/23/17 08:43> - Discharge Clinical Impression: Chest wall pain, Second degree AV block Chest pain Qualifiers: Chest pain type: unspecified Qualified Code(s): R07.9 - Chest pain, unspecified Condition: Stable Disposition: ADMITTED OBSERVATION
--- NOTE | 2017-11-23 05:31 | RADIOLOGY REPORT (SQ) ---
Clinical History : chest pain , Exam : Portable AP view of the chest 11/23/2017 4:21 AM CDT Comparisons : Portable AP view of the chest September 16, 2017 Findings : The lungs are clear without focal consolidation or pleural effusion. The heart is normal in size. The mediastinal contours are normal in appearance. The thoracic spine is age appropriate. The shoulders are unremarkable. Limited evaluation of the upper abdomen demonstrates no gross abnormalities. Impression: No acute cardiopulmonary disease
[2017-11-23 05:32] LABS: ABSOLUTE EOSINOPHILS # (AUTO) 0.3 10^3/uL (0.0-0.6); ABSOLUTE LYMPHOCYTES (AUTO) 3.5 10^3/uL (0.5-4.7); ABSOLUTE MONOCYTES (AUTO) 0.8 10^3/uL (0.1-1.4); ABSOLUTE NEUT (AUTO) 3.3 10^3/uL (1.7-8.2); BASOPHILS % (AUTO) 0.5 % (0-2); HEMOGLOBIN 12.3 g/dL (12.0-15.5); LYMPHOCYTES % (AUTO) 43.8 % (13-45); MEAN CORPUSCULAR HEMOGLOBIN 30.8 pg (27.0-33.4); MEAN CORPUSCULAR HGB CONC 34.1 g/dL (32.0-36.0); MEAN CORPUSCULAR VOLUME 90 fl (80-97); MONOCYTES % (AUTO) 10.3 % (3-13); PLATELET COUNT 271 10^3/uL (150-450); RED BLOOD COUNT 3.99 10^6/uL (3.72-5.28); SEGMENTED NEUTROPHILS % (AUTO) 41.4 % (42-78); TOTAL CELLS COUNTED % (AUTO) 100 %
[2017-11-23 05:38] LABS: INTERNATIONAL RATION (INR) 0.83; PROTHROMBIN TIME 11.8 SEC (11.4-15.4)
[2017-11-23 05:39] LABS: PARTIAL THROMBOPLASTIN TIME 27.7 SEC (23.5-35.8)
[2017-11-23 05:55] LABS: ALANINE AMINOTRANSFERASE 30 U/L (9-52); ALKALINE PHOSPHATASE 106 U/L (38-126); ANION GAP 12 (5-19); ASPARTATE AMINO TRANSFERASE 18 U/L (14-36); BILIRUBIN,DIRECT 0.1 mg/dL (0.0-0.4); BILIRUBIN,TOTAL 0.1 mg/dL (0.2-1.3); BLOOD UREA NITROGEN 32 mg/dL (7-20); CALCIUM 8.9 mg/dL (8.4-10.2); CARBON DIOXIDE 26 mmol/L (22-30); CHLORIDE 104 mmol/L (98-107); GLUCOSE 107 mg/dL (75-110); POTASSIUM 4.7 mmol/L (3.6-5.0); SODIUM 141.7 mmol/L (137-145)
[2017-11-23] MEDS ORDERED: ACETAMINOPHEN 325 MG TABLET PO ONE (06:46)
--- NOTE | 2017-11-23 07:59 | EKG REPORT ---
SEVERITY:- BORDERLINE ECG - SINUS RHYTHM PROBABLE LEFT ATRIAL ABNORMALITY : Confirmed by: Beck Henry MD 23-Nov-2017 07:58:16
[2017-11-23] MEDS ORDERED: DOCUSATE SODIUM 100 MG CAPSULE PO PRN (09:25)
[2017-11-23] MEDS ORDERED: PROMETHAZINE HCL INJ 25 MG/1 ML VIAL IV PRN (09:25)
[2017-11-23] MEDS ORDERED: MAG HYDROX/AL HYDROX/SIMETH SUSP 30 ML UDCUP PO PRN (09:37)
[2017-11-23] MEDS ORDERED: NICOTINE 14 MG/24 HR PATCH.TD24 TD PRN (09:38)
[2017-11-23] MEDS: ASPIRIN 81 MG TABLET, ENT COATED PO SCH (10:30)
[2017-11-23] MEDS: CLOPIDOGREL BISULFATE 75 MG TABLET PO SCH (10:30)
[2017-11-23 11:05] LABS: FREE T4 (FREE THYROXINE) 0.91 ng/dL (0.78-2.19)
[2017-11-23 11:19] LABS: THYROID STIMULATING HORMONE 2.06 uIU/mL (0.47-4.68)
[2017-11-23] MEDS: OXYCODONE HCL IR 5 MG TABLET PO PRN ×2 (12:03→20:01)
[2017-11-23] MEDS: NORMAL SALINE 1000 ML 1,000 ML IV PRN (16:48)
--- NOTE | 2017-11-23 17:15 | PDOC H&P ---
History of Present Illness Admission Date/PCP: 11/23/17 07:59 Patient complains of: Chest pain History of Present Illness: KATERINE CONCEPCION is a 52 year old female with a past medical history of PR in 2016 status post stenting 1, hypertension, hyperlipidemia, bilateral carotid endarterectomies (most recently in July 2017), esophageal ulcer, GERD, and chronic pain who presented to the emergency department for report of left-sided chest pain 4 hours that was unrelieved by aspirin and tramadol at home. Evaluation in the emergency department revealed benign chest x-ray, EKG demonstrating normal sinus rhythm without evidence of ischemia/infarction, and essentially normal laboratory workup other than mild acute kidney injury ( creatinine 1.27). Initial troponin was negative. The patient had a negative stress test completed in our facility in May 2017, therefore she was kept in the emergency department for observation and repeat troponin which was also negative. 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 Upon further discussion with the patient, she revealed that she has been having intermittent episodes of dizziness associated with diaphoresis and syncopal events over the last several months. Her only recent medication change has been to discontinue Nexium and start Protonix. Outpatient bandage wrapping machine operator is Dr. Edgar at [facility]. She was referred to the hospitalist service for observational admission of chest pain with new AV bella heart block. Past Medical History Cardiac Medical History: Reports: Coronary Artery Disease, Myocardial Infarction , Hyperlipidema, Hypertension, Other - Vascular disease; bilateral carotid in neurectomy, left subclavian vein occ Denies: Congestive Heart Failure Pulmonary Medical History: Denies: Asthma, Bronchitis, Chronic Obstructive Pulmonary Disease (COPD), Pneumonia, Tuberculosis EENT Medical History: Reports: None Neurological Medical History: Reports: Seizures - 09/2015 x1 while admitted; not medicated Denies: Hemorrhagic CVA, Ischemic CVA Endocrine Medical History: Reports: Obesity Denies: Diabetes Mellitus Type 2 Renal/ Medical History: Denies: End Stage Renal Disease Malignancy Medical History: Reports: None GI Medical History: Reports: Gastroesophageal Reflux Disease Denies: Cirrhosis Musculoskeltal Medical History: Reports: Arthritis Skin Medical History: Reports: None Psychiatric Medical History: Reports: Tobacco Dependency Denies: Bipolar Disorder, Depression Hematology: Reports: Anemia Denies: Bleeding Tendencies Infectious Medical History: Reports: None Past Surgical History Past Surgical History: Reports: Cardiac Catheterization, Section, Coronary Stent - x1; June 2015, Hysterectomy, Orthopedic Surgery - B/L ANKLE REPAIR S/P FRACTURE, Vascular Surgery - Bilateral carotid endarterectomies , Other - R BREAST LUMPECTOMY; cervical spine nerve shaft tumor removal Social History Information Source: Patient Lives with: Spouse/Significant other Smoking Status: Current Every Day Smoker Cigarettes Packs Per Day: 1 Number of Years Smokin Frequency of Alcohol Use: None Hx Recreational Drug Use: No Drugs: None Hx Prescription Drug Abuse: No - Advance Directive Resuscitation Status: Full Code Surrogate healthcare decision maker:: The patient's , Antony Concepcion, Family History Family History: CAD - both parents, Hypertension, Malignancy Parental Family History Reviewed: Yes Children Family History Reviewed: Yes Sibling(s) Family History Reviewed.: NA Medication/Allergy Home Medications: Aspirin [Aspirin 81 mg Chewable Tablet] 81 mg PO DAILY 11/23/17 Atorvastatin Calcium [Lipitor 80 mg Tablet] 80 mg PO QHS 11/23/17 Clopidogrel Bisulfate [Plavix 75 mg Tablet] 75 mg PO DAILY 11/23/17 Lisinopril/Hydrochlorothiazide [Zestoretic 20-12.5 mg Tablet] 2 tab PO QAM 11/23 Metoprolol Tartrate [Lopressor 25 mg Tablet] 25 mg PO BID 11/23/17 Pantoprazole Sodium [Protonix] 40 mg PO DAILY 11/23/17 Tramadol HCl [Ultram 50 mg Tablet] 50 mg PO Q12HP PRN 11/23/17 Allergies/Adverse Reactions: tetracycline [Tetracycline] Allergy (Verified 10/02/15 02:23) Review of Systems Constitutional: PRESENT: fatigue. ABSENT: chills, fever(s), headache(s), weight gain, weight loss Eyes: ABSENT: visual disturbances Ears: ABSENT: hearing changes Nose, Mouth, and Throat: PRESENT: vertigo Cardiovascular: PRESENT: chest pain. ABSENT: dyspnea on exertion, edema, orthropnea, palpitations Respiratory: ABSENT: cough, hemoptysis Gastrointestinal: ABSENT: abdominal pain, constipation, diarrhea, hematemesis, hematochezia, nausea, vomiting Genitourinary: ABSENT: dysuria, hematuria Musculoskeletal: ABSENT: joint swelling Integumentary: PRESENT: diaphoresis. ABSENT: rash, wounds Neurological: PRESENT: syncope. ABSENT: abnormal gait, abnormal speech, confusion, dizziness, focal weakness Psychiatric: ABSENT: anxiety, depression, homidical ideation, suicidal ideation Endocrine: ABSENT: cold intolerance, heat intolerance, polydipsia, polyuria Hematologic/Lymphatic: PRESENT: easy bruising. ABSENT: easy bleeding Physical Exam Vital Signs: Temp Pulse Resp BP Pulse Ox 97.9 F 72 15 121/41 L 98 11/23/17 16:04 11/23/17 16:04 11/23/17 16:04 11/23/17 16:04 11/23/17 16:04 Intake & Output 11/22/17 11/23/17 11/24/17 06:59 06:59 06:59 Weight 88.7 kg General appearance: PRESENT: no acute distress, cooperative, well-developed, well-nourished, other - Overweight Head exam: PRESENT: atraumatic, normocephalic Eye exam: PRESENT: conjunctiva pink, EOMI, PERRLA. ABSENT: scleral icterus Ear exam: PRESENT: normal external ear exam Mouth exam: PRESENT: moist, tongue midline Neck exam: PRESENT: carotid bruit. ABSENT: JVD, lymphadenopathy, thyromegaly Respiratory exam: PRESENT: clear to auscultation [place], symmetrical, unlabored. ABSENT: rales, rhonchi, wheezes Cardiovascular exam: PRESENT: RRR, +S1, +S2. ABSENT: diastolic murmur, rubs, systolic murmur Pulses: PRESENT: normal dorsalis pedis pul Vascular exam: PRESENT: normal capillary refill GI/Abdominal exam: PRESENT: normal bowel sounds, soft. ABSENT: distended, guarding, mass, organolmegaly, rebound, tenderness Rectal exam: PRESENT: deferred Extremities exam: PRESENT: full ROM. ABSENT: calf tenderness, clubbing, pedal edema Neurological exam: PRESENT: alert, awake, oriented to person, oriented to place , oriented to time, oriented to situation, CN II-XII grossly intact. ABSENT: motor sensory deficit Psychiatric exam: PRESENT: appropriate affect, normal mood. ABSENT: homicidal ideation, suicidal ideation Skin exam: PRESENT: dry, intact, warm. ABSENT: cyanosis, rash Results Laboratory Results: 11/23/17 12:45 Troponin I < 0.012 Assessment & Plan - Diagnosis (1) Chest pain Qualifiers: Chest pain type: unspecified Qualified Code(s): R07.9 - Chest pain, unspecified Is this a current diagnosis for this admission?: Yes Plan: The patient presented to the emergency department with reproducible chest wall pain lasting approximately 4 hours, relieved by aspirin and Toradol. Pain is reproducible with palpation to the left sternal border. She denies alleviating and exacerbating factors. She denies associated symptoms. Although chest pain is atypical and more suggestive of chest wall/musculoskeletal pain, she does have multiple risk factors including previous PR, hypertension, hyperlipidemia, obesity, continuous tobacco use. Chest x-ray was benign. EKG demonstrated normal sinus rhythm without evidence of ischemia/infarct. Troponins are negative 3 TSH/free T4 both normal Negative stress test at our facility in June 2017. Echocardiogram (June 2017) revealed LVEF 55%, mild to moderate diastolic dysfunction, borderline LVH, trace mitral regurg and trace aortic regurg. The patient is admitted to the medical floor on continuous cardiac telemetry. Patient with second-degree heart block per telemetry strips; appears to have both type I and type II changes intermittently. As needed Tylenol and oxycodone for pain; will avoid patient's home dose Toradol as Toradol is noted to have EKG changes. SL nitroglycerin tabs as needed for cardiac chest pain. Nonpharmacological interventions for pain; ice, heat, stretching, distraction. Cardiology has been consulted; appreciate their evaluation recommendations. Withholding metoprolol this time secondary to AV block. Primary plan per cardiology. (2) Second degree AV block Is this a current diagnosis for this admission?: Yes Plan: Patient was observed to have a second-degree Heart block on telemetry. It appears that she has had intermittent type I and type II changes. The patient does report the history of several months of intermittent dizziness associated with diaphoresis and occasional syncopal events. She also reports labile blood pressures when monitoring at home. TSH/T4 normal. She is admitted to medical floor and continuous cardiac telemetry. Holding metoprolol per cardiology's recommendation. Cardiology has been consulted; appreciate their evaluation recommendations. Dr. Glaser spoke with Dr. Ryan at [facility] today; will continue to observe the patient here. Primary plan per cardiology. (3) Coronary artery disease Qualifiers: Coronary Disease-Associated Artery/Lesion type: k[place] artery [place] vs. transplanted heart: kiana heart Associated angina: angina presence unspecified Qualified Code(s): I25.10 - Atherosclerotic heart disease of kiana coronary artery without angina pectoris Is this a current diagnosis for this admission?: Yes Plan: PR with stenting 1 in June 2015. We will continue the patient's home dose aspirin, Plavix, fish oil, and Lipitor. (4) GERD (gastroesophageal reflux disease) Qualifiers: Esophagitis presence: esophagitis presence not specified Qualified Code(s) : K21.9 - Gastro-esophageal reflux disease without esophagitis Is this a current diagnosis for this admission?: Yes Plan: The patient reports that she was recently placed on Protonix; unfortunately, this medication does have an interaction with Plavix. Therefore will hold while evaluating chest pain and EKG changes. Patient was previously on Nexium but stopped due to the same interaction. H2 blockers w/ documented side effect of AV block. PPIs w/ interaction with plavix. Patient is advised that she will have Maalox every 6 available as needed for discomfort. Depending on severity of GERD and esophageal disease (history of esophageal ulcer), may need to consider Carafate. (5) Hypertension Qualifiers: Hypertension type: unspecified Qualified Code(s): I10 - Essential (primary ) hypertension Is this a current diagnosis for this admission?: Yes Plan: Metoprolol held per cardiology's recommendations. HCTZ held secondary to AK I. We will continue patient's home dose lisinopril. (6) Tobacco abuse Is this a current diagnosis for this admission?: Yes Plan: Smoking cessation is encouraged. Nicotine replacement therapies are offered. (7) APPLE (acute kidney injury) Is this a current diagnosis for this admission?: Yes Plan: Mild APPLE likely prerenal secondary to dehydration. Creatinine of 1.27. BUN 32. Will hold HCTZ. Gentle IV fluids. Monitor daily chemistry. - Time Time Spent: Greater than 70 Minutes Smoking Cessation Education: 3 to 10 minutes Medications reviewed and adjusted accordingly: Yes - Inpatient Certification Based on my medical assessment, after consideration of the patient's comorbidities, presenting symptoms, or acuity I expect that the services needed warrant INPATIENT care.: Yes I certify that my determination is in accordance with my understanding of Medicare's requirements for reasonable and necessary INPATIENT services [42 CFR 412.3e].: Yes Medical Necessity: Need For Continuous Telemetry Monitoring
[2017-11-23] MEDS ORDERED: LISINOPRIL 10 MG TABLET PO ONE (18:00)
[2017-11-23] MEDS: ACETAMINOPHEN 325 MG TABLET PO PRN (20:01)
[2017-11-23] MEDS: HEPARIN SOD (PORCINE) 5,000 UNIT/ML 1 ML SYRINGE SUBCUT SCH (21:19)
[2017-11-23] MEDS ORDERED: ATORVASTATIN CALCIUM 20 MG TABLET PO SCH (22:00)
--- NOTE | 2017-11-23 23:16 | CONSULTATION REPORT E ---
Consultation Report NAME: KATERINE FALL : 1965 AGE: 52Y DATE: 11/23/2017 ROOM: 404 B TO: MELANIE MILLER M.D. FROM: CAROLYN PACE M.D. Requesting Physician HISTORY OF PRESENT ILLNESS: The patient is a 52-year-old female with known history of hypertension, chronic kidney disease stage 3, history of coronary artery disease, history of AL in 09/2015 at which time she had a cardiac catheterization, had a stent placement in the right coronary artery. The patient states she woke up this morning at around 5 a.m. with constant left breast/chest pain. It does not radiate and is not associated with shortness of breath, diaphoresis, nausea, vomiting, or palpitations. The chest pain is reproduced by pressing on the left front of the chest. Of note, in the emergency room at 7:02 a.m. this morning she stated that she had some dizziness and almost near syncope and at that time the monitor strips shows the patient is in second degree AV block, both Mobitz type II and Mobitz type I [place]. On further questioning the patient states last year she had a syncopal episode and had a negative workup. She also states that off and on she has dizzy spells, sometimes at rest, sometimes when walking. They last only a few seconds to a few minutes but there is no recurrence of syncope. The patient described the similar symptoms that she had this morning when she had second degree AV block, documented on the monitor strip. Note that the patient is on a beta paul in the form of Lopressor 25 mg p.o. b.i.d. The patient denies palpitations, PND, orthopnea or leg edema. PAST MEDICAL HISTORY: Positive for history of coronary artery disease, history of AL in 2016. As per Dr. Ryan she had a stent placed in the right coronary artery. Also he states that she has a history of subclavian steal syndrome, but the patient denies any symptoms of syncope or near syncope or blackouts when she is working with her arms above her head. She also has a history of right carotid endarterectomy and also left carotid endarterectomy times twice. She states that they found this incidentally when she went for an AL in [place]. There is no history of TIA or CVA. The patient denies any claudication. No history of seizures, headaches, or migraines. There is no history of diabetes mellitus or thyroid disease. She has no history of COPD or asthma or sleep apnea, but the patient does smoke. SOCIAL HISTORY: The patient is a smoker. There is no history of EtOH abuse. PAST SURGICAL HISTORY: Positive for a history of right carotid endarterectomy x1, left carotid endarterectomy x2, cardiac catheterization and stent placement. ADVANCE DIRECTIVES: The patient is a full code. Her is the surrogate healthcare decision maker. ALLERGIES: She is allergic to TETRACYCLINE. FAMILY HISTORY: Positive for a history of coronary artery disease in her father who had an AL. Her mother of cardiac arrest after what she describes as surgery for subclavian steal syndrome. MEDICATIONS: 1. Tylenol 975 mg p.o. x1 and 650 mg p.o. q.4 hours p.r.n. 2. Aspirin 81 mg p.o. daily. 3. Atorvastatin 20 mg p.o. at bedtime. 4. Plavix 75 mg p.o. daily. 5. Colace 100 mg p.o. daily. 6. Maalox Plus 30 mL p.o. q.6 hours p.r.n. 7. Nicoderm 14 mg/24 hour patch, 1 transdermally p.r.n. 8. Oxycodone 5 mg p.o. q.6 hours p.r.n. 9. Phenergan 12.5 mg IV q.6 hours p.r.n. REVIEW OF SYSTEMS: CONSTITUTIONAL: Denies any fever, chills, or rigors. Denies fatigue or generalized weakness. HEAD: Denies headaches or head injury. EYES: No history of amblyopia or diplopia. No history of amaurosis fugax. EARS: No history of hearing loss. No history of tinnitus. No history of recurrent ear infections. NOSE: No history of nasal polyps. No history of nosebleeds. No history of hay fever. MOUTH: No altered taste sensation. No ulcers in the mouth. No bleeding from the gums. THROAT: No odynophagia or dysphagia. No recurrent sore throats. SKIN: No history of pruritus. No history of eczema or psoriasis. No history of yellowish discoloration of the skin. NECK: No history of neck pain. No swelling in the neck. No lymphadenopathy. No goiter. LUNGS: No history of asthma or COPD. No history of sleep apnea. No history of pulmonary embolism. No history of symptoms of upper respiratory tract infection or lower respiratory tract infection. No wheezing. No history of cough or sputum production. No pleuritic chest pain, but does have chest wall pain reproducible by pressing on the chest. No history of hemoptysis. CARDIAC: History of hypertension. No history of congestive heart failure. History of dizzy spells and near syncope and syncope as mentioned earlier. The last episode of near syncope being this morning when she had second degree AV block. History of CAD. History of AL and history of stent to the right coronary artery. Chest wall pain, no clear cut angina. No history of leg edema. No history of PND, orthopnea. GASTROINTESTINAL: No history of GERD. No history of peptic ulcer disease. No history of GI bleed. No fatty food intolerance. No history of abdominal pain. No history of altered bowel movements. No cirrhosis or hepatitis. RENAL: Although she claims no chronic kidney disease since 05/2017 she has been having chronic kidney disease stage 3. Her renal function was normal in 2017. There are no symptoms of UTI. No hematuria, pyuria, or dysuria. ENDOCRINE: No history of diabetes mellitus. No history of thyroid disease. No history of polydipsia or polyuria. No history of heat or cold intolerance. No history of hirsutism. No history of excessive sweating. MUSCULOSKELETAL: Denies any arthritis or collagen vascular disease. VASCULAR: She has peripheral vascular disease. She has had carotid endarterectomies. No history of DVT. No calf or buttock claudication in spite of her having bilateral femoral bruits. CENTRAL NERVOUS SYSTEM: No history of TIA or CVA. No history of headaches, migraines, or seizures. PSYCHIATRIC: No history of anxiety or depression. No history of suicidal ideation. No history of homicidal ideation. PHYSICAL EXAMINATION: GENERAL: On examination the patient is mildly obese, well-groomed, in no acute distress. VITAL SIGNS: She is afebrile with a temperature of 97.7 degrees Fahrenheit, her pulse is 58 beats per minute, blood pressure is 159/61, respirations are 17 per minute, O2 saturations are 98% on room air. HEENT: Head is atraumatic, normocephalic. Eyes: Pupils are equal, round and regular, reactive to light and accommodation. Extraocular movements are normal. There is no conjunctival pallor. There is no scleral icterus. Ears: Tympanic membranes are intact, external auditory canals are clear. Nose: There is no deviated nasal septum. There is no inflammation of the nasal mucous membrane. Mouth: Mucous membranes of the mouth are moist. Tongue is moist. There are no ulcers. There is no bleeding from the gums. Throat: There is no redness of the oropharynx. There are no exudates. SKIN: There is no skin rashes. There are no skin lesions. There is no petechiae or ecchymosis. NECK: Supple. There is no JVD. There is no lymphadenopathy. There is no goiter. Carotids are equal. There are bilateral carotid endarterectomy scars present. There is bilateral right greater than left loud carotid bruits. Trachea is central. LUNGS: Clear to auscultation and percussion. There are no rhonchi, rales, or wheezing. Left side of chest wall pain reproduced by pressing on her chest. This is the patient's symptom of chest pain and, hence, clearly noncardiac. HEART: S1, S2 is heard. There is no S3 gallop. There is no S4 gallop. There is a systolic murmur in the left sternal border and the apex. There is no rub. ABDOMEN: Soft, nontender. There is no hepatosplenomegaly. Bowel sounds are well heard. There are no tender areas or masses. There is no rebound, guarding, or rigidity. EXTREMITIES: Femorals are diminished bilaterally, right greater than left femoral bruit is present. Leg pulses are slightly diminished. There is no pedal edema. There is no cyanosis or clubbing. There is no DVT or cellulitis. There is no calf tenderness. There are loud bruits in both infraclavicular areas on both sides over the subclavian arteries. There is diminished responses bilaterally. CENTRAL NERVOUS SYSTEM: The patient is conscious, awake, alert and oriented x3 with no focal deficits. PSYCHIATRIC: The patient's judgment and insight are intact. Her affect is normal. DIAGNOSTICS: The patient's EKG done shows sinus rhythm within normal limits. The patient's monitor strips, as mentioned earlier, shows Mobitz type I and also Mobitz type II second degree AV block. The patient's chest x-ray shows no acute cardiopulmonary disease. The patient's white count is 8000, hemoglobin is 12.3, hematocrit is 36, platelet count is 271,000. The patient's ProTime is 11.8, INR is 0.83, PTT is 27.7. The patient's sodium is 141.7, potassium is 4.7, chloride 104, CO2 is 26. The patient's BUN is 32, creatinine is 1.27, and her GFR is 44 which is chronic kidney disease stage 3. Her glucose is 107, calcium is 8.9. The patient's TSH is 2.06, free T4 is 0.91. Two sets of cardiac enzymes in the form of troponin I are less than 0.012 and hence negative. The patient's liver function tests are normal. Total bilirubin is low at 0.1, the other liver functions are normal. The patient's total protein is 7, albumin is 4. IMPRESSION: 1. Symptomatic second degree AV block with the patient having dizziness and prior history of syncope and dizzy spells suggests that the patient may have these symptoms secondary to Mobitz type II second degree AV block. Hence, would recommend discontinuing the patient's Lopressor and observe the patient on telemetry. 2. Second degree AV block, both Mobitz type I and type II. 3. Chest wall pain, noncardiac. So far cardiac enzymes have been negative. EKG is bland. 4. Coronary artery disease, history of AL and history of RCA stent. 5. Hypertension. 6. Chronic kidney disease stage. 7. Peripheral vascular disease with bruits infraclavicularly and over the subclavian artery and femorals, and history of carotid endarterectomy bilaterally. Note that the patient has no calf or buttock claudication and no symptoms suggestive of subclavian steal syndrome. 8. Hyperlipidemia. 9. Tobacco abuse disorder. 10. Mild obesity. RECOMMENDATIONS: As mentioned earlier, would continue the patient's aspirin and Plavix. Would avoid any SA or AV blocking agent such as beta blockers or calcium channel blockers with SA and AV bella blocking agent such as Cardizem or verapamil. Would also avoid clonidine since this can cause bradycardia. Would also avoid digoxin. We will continue to observe the patient on telemetry. We will repeat the patient's EKG in the morning. We will push p.o. fluids. The patient has been counseled to stop smoking. Ill effects of tobacco have been discussed with the patient. Five minutes spent on tobacco cessation counseling. Note medications have been reviewed and medications have been stopped after discussions with the other caregiving providers on the case. Note medical decision making is of high complexity. Would recommend as an outpatient get a 30 day event monitor with the patient being off beta blockers and also later on would get an echo and a stress Cardiolite test which can be done as an outpatient. We will follow with you. TIME SPENT: Note the patient was seen at 10:30 a.m. this morning with 60 minutes spent on this patient, more than 50% of the time spent on direct patient care. Also discussed with Dr. 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 Shelby. DICTATING PHYSICIAN: MELANIE MILLER M.D. [id number] PHY#: [id number] ID: [id number] JOB#: [id number] ACCT: [id number] cc:MELANIE MILLER M.D. >
[2017-11-24 05:22] LABS: HEMATOCRIT 35.7 % (36.0-47.0); MEAN CORPUSCULAR HEMOGLOBIN 30.6 pg (27.0-33.4); MEAN CORPUSCULAR HGB CONC 33.7 g/dL (32.0-36.0); MEAN CORPUSCULAR VOLUME 91 fl (80-97); PLATELET COUNT 230 10^3/uL (150-450); RED BLOOD COUNT 3.93 10^6/uL (3.72-5.28); RED CELL DISTRIBUTION WIDTH 14.8 % (11.5-14.0)
[2017-11-24 05:59] LABS: ANION GAP 11 (5-19); BLOOD UREA NITROGEN 30 mg/dL (7-20); CALCIUM 8.8 mg/dL (8.4-10.2); CARBON DIOXIDE 25 mmol/L (22-30); CHLORIDE 108 mmol/L (98-107); CHOLESTEROL 219.96 mg/dL (0-200); GLUCOSE 102 mg/dL (75-110); POTASSIUM 4.8 mmol/L (3.6-5.0); SODIUM 144.4 mmol/L (137-145); TRIGLYCERIDES 483 mg/dL (<150)
[2017-11-24 06:09] LABS: DIRECT LDL 129 mg/dL (<100)
[2017-11-24] MEDS: HEPARIN SOD (PORCINE) 5,000 UNIT/ML 1 ML SYRINGE SUBCUT SCH ×2 (06:32→14:18)
[2017-11-24] MEDS: ACETAMINOPHEN 325 MG TABLET PO PRN (08:05)
[2017-11-24] MEDS: NORMAL SALINE 1000 ML 1,000 ML IV PRN (08:09)
[2017-11-24] MEDS: ASPIRIN 81 MG TABLET, ENT COATED PO SCH (09:44)
[2017-11-24] MEDS: CLOPIDOGREL BISULFATE 75 MG TABLET PO SCH (09:45)
[2017-11-24] MEDS: OXYCODONE HCL IR 5 MG TABLET PO PRN (09:49)
[2017-11-24] MEDS ORDERED: LISINOPRIL 10 MG TABLET PO SCH (10:00)
[2017-11-24] MEDS ORDERED: FENOFIBRATE NANOCRYSTALLIZED 145 MG TABLET PO SCH (10:00)
[2017-11-24 12:51] VITALS: BP 137/55
--- NOTE | 2017-11-24 18:26 | PROGRESS NOTE E ---
Progress Note NAME: KATERINE FALL : 1965 AGE: 52Y DATE: 11/24/2017 ROOM: 404 SUBJECTIVE: The patient has no further second degree AV block type 1 or type 2. The patient denies any dizziness. Note the patient has no anginal chest pain. There is no shortness of breath. There is no PND or orthopnea. There is no ventricular arrhythmia seen. Note that the patient has been started on lisinopril and the blood pressure is not optimally controlled but is fair for the patient to be discharged home and followed up in the outpatient for her blood pressure. OBJECTIVE: GENERAL: She is moderately obese, in no acute distress. She is well groomed. VITAL SIGNS: She is afebrile with a temperature of 98 degrees Fahrenheit. Pulse is 83 beats per minute. Blood pressure 156/59. Respirations 17 per minute. O2 sats are 99% on room air. HEENT: Head is atraumatic, normocephalic. Eyes: Pupils are equal, round, regular, reactive to light and accommodation. Extraocular movements are normal. There is no conjunctival pallor. There is no scleral icterus. ENT is negative. NECK: Supple. There is no JVD. Carotids are equal. There is no bruit. There is bilateral carotid endarterectomy scars present. There is loud bruit, right greater than left over the carotids. There is no carotid delay. There is no lymphadenopathy. There is no goiter. Trachea is central. LUNGS: Clear to auscultation and percussion without any rhonchi, rales, or wheezing. There is no chest wall tenderness today. HEART: S1, S2 heard. There is no S3 gallop. There is no S4 gallop. There is a systolic murmur left sternal border of the apex. There is no rub. ABDOMEN: Mildly obese, nontender. There is no hepatosplenomegaly. Bowel sounds are well heard. There are no tender areas or masses. There is no rebound, guarding or rigidity. EXTREMITIES: Femorals are slightly diminished. There are bilateral femoral bruits present. Leg pulses are diminished. There is no pedal edema. There is no DVT or cellulitis. There is no calf tenderness. PHOTOGRAPHIC EQUIPMENT TECHNICIAN: The patient is conscious, awake, alert, oriented x3 with no focal deficit. PSYCHIATRIC: The patient's judgment and insight are intact. Her affect is normal. LABORATORY DATA: The patient's white count is 6000, hemoglobin is 12, hematocrit is 35.7 and the patient's platelet count is 230,000. The patient's sodium is 144.4, potassium is 4.8, chloride is 108, CO2 is 25. The patient's BUN is 30, creatinine 1.17. GFR is reduced at 48 mL and her calcium is 8.8. Her glucose is 102. The patient's triglycerides are 483. Her LDL cholesterol is 129. Her HDL cholesterol is 25. IMPRESSION: 1. SYMPTOMATIC SECOND DEGREE AV BLOCK MOBITZ TYPE I AND MOBITZ TYPE II. When the patient was on beta paul there was no recurrence of beta blockers. The patient has been advised to avoid all beta blockers. Avoid Cardizem, verapamil, digoxin and clonidine or any AV/SV bella slowing agents. 2. SECOND DEGREE AV BLOCK MOBITZ TYPE I AND TYPE II RESOLVED. 3. CHEST WALL PAIN, NONCARDIAC. EKG and cardiac enzymes. 4. CORONARY ARTERY DISEASE, HISTORY OF PA, HISTORY OF RCA STENTS. 5. HYPERTENSION. 6. CHRONIC KIDNEY DISEASE STAGE III. 7. PERIPHERAL VASCULAR DISEASE WITH BRUITS INFRACLAVICULARLY AND OVER THE SUBCLAVIAN ARTERY AND FEMORALS AND HISTORY OF CAROTID ENDARTERECTOMY BILATERALLY. NOTE THAT THE PATIENT HAS NO CALF OR BUTTOCK CLAUDICATION AND NO SYMPTOMS OF SUGGESTIVE OF SUBCLAVIAN STEAL SYNDROME. 6. HYPERLIPIDEMIA. 7. TOBACCO ABUSE DISORDER. TOBACCO CESSATION DISCUSSED. As mentioned earlier, discussed with the patient the laboratory findings and I have stressed the importance of avoiding the medication listed above and any of the SV or AV bella slowing agents. Also discussed the laboratory values. 8. *------*. 9. DYSLIPIDEMIA WITH A LOW HDL LEVEL. On lisinopril, we will watch the patient's BUN and creatinine. The patient will follow up with her tangible personal property appraiser and medications have been reviewed. Continue aspirin and Plavix. Medical decision-making is of moderate complexity. Note that the patient states she had a stress test in May 2017 at *------* and this was negative as per patient. Forty minutes spent on this patient with more than 50% of the time spent in direct patient care. Will sign off. DICTATING PHYSICIAN: MELANIE MILLER M.D. [id number] PHY#: [id number] ID: [id number] JOB#: [id number] ACCT: [id number] cc: >
--- NOTE | 2017-11-24 21:43 | PDOC DISCHARGE SUMMARY ---
General - Admit/Disc Date/PCP Admission Date/Primary Care Provider: 11/23/17 07:59 Discharge Date: 11/24/17 - Discharge Diagnosis (1) Chest pain Is this a current diagnosis for this admission?: Yes (2) APPLE (acute kidney injury) Is this a current diagnosis for this admission?: Yes (3) Second degree AV block Is this a current diagnosis for this admission?: Yes (4) Coronary artery disease Is this a current diagnosis for this admission?: Yes (5) GERD (gastroesophageal reflux disease) Is this a current diagnosis for this admission?: Yes (6) Hypertension Is this a current diagnosis for this admission?: Yes (7) Tobacco abuse Is this a current diagnosis for this admission?: Yes - Additional Information Resuscitation Status: Full Code Discharge Diet: Cardiac Discharge Activity: Activity As Tolerated, Walk Frequently Prescriptions: Fenofibrate Nanocrystallized [Tricor 145 mg Tablet] 145 mg PO DAILY #30 tablet Lisinopril [Prinivil 10 mg Tablet] 40 mg PO DAILY #30 tablet Nicotine [Nicoderm 14 mg/24 Hr Transdermal Patch] 1 each TD DAILYP PRN #30 patch.td24 PRN Reason: Sucralfate [Carafate 1 gm Tablet] 1 gm PO ACHS #120 tablet Home Medications: Aspirin [Aspirin 81 mg Chewable Tablet] 81 mg PO DAILY 11/23/17 Atorvastatin Calcium [Lipitor 80 mg Tablet] 80 mg PO QHS 11/23/17 Clopidogrel Bisulfate [Plavix 75 mg Tablet] 75 mg PO DAILY 11/23/17 Tramadol HCl [Ultram 50 mg Tablet] 50 mg PO Q12HP PRN 11/23/17 Acetaminophen [Tylenol 325 mg Tablet] 650 mg PO Q4HP PRN tablet 11/24/17 Aspirin [Ecotrin 81 mg EC Tablet] 81 mg PO DAILY tabec 11/24/17 Atorvastatin Calcium [Lipitor 20 mg Tablet] 80 mg PO QHS tablet 11/24/17 Clopidogrel Bisulfate [Plavix 75 mg Tablet] 75 mg PO DAILY tablet 11/24/17 Fenofibrate Nanocrystallized [Tricor 145 mg Tablet] 145 mg PO DAILY #30 tablet 11/24/17 Lisinopril [Prinivil 10 mg Tablet] 40 mg PO DAILY #30 tablet 11/24/17 Nicotine [Nicoderm 14 mg/24 Hr Transdermal Patch] 1 each TD DAILYP PRN #30 patch.td24 11/24/17 Sucralfate [Carafate 1 gm Tablet] 1 gm PO ACHS #120 tablet 11/24/17 History of Present Illness History of Present Illness: AKTERINE FALL is a 52 year old female with a past medical history of MS in 2016 status post stenting 1, hypertension, hyperlipidemia, bilateral carotid endarterectomies (most recently in July 2017), esophageal ulcer, GERD, and chronic pain who presented to the emergency department for report of left-sided chest pain 4 hours that was unrelieved by aspirin and tramadol at home. Evaluation in the emergency department revealed benign chest x-ray, EKG demonstrating normal sinus rhythm without evidence of ischemia/infarction, and essentially normal laboratory workup other than mild acute kidney injury ( creatinine 1.27). Initial troponin was negative. The patient had a negative stress test completed in our facility in May 2017, therefore she was kept in the emergency department for observation and repeat troponin which was also negative. The emergency department provider was in preparation to discharge the patient home with outpatient follow-up with her established military police officer when she was noted to have EKG changes by telemetry; second-degree heart block with both type I and type II changes intermittently. Upon further discussion with the patient, she revealed that she has been having intermittent episodes of dizziness associated with diaphoresis and syncopal events over the last several months. Her only recent medication change has been to discontinue Nexium and start Protonix. Outpatient military police officer is Dr. Edgar at [facility]. She was referred to the hospitalist service for observational admission of chest pain with new AV bella heart block. Hospital Course Hospital Course: The patient presented to the emergency department with reproducible chest wall pain lasting approximately 4 hours, relieved by aspirin and Toradol. Pain is reproducible with palpation to the left sternal border. Although her chest pain was atypical and more suggestive of chest wall/musculoskeletal pain, she does have multiple risk factors including previous MS, hypertension, hyperlipidemia, obesity, continuous tobacco use and so was evaluated for cardiac causes. During her initial evaluation period, she was noted to have bradycardia with a 2nd Degree Type II block. Chest x-ray was benign. EKG demonstrated normal sinus rhythm without evidence of ischemia/infarct. Telemetry revealed intermittent 2nd Degree block with both Mobitz Type I and Type II Troponins are negative 4 TSH/free T4 both normal Lipid panel showed low HDL (25), mildly elevated LDL (125), and elevated triglycerides (483) A negative Nuclear Stress test was completed at our facility in June 2017. Echocardiogram (June 2017) revealed LVEF 55%, mild to moderate diastolic dysfunction, borderline LVH, trace mitral regurg and trace aortic regurg. The patient is admitted to the medical floor on continuous cardiac telemetry. She placed on daily aspirin therapy and her home dose Plavix and Atorvastatin were continued. Her tramadol and metoprolol were held secondary to potential for AV bella conduction delays. Her PPI was helpd secondary to medication interaction with Plavix. Her HCTZ was held secondary to APPLE (creatinine 1.27) and she was provided gentle IV fluids for hydration. Creatinine had returned to normal and she had negative orthostatic vital signs the following day. Cardiology has been consulted. Our Substation Operator Helper spoke with Dr. Ryan (pt followed by [facility]). She was observed overnight with no further episodes of heart block. She was noted to be in NSR at rest and mildly tachycardic (110-120) with activity; likely secondary to cessation of metoprolol. She denied further episodes of chest pain, dizziness, or syncope/ near syncope. At time of discharge, the patient was in stable condition and symptom free. She was advised to follow up with her primary care provider within 1 week, her Substation Operator Helper within 1-2 weeks to arrange for 30 day event monitor, and her GI provider as scheduled. She was provided a prescription for Tricor and instructed to continue her atorvastatin, lisinporil (without hctz), Nicoderm patches, and Carafate. She was advised of the potential side effects of PPI/H2 blockers and instructed to use prn Maalox for break through symptoms and to discuss with Substation Operator Helper the safest preventative reflux medication to resume given her history of esophageal ulcers. She was encouraged to return to the Emergency Department for any worrisome symptoms. Physical Exam Vital Signs: Temp Pulse Resp BP Pulse Ox 97.9 F 87 18 137/55 H 98 11/24/17 13:05 11/24/17 13:05 11/24/17 13:05 11/24/17 13:05 11/24/17 13:05 Intake & Output 11/23/17 11/24/17 11/25/17 06:59 06:59 06:59 Intake Total 3623 Balance 3623 Weight 90.1 kg General appearance: PRESENT: no acute distress, cooperative, well-developed, well-nourished, other - Overweight Head exam: PRESENT: atraumatic, normocephalic Eye exam: PRESENT: conjunctiva pink, EOMI, PERRLA. ABSENT: scleral icterus Ear exam: PRESENT: normal external ear exam Mouth exam: PRESENT: moist, tongue midline Neck exam: ABSENT: carotid bruit, JVD, lymphadenopathy, thyromegaly Respiratory exam: PRESENT: clear to auscultation yolette, symmetrical, unlabored. ABSENT: rales, rhonchi, wheezes Cardiovascular exam: PRESENT: RRR, +S1, +S2. ABSENT: diastolic murmur, rubs, systolic murmur Pulses: PRESENT: normal dorsalis pedis pul Vascular exam: PRESENT: normal capillary refill GI/Abdominal exam: PRESENT: normal bowel sounds, soft. ABSENT: distended, guarding, mass, organolmegaly, rebound, tenderness Rectal exam: PRESENT: deferred Extremities exam: PRESENT: full ROM. ABSENT: calf tenderness, clubbing, pedal edema Neurological exam: PRESENT: alert, awake, oriented to person, oriented to place , oriented to time, oriented to situation, CN II-XII grossly intact. ABSENT: motor sensory deficit Psychiatric exam: PRESENT: appropriate affect, normal mood. ABSENT: homicidal ideation, suicidal ideation Skin exam: PRESENT: dry, intact, warm. ABSENT: cyanosis, rash Results Laboratory Results: 11/24/17 04:30 11/24/17 04:30 11/24/17 11/24/17 04:30 04:30 WBC 6.0 RBC 3.93 Hgb 12.0 Hct 35.7 L MCV 91 MCH 30.6 MCHC 33.7 RDW 14.8 H Plt Count 230 Sodium 144.4 Potassium 4.8 Chloride 108 H Carbon Dioxide 25 Anion Gap 11 BUN 30 H Creatinine 1.17 Est GFR ( Amer) 59 L Est GFR (Non-Af Amer) 48 L Glucose 102 Calcium 8.8 Triglycerides 483 H Cholesterol 219.96 H LDL Cholesterol Direct 129 H VLDL Cholesterol UNABLE TO CALCULATE HDL Cholesterol 25 L 11/23/17 11/23/17 12:45 19:00 Troponin I < 0.012 < 0.012 Qualifiers - * PATIENT BEING DISCHARGED WITH ANY OF THE FOLLOWING DIAGNOSIS: No Plan Discharge Plan: Discharge to home with self care. Follow up with primary care provider within 1 week. Follow up with Substation Operator Helper within 1-2 weeks to arrange for event monitor. Return to the emergency department immediately for syncope, chest pain, or palpitations, especially if associated with dizziness or weakness. Time Spent: Less than 30 Minutes
[2017-11-24] MEDS ORDERED: ATORVASTATIN CALCIUM 20 MG TABLET PO SCH (22:00)
== END 2017-11-24 14:22 | disposition home or self-care (01) ==
LOC: ER 03:48 → EH 07:59 → 4N 09:11
PROVIDERS: ADMIT Internal Medicine; ATTEND Internal Medicine
PROC: HZ31ZZZ Individual Counseling for Substance Abuse Treatment, Behavioral (ICD-10-PCS; principal; 2017-11-23)
DX: R07.89 Other chest pain (principal); N17.9 Acute kidney failure, unspecified; I44.1 Atrioventricular block, second degree; I25.10 Atherosclerotic heart disease of native coronary artery without angina pectoris; K21.9 Gastro-esophageal reflux disease without esophagitis; I12.9 Hypertensive chronic kidney disease with stage 1 through stage 4 chronic kidney disease, or unspecified chronic kidney disease; N18.3 Chronic kidney disease, stage 3 (moderate); E78.5 Hyperlipidemia, unspecified; G89.29 Other chronic pain; E66.9 Obesity, unspecified; R00.1 Bradycardia, unspecified; Z79.82 Long term (current) use of aspirin; Z79.899 Other long term (current) drug therapy; R09.89 Other specified symptoms and signs involving the circulatory and respiratory systems; I73.9 Peripheral vascular disease, unspecified; R53.83 Other fatigue; F17.210 Nicotine dependence, cigarettes, uncomplicated; I25.2 Old myocardial infarction; R61 Generalized hyperhidrosis; Z79.02 Long term (current) use of antithrombotics/antiplatelets; Z95.5 Presence of coronary angioplasty implant and graft; Z98.890 Other specified postprocedural states; Z82.49 Family history of ischemic heart disease and other diseases of the circulatory system; Z82.41 Family history of sudden cardiac death; Z86.79 Personal history of other diseases of the circulatory system; Z68.34 Body mass index [BMI] 34.0-34.9, adult
CPT/HCPCS: 93005; 99285; 36415 ×2; 84439; 84443; 85025; 85027; 85610; 85730; 80048; 80053; 84484; 80061; 71045; 93010; 99406; G0378 ×2; J1644 ×2; J3490; J7030 ×2

== ENCOUNTER 2018-02-08 11:13 | Emergency (ER) | payer OTHER | END 2018-02-08 11:15 | disposition left against medical advice (07) | LOC: ER 11:13 | DX: Z53.21 Procedure and treatment not carried out due to patient leaving prior to being seen by health care provider (principal) ==

== ENCOUNTER 2018-02-09 00:02 | Emergency (ER) | payer OTHER ==
--- NOTE | 2018-02-09 00:29 | ER Document Report ---
ED General - General Stated Complaint: BLOOD PRESSURE PROBLEM Time Seen by Provider: 02/09/18 00:27 Notes: Patient is a 52-year-old female presents with complaint of high blood pressure. Patient says her blood pressure is now been high for several days. She says when her blood pressure gets high she develops a headache. Since she went to [facility] earlier. She said that time her blood pressure is very high and she had headache. She said they treat her headache but her blood pressure remained high and she was discharged and therefore headache continues to return and therefore she is come to the ER. She says her blood pressure has been as high as it 240 at home. He was high for the paramedics and therefore they give her a dose of clonidine. She says her headache proved with dose of clonidine but her blood pressure still high. Denies chest pain or difficulty breathing. No focal weakness or numbness. She said she is on lisinopril 30 mg once a day for high blood pressure. She says she is to be on metoprolol and hydrochlorothiazide. She said the hydrochlorothiazide was stopped some time ago. She said recently to stop the metoprolol because she was having appears to be an AV bella block. She is currently on hold to monitor and is scheduled to see Dr. Edgar, tooling specialist, for reevaluation. TRAVEL OUTSIDE OF THE [place] IN LAST 30 DAYS: No - Related Data Allergies/Adverse Reactions: tetracycline [Tetracycline] Allergy (Verified 10/02/15 02:23) Past Medical History - Social History Smoking Status: Unknown if Ever Smoked Frequency of alcohol use: None Drug Abuse: None Family History: CAD - both parents, Hypertension, Malignancy - Past Medical History Cardiac Medical History: Reports: Hx Coronary Artery Disease, Hx Heart Attack, Hx Hypercholesterolemia, Hx Hypertension Denies: Hx Congestive Heart Failure Pulmonary Medical History: Denies: Hx Asthma, Hx Bronchitis, Hx COPD, Hx Pneumonia, Hx Tuberculosis Neurological Medical History: Reports: Hx Seizures - 09/2015 x1 while admitted; not medicated Endocrine Medical History: Denies: Hx Diabetes Mellitus Type 2 Renal/ Medical History: Denies: Hx End Stage Renal Disease, Hx Kidney Stones, Hx Peritoneal Dialysis GI Medical History: Reports: Hx Gastroesophageal Reflux Disease, Hx Ulcer. Denies: Hx Cirrhosis Musculoskeletal Medical History: Reports Hx Arthritis, Denies Hx Multiple Sclerosis Psychiatric Medical History: Denies: Hx Bipolar Disorder, Hx Depression, Hx Schizophrenia Past Surgical History: Reports: Hx Cardiac Catheterization, Hx Section , Hx Coronary Stent - x1; June 2015, Hx Hysterectomy, Hx Orthopedic Surgery - B/L ANKLE REPAIR S/P FRACTURE, Hx Vascular Surgery - Bilateral carotid endarterectomies, Other - R BREAST LUMPECTOMY; cervical spine nerve shaft tumor removal - Immunizations Immunizations up to date: No Hx Diphtheria, Pertussis, Tetanus Vaccination: Yes Review of Systems - Review of Systems Notes: My Normal Review Basic REVIEW OF SYSTEMS: CONSTITUTIONAL : Denies fever, chills, or sweats. Denies recent illness. EENT: Denies eye, ear, throat, or mouth pain or symptoms. Denies nasal or sinus congestion. CARDIOVASCULAR: Denies chest pain. RESPIRATORY: Denies cough, cold, or chest congestion. Denies shortness of breath, difficulty breathing, or wheezing. GASTROINTESTINAL: Denies abdominal pain. Denies nausea, vomiting, or diarrhea. MUSCULOSKELETAL: Denies neck or back pain or joint pain or swelling. SKIN: Denies rash or skin lesions. NEUROLOGICAL: Denies altered mental status or loss of consciousness. Intermittent headache. Denies weakness or paralysis or loss of use of either side. Denies problems with gait or speech. Denies sensory or motor loss. ALL OTHER SYSTEMS REVIEWED AND NEGATIVE. Physical Exam - Vital signs Vitals: Pulse Ox 97 02/09/18 00:17 - Notes Notes: General Appearance: Well nourished, alert, cooperative, no acute distress, no obvious discomfort. Vitals: reviewed, See vital signs table. Head: no swelling or tenderness to the head Eyes: PERRL, EOMI, Conjuctiva clear Mouth: No decreasd moisture Lungs: No wheezing, No rales, No rhonci, No accessory muscle use, good air exchange bilaterally. Heart: Normal rate, Regular rythm, No murmur, no rub Abdomen: Normal BS, soft, No rigidity, No abdominal tenderness, No guarding, no rebound, no abdominal masses, no organomegaly Extremities: strength 5/5 in all extremities, good pulses in all extremities, no swelling or tenderness in the extremities, no edema. Skin: warm, dry, appropriate color, no rash Neuro: speech clear, oriented x 3, normal affect, responds appropriately to questions. Renal nerves II through XII are intact. Distal sensation intact. Normal gait. No focal weakness on exam. Course - Re-evaluation Re-evalutation: 02/09/18 01:16 Patient is having some restless legs and external legs. States this happens frequently night and she takes tramadol which helps. She says she has been taking tramadol for 2 years for this. I have ordered a dose of tramadol. She currently has no headache and no chest pain and is otherwise feeling well. 02/09/18 02:25 Patient is asymptomatic. Her blood pressures decrease appropriately. She looks and feels well. This time I feel she is safe to be discharged home. I will place her back on hydrochlorothiazide to get better control of her blood pressure. I will have her take her morning and afternoon this way she still has some afternoon coverage for her blood pressure as it seems to peak more in the afternoon per her history. Patient to return to ER if she has severe headache, chest pain, difficulty breathing, or she feels unwell. Patient agrees with plan and will be discharged home. Dictation of this chart was performed using voice recognition software; therefore, there may be some unintended grammatical errors. - Vital Signs Vital signs: Temp Pulse Resp BP Pulse Ox 98.1 F 18 214/76 H 98 02/09/18 00:18 02/09/18 00:18 02/09/18 00:18 02/09/18 00:18 - Laboratory Result Diagrams: 02/09/18 00:23 02/09/18 00:23 Laboratory results interpreted by me: 02/09/18 02/09/18 00:23 00:23 WBC 12.2 H Seg Neutrophils % 91.7 H Lymphocytes % 7.4 L Monocytes % 0.6 L Absolute Neutrophils 11.2 H Creatinine 1.72 H Est GFR ( Amer) 38 L Est GFR (Non-Af Amer) 31 L Glucose 222 H - EKG Interpretation by Me Additional EKG results interpreted by me: 02/09/18 00:28 EKG is reviewed and interpreted by me. EKG shows sinus rhythm with rate of [address] segment elevation or depression. No ischemic T-wave inversions. Portable, QRS duration, QTc intervals are within normal range. No old EKG available for comparison. Discharge - Discharge Clinical Impression: Hypertension Qualifiers: Hypertension type: unspecified Qualified Code(s): I10 - Essential (primary) hypertension Headache Qualifiers: Headache type: unspecified Headache chronicity pattern: episodic headache Intractability: not intractable Qualified Code(s): R51 - Headache Condition: Good Disposition: HOME, SELF-CARE Instructions: Hydrochlorothiazide ([facility]) Additional Instructions: Your blood pressure has been running high. We therefore we will place you back on hydrochlorothiazide. Please have a low threshold to return to the ER if you have recurrent high blood pressures with symptoms such as headache, chest pain, difficulty breathing, or if you feel that you are worsening in any way. Please follow-up with your tooling specialist as scheduled for review of your heart monitor. Prescriptions: Hydrochlorothiazide 12.5 mg PO BID #30 capsule
[2018-02-09] MEDS ORDERED: HYDRALAZINE HCL 50 MG TABLET PO ONE (00:37)
[2018-02-09] MEDS ORDERED: HYDROCHLOROTHIAZIDE 25 MG TABLET PO ONE (00:37)
[2018-02-09 00:47] LABS: ABSOLUTE LYMPHOCYTES (AUTO) 0.9 10^3/uL (0.5-4.7); ABSOLUTE MONOCYTES (AUTO) 0.1 10^3/uL (0.1-1.4); ABSOLUTE NEUT (AUTO) 11.2 10^3/uL (1.7-8.2); BASOPHILS % (AUTO) 0.2 % (0-2); EOSINOPHILS % (AUTO) 0.1 % (0-6); HEMATOCRIT 40.8 % (36.0-47.0); HEMOGLOBIN 13.5 g/dL (12.0-15.5); LYMPHOCYTES % (AUTO) 7.4 % (13-45); MEAN CORPUSCULAR HEMOGLOBIN 30.9 pg (27.0-33.4); MEAN CORPUSCULAR HGB CONC 33.1 g/dL (32.0-36.0); MEAN CORPUSCULAR VOLUME 93 fl (80-97); MONOCYTES % (AUTO) 0.6 % (3-13); PLATELET COUNT 247 10^3/uL (150-450); RED BLOOD COUNT 4.38 10^6/uL (3.72-5.28); RED CELL DISTRIBUTION WIDTH 13.4 % (11.5-14.0); SEGMENTED NEUTROPHILS % (AUTO) 91.7 % (42-78); TOTAL CELLS COUNTED % (AUTO) 100 %; WHITE BLOOD COUNT 12.2 10^3/uL (4.0-10.5)
[2018-02-09 00:53] LABS: ALANINE AMINOTRANSFERASE 47 U/L (9-52); ALBUMIN 4.2 g/dL (3.5-5.0); ALKALINE PHOSPHATASE 107 U/L (38-126); ANION GAP 10 (5-19); ASPARTATE AMINO TRANSFERASE 31 U/L (14-36); BILIRUBIN,DIRECT 0.3 mg/dL (0.0-0.4); BILIRUBIN,TOTAL 0.4 mg/dL (0.2-1.3); BLOOD UREA NITROGEN 20 mg/dL (7-20); CALCIUM 9.8 mg/dL (8.4-10.2); CARBON DIOXIDE 26 mmol/L (22-30); CHLORIDE 106 mmol/L (98-107); GLUCOSE 222 mg/dL (75-110); POTASSIUM 4.5 mmol/L (3.6-5.0); SODIUM 141.7 mmol/L (137-145); TOTAL PROTEIN 7.2 g/dL (6.3-8.2)
[2018-02-09] MEDS ORDERED: TRAMADOL HCL 50 MG TABLET PO ONE (01:15)
--- NOTE | 2018-02-09 02:03 | RADIOLOGY REPORT (SQ) ---
EXAM DESCRIPTION: CT HEAD WITHOUT IV CONTRAST COMPLETED DATE/TME: 02/09/2018 00:37 CLINICAL HISTORY: headaches COMPARISON: 08/03/2015 TECHNIQUE: Axial CT of the head obtained from the skull apex to the skull base without contrast. FINDINGS: No acute intracranial hemorrhage identified. No mass, mass effect, shift of the midline, abnormal extra-axial fluid collection or CT evidence of acute ischemic change identified. The ventricular system is unremarkable. No acute abnormalities of the supratentorial white matter, basal ganglia, cerebellum, or brainstem. Minimal mucosal thickening of the ethmoid air cells. Mastoid air cells are well aerated. No skull fracture identified. Visualized orbits and globes are unremarkable. DLP: 990.56 mGy-cm IMPRESSION: 1. No acute intracranial abnormality identified. This exam was performed according to our departmental dose-optimization program, which includes automated exposure control, adjustment of the mA and/or kV according to patient size and/or use of iterative reconstruction technique.
[2018-02-09 02:36] VITALS: BP 144/64
== END 2018-02-09 02:36 | disposition home or self-care (01) ==
LOC: ER 00:02
DX: I10 Essential (primary) hypertension (principal); R51 Headache; I25.10 Atherosclerotic heart disease of native coronary artery without angina pectoris; E78.00 Pure hypercholesterolemia, unspecified; I25.2 Old myocardial infarction; Z90.710 Acquired absence of both cervix and uterus
CPT/HCPCS: 36415; 70450; 80053; 85025; 99284

== ENCOUNTER → 2018-02-27 | Outpatient (CLI) | payer OTHER ==
[~2018-02-27] MED LIST changes: +ALBUTEROL SULFATE 0.083% NEB 2.5 MG/3 ML AMPUL NEB ONE; -AMINOPHYLLINE INJ/PF 250 MG/10 ML SDV IV ONE; -HYDROCHLOROTHIAZIDE 12.5 MG CAPSULE PO ONE; -LISINOPRIL 10 MG TABLET PO ONE; -REGADENOSON INJ 0.4 MG/5 ML DISP.SYRIN IV ONE
--- NOTE | 2018-03-02 12:53 | Pulmonary Function Test ---
Pulmonary Function Test Date of Procedure:: 03/02/18 INDICATION:: Dyspnea Referring Provider: Dr. Joseph Velazquez Indian Nanny: Ann Marie Fritz ACADEMIC PHYSICIAN, DATA QUALITY CONSULTANT - Report Spirometry: FVC 3.10 L 98% postbronchodilator 3.07 L 97% FEV1 2.25 L 87% postbronchodilator 2.27 L 88% FEV1/FVC % 73 postbronchodilator 74 predicted 84 FEF 25-75% 1.46 L 51% postbronchodilator 1.72 L 61% Impression: Mild obstructive ventilatory defect with a mild response to bronchodilator therapy.
== END ==
LOC: RT 10:15
PROVIDERS: ATTEND Family Medicine
DX: R06.00 Dyspnea, unspecified (principal); F17.200 Nicotine dependence, unspecified, uncomplicated; I10 Essential (primary) hypertension
CPT/HCPCS: 94060

== ENCOUNTER 2018-03-29 14:23 | Observation (INO) | payer OTHER ==
[2018-03-29] MEDS ORDERED: ASPIRIN 325 MG TABLET PO ONE (15:09)
[2018-03-29] MEDS ORDERED: CLONIDINE HCL 0.2 MG TABLET PO ONE (15:11)
--- NOTE | 2018-03-29 15:17 | ER Document Report ---
ED Medical Screen (RME) - General Chief Complaint: Chest Pain Stated Complaint: CHEST DISCOMFORT Time Seen by Provider: 03/29/18 15:08 Mode of Arrival: Ambulatory Information source: Patient TRAVEL OUTSIDE OF THE [place] IN LAST 30 DAYS: No - HPI Patient complains to provider of: CP, elevated BP Onset: This morning - pt with elevated BP readings for the past couple of days despite taking her meds and SSCP starting earlier this am - Related Data Allergies/Adverse Reactions: tetracycline [Tetracycline] Allergy (Verified 03/29/18 14:24) Past Medical History - Past Medical History Cardiac Medical History: Reports: Hx Coronary Artery Disease, Hx Heart Attack, Hx Hypercholesterolemia, Hx Hypertension Denies: Hx Congestive Heart Failure Pulmonary Medical History: Denies: Hx Asthma, Hx Bronchitis, Hx COPD, Hx Pneumonia, Hx Tuberculosis Neurological Medical History: Reports: Hx Seizures - 09/2015 x1 while admitted; not medicated Endocrine Medical History: Denies: Hx Diabetes Mellitus Type 2 Renal/ Medical History: Denies: Hx End Stage Renal Disease, Hx Kidney Stones, Hx Peritoneal Dialysis GI Medical History: Reports: Hx Gastroesophageal Reflux Disease, Hx Ulcer. Denies: Hx Cirrhosis Musculoskeltal Medical History: Reports Hx Arthritis, Denies Hx Multiple Sclerosis Psychiatric Medical History: Denies: Hx Bipolar Disorder, Hx Depression, Hx Schizophrenia Past Surgical History: Reports: Hx Cardiac Catheterization, Hx Section , Hx Coronary Stent - x1; June 2015, Hx Hysterectomy, Hx Orthopedic Surgery - B/L ANKLE REPAIR S/P FRACTURE, Hx Vascular Surgery - Bilateral carotid endarterectomies, Other - R BREAST LUMPECTOMY; cervical spine nerve shaft tumor removal - Immunizations Immunizations up to date: No Hx Diphtheria, Pertussis, Tetanus Vaccination: Yes History of Influenza Vaccine for 02/2017 - 07/2017 Season: No Physical Exam - Vital signs Vitals: Temp Pulse Resp BP Pulse Ox 98.2 F 101 H 16 203/90 H 97 03/29/18 14:59 03/29/18 14:59 03/29/18 14:59 03/29/18 14:59 03/29/18 14:59 Course - Vital Signs Vital signs: Temp Pulse Resp BP Pulse Ox 98.2 F 101 H 16 203/90 H 97 03/29/18 14:59 03/29/18 14:59 03/29/18 14:59 03/29/18 14:59 03/29/18 14:59
[2018-03-29 15:35] LABS: ABSOLUTE BASOPHILS # (AUTO) 0.1 10^3/uL (0.0-0.2); ABSOLUTE EOSINOPHILS # (AUTO) 0.4 10^3/uL (0.0-0.6); ABSOLUTE LYMPHOCYTES (AUTO) 2.9 10^3/uL (0.5-4.7); ABSOLUTE MONOCYTES (AUTO) 1.2 10^3/uL (0.1-1.4); ABSOLUTE NEUT (AUTO) 7.6 10^3/uL (1.7-8.2); BASOPHILS % (AUTO) 0.6 % (0-2); EOSINOPHILS % (AUTO) 3.6 % (0-6); HEMATOCRIT 44.9 % (36.0-47.0); LYMPHOCYTES % (AUTO) 23.6 % (13-45); MEAN CORPUSCULAR HEMOGLOBIN 30.7 pg (27.0-33.4); MEAN CORPUSCULAR HGB CONC 33.5 g/dL (32.0-36.0); MEAN CORPUSCULAR VOLUME 92 fl (80-97); MONOCYTES % (AUTO) 9.7 % (3-13); PLATELET COUNT 289 10^3/uL (150-450); RED BLOOD COUNT 4.89 10^6/uL (3.72-5.28); RED CELL DISTRIBUTION WIDTH 13.2 % (11.5-14.0); SEGMENTED NEUTROPHILS % (AUTO) 62.5 % (42-78); TOTAL CELLS COUNTED % (AUTO) 100 %; WHITE BLOOD COUNT 12.2 10^3/uL (4.0-10.5)
[2018-03-29 15:51] LABS: ALANINE AMINOTRANSFERASE 58 U/L (9-52); ALKALINE PHOSPHATASE 134 U/L (38-126); ANION GAP 17 (5-19); ASPARTATE AMINO TRANSFERASE 37 U/L (14-36); BILIRUBIN,DIRECT 0.4 mg/dL (0.0-0.4); BILIRUBIN,TOTAL 0.4 mg/dL (0.2-1.3); BLOOD UREA NITROGEN 17 mg/dL (7-20); CALCIUM 9.9 mg/dL (8.4-10.2); CARBON DIOXIDE 24 mmol/L (22-30); CHLORIDE 101 mmol/L (98-107); CREATINE KINASE 59 U/L (30-135); GLUCOSE 97 mg/dL (75-110); SODIUM 141.6 mmol/L (137-145); TOTAL PROTEIN 8.4 g/dL (6.3-8.2)
[2018-03-29] MEDS ORDERED: NITROGLYCERIN 0.4 MG/TAB 25 TAB/BOTTLE SL PRN (15:56)
[2018-03-29 16:03] LABS: CREATINE KINASE MB 1.24 ng/mL (<4.55); TROPONIN I 0.013 ng/mL
--- NOTE | 2018-03-29 16:25 | ER Document Report ---
ED General - General Chief Complaint: Chest Pain Stated Complaint: CHEST DISCOMFORT Time Seen by Provider: 03/29/18 15:08 Mode of Arrival: Ambulatory Notes: Patient is a 52-year-old female that presents to the emergency department for chief complaint of chest pain. The patient reports that the pain started this morning. The currently rate the pain as 2 out of 10, and described as pressure and ache in the middle of the chest. They have had associated shortness of breath, seemingly worse with exertion. Denies any diaphoresis or nausea. Their risk factors for heart disease include CAD, stenting in 2016, hypertension , hyperlipidemia, smoking history and obesity. She does report taking baby aspirin earlier today. She is also complaining of a holocephalic headache, she has been having since this morning as well, she rates the headache as a 5 out of 10, she has been noting that her blood pressure has been elevated at home as well, she states that it was 275 systolic yesterday. She reports being compliant with her home blood pressure medications. Past Medical History: CAD, GERD, ulcerative esophagitis, hypertension, asthma Past Surgical History: Carotid endarterectomy x3, PCI with stenting, Social History: Admits to smoking cigarettes daily, denies current alcohol or drug use. Family History: Reviewed and noncontributory for presenting illness Allergies: Reviewed, see documented allergy list. REVIEW OF SYSTEMS: Other than noted above, the 12 point review of systems was reviewed with the patient and were negative, all pertinent findings are included in the HPI. PHYSICAL EXAMINATION: Vital signs reviewed, nursing noted reviewed. GENERAL: Well-appearing, well-nourished and in no acute distress. HEAD: Atraumatic, normocephalic. EYES: Eyes appear normal, extraocular movements intact, sclera anicteric, conjunctiva are normal. ENT: nares patent, oropharynx clear without exudates. Moist mucous membranes. NECK: Normal range of motion, supple without lymphadenopathy LUNGS: Breath sounds clear to auscultation bilaterally and equal. No wheezes rales or rhonchi. No chest wall tenderness HEART: Regular rate and rhythm without murmurs ABDOMEN: Soft, nontender, normoactive bowel sounds. No rebound, guarding, or rigidity. No masses appreciated. EXTREMITIES: Nontender, good range of motion, no pitting or edema. NEUROLOGICAL: No focal neurological deficits. Moves all extremities spontaneously Motor and sensory grossly intact on exam. PSYCH: Normal mood, normal affect. SKIN: Warm, Dry, normal turgor, no rashes or lesions noted on exposed skin TRAVEL OUTSIDE OF THE [place] IN LAST 30 DAYS: No - Related Data Allergies/Adverse Reactions: tetracycline [Tetracycline] Allergy (Verified 03/29/18 14:24) Past Medical History - General Information source: Patient - Social History Smoking Status: Current Every Day Smoker Family History: CAD - both parents, Hypertension, Malignancy Patient has suicidal ideation: No Patient has homicidal ideation: No - Past Medical History Cardiac Medical History: Reports: Hx Coronary Artery Disease, Hx Heart Attack, Hx Hypercholesterolemia, Hx Hypertension Denies: Hx Congestive Heart Failure Pulmonary Medical History: Denies: Hx Asthma, Hx Bronchitis, Hx COPD, Hx Pneumonia, Hx Tuberculosis Neurological Medical History: Reports: Hx Seizures - 09/2015 x1 while admitted; not medicated Endocrine Medical History: Denies: Hx Diabetes Mellitus Type 2 Renal/ Medical History: Denies: Hx End Stage Renal Disease, Hx Kidney Stones, Hx Peritoneal Dialysis GI Medical History: Reports: Hx Gastroesophageal Reflux Disease, Hx Ulcer. Denies: Hx Cirrhosis Musculoskeletal Medical History: Reports Hx Arthritis, Denies Hx Multiple Sclerosis Psychiatric Medical History: Denies: Hx Bipolar Disorder, Hx Depression, Hx Schizophrenia Past Surgical History: Reports: Hx Cardiac Catheterization, Hx Section , Hx Coronary Stent - x1; June 2015, Hx Hysterectomy, Hx Orthopedic Surgery - B/L ANKLE REPAIR S/P FRACTURE, Hx Vascular Surgery - Bilateral carotid endarterectomies, Other - R BREAST LUMPECTOMY; cervical spine nerve shaft tumor removal - Immunizations Immunizations up to date: No Hx Diphtheria, Pertussis, Tetanus Vaccination: Yes Physical Exam - Vital signs Vitals: Temp Pulse Resp BP Pulse Ox 98.2 F 101 H 16 203/90 H 97 03/29/18 14:59 03/29/18 14:59 03/29/18 14:59 03/29/18 14:59 03/29/18 14:59 Course - Re-evaluation Re-evalutation: Patient seen and examined vital signs reviewed. Laboratory data and imaging were ordered as appropriate for the patient's presenting symptoms and complaint, with consideration of any critical or life threatening conditions that may be associated with their obtained history and exam as noted above. Patient was treated with clonidine and aspirin ordered by triage provider. Results were reviewed when available and demonstrated negative initial troponin , negative chest x-ray, head CT negative as well The patient was re-evaluated and was stable, blood pressure was improving, to 123/107 after single dose of clonidine. Heart rate improved as well to the mid 80s Evaluation was most consistent with chest pain, nonspecific, but I feel this patient is high risk, and will need evaluation to rule out for ACS, with serial troponin testing, given prior history of cardiac stenting, peripheral vascular disease, smoking history and other multiple risk factors Results were discussed with the patient at this point after careful consideration I feel that that patient should be admitted to the hospital. This was discussed with the patient that it is in the best interest for their care to be admitted for further evaluation and management. Patient agreed with this plan of care. A call was placed to the admitted physician, Dr. Jenkins who graciously accepted the patient onto their service. *Note is created using voice recognition software and may contain spelling, syntax or grammatical errors. Laboratory 03/29/18 03/29/18 03/29/18 15:20 15:20 15:20 WBC 12.2 H RBC 4.89 Hgb 15.0 Hct 44.9 MCV 92 MCH 30.7 MCHC 33.5 RDW 13.2 Plt Count 289 Seg Neutrophils % 62.5 Lymphocytes % 23.6 Monocytes % 9.7 Eosinophils % 3.6 Basophils % 0.6 Absolute Neutrophils 7.6 Absolute Lymphocytes 2.9 Absolute Monocytes 1.2 Absolute Eosinophils 0.4 Absolute Basophils 0.1 Sodium 141.6 Potassium 5.0 Chloride 101 Carbon Dioxide 24 Anion Gap 17 BUN 17 Creatinine 0.77 Est GFR ( Amer) > 60 Est GFR (Non-Af Amer) > 60 Glucose 97 Calcium 9.9 Total Bilirubin 0.4 Direct Bilirubin 0.4 Neonat Total Bilirubin Not Reportable Neonat Direct Bilirubin Not Reportable Neonat Indirect Bili Not Reportable AST 37 H ALT 58 H Alkaline Phosphatase 134 H Creatine Kinase 59 CK-MB (CK-2) 1.24 Troponin I 0.013 Total Protein 8.4 H Albumin 5.0 Chest X-Ray 03/29/18 15:09 IMPRESSION: NO SIGNIFICANT RADIOGRAPHIC FINDING IN THE CHEST. Head CT 03/29/18 16:23 IMPRESSION: No acute intracranial hemorrhage or acute territorial infarct. - Vital Signs Vital signs: Temp Pulse Resp BP Pulse Ox 98.2 F 101 H 16 203/90 H 97 03/29/18 14:59 03/29/18 14:59 03/29/18 14:59 03/29/18 14:59 03/29/18 14:59 - Laboratory Result Diagrams: 03/29/18 15:20 03/29/18 15:20 Laboratory results interpreted by me: 03/29/18 03/29/18 15:20 15:20 WBC 12.2 H AST 37 H ALT 58 H Alkaline Phosphatase 134 H Total Protein 8.4 H - EKG Interpretation by Me Additional EKG results interpreted by me: EKG demonstrates sinus tachycardia with a ventricular rate of 101 bpm, normal axis, normal intervals, there is a nonspecific T wave inversion in lead aVL, small Q waves in leads II, III and aVF this is compared with prior EKG from 2017, without significant change. Discharge - Discharge Clinical Impression: Hypertensive urgency Chest pain Qualifiers: Chest pain type: unspecified Qualified Code(s): R07.9 - Chest pain, unspecified Condition: Stable Disposition: ADMITTED OBSERVATION Admitting Provider: Hospitalist - Dr. Jenkins Unit Admitted: Telemetry
--- NOTE | 2018-03-29 17:04 | RADIOLOGY REPORT (SQ) ---
EXAM DESCRIPTION: CHEST 2 VIEWS COMPLETED DATE/TIME: 03/29/2018 4:45 pm REASON FOR STUDY: cp COMPARISON: 2017 TECHNIQUE: Frontal and lateral radiographic views of the chest acquired. NUMBER OF VIEWS: Two view. LIMITATIONS: None. FINDINGS: LUNGS AND PLEURA: No opacities, masses or pneumothorax. No pleural effusion. MEDIASTINUM AND HILAR STRUCTURES: No masses or contour abnormalities. HEART AND VASCULAR STRUCTURES: Heart normal size. No evidence for failure. BONES: No acute findings. HARDWARE: None in the chest. OTHER: No other significant finding. IMPRESSION: NO SIGNIFICANT RADIOGRAPHIC FINDING IN THE CHEST. TECHNICAL DOCUMENTATION: JOB ID: [id number] [employer]- All Rights Reserved Reading location - IP/workstation name: [email or web address]
--- NOTE | 2018-03-29 17:08 | RADIOLOGY REPORT (SQ) ---
EXAM DESCRIPTION: CT HEAD WITHOUT COMPLETED DATE/TIME: 03/29/2018 4:37 pm REASON FOR STUDY: HEADACHE COMPARISON: None. TECHNIQUE: Axial images acquired through the brain without intravenous contrast. Images reviewed wi th bone, brain and subdural windows. Images stored on PACS. All CT scanners at this facility use dose modulation, iterative reconstruction, and/or weight based d osing when appropriate to reduce radiation dose to as low as reasonably achievable (ALARA). [facility]: Dose Right [facility]: SureCare [facility]: Dose Right [facility]: Teradose 4D [facility]: Smart Livevol RADIATION DOSE: CT Rad equipment meets quality standard of care and radiation dose reduction techniq ues were employed. CTDIvol: 53.2 mGy. DLP: 1017 mGy-cm. mGy. LIMITATIONS: None. FINDINGS: VENTRICLES: Normal size and contour. CEREBRUM: No mass effect. No hemorrhage. No midline shift. Normal [place]/white matter differentiatio n. No evidence for acute territorial infarction. CEREBELLUM: No mass effect. No hemorrhage. No alteration of density. No evidence for acute infarct ion. EXTRAAXIAL SPACES: No fluid collections. ORBITS AND GLOBE: Symmetrical contour of the globes. CALVARIUM: No depressed skull fracture. PARANASAL SINUSES: No air-fluid level. SOFT TISSUES: No hematoma. IMPRESSION: No acute intracranial hemorrhage or acute territorial infarct. TECHNICAL DOCUMENTATION: JOB ID: [id number] [id number] [id number]: Final reports with documentation of one or more dose reduction techniques (e.g., Automate d exposure control, adjustment of the mA and/or kV according to patient size, use of iterative recons truction technique) 2010 [employer]- All Rights Reserved Reading location - IP/workstation name: [email or web address]
[2018-03-29] MEDS ORDERED: ACETAMINOPHEN 325 MG TABLET PO PRN (17:44)
--- NOTE | 2018-03-29 17:50 | EKG REPORT ---
SEVERITY:- BORDERLINE ECG - SINUS TACHYCARDIA PROBABLE LEFT ATRIAL ABNORMALITY BORDERLINE INFERIOR Q WAVES : Confirmed by: Beck Henry MD 29-Mar-2018 17:49:50
--- NOTE | 2018-03-29 18:02 | PDOC PROGRESS REPORT ---
Subjective Progress Note for:: 03/29/18 Subjective:: Ms. Concepcion is a 52 yr old female with a PMH of CAD with prior PCI and stenting x 1, history of bilateral endarterectomy and left carotid stenting, ulcerative esophagitis, hypertension, and questionable asthma who presented with chest pain. She says she woke up around 8 am today and had chest discomfort which she described as achy with some "heartburn" component. Pain is non radiating and was non-exertional. She says her pain was already abating when she came to the ER and it did continue to improve with aspirin. She is currently chest pain free. She had a stress testing done in June this year which was normal. She says she has chronic SOB which has going on for years. She continues to smoke. In the ER, BP was initially 203/90 and she was given a dose of clonidine which dropped her BP to 110/80. Reason For Visit: CHEST DISCOMFORT Physical Exam Vital Signs: Temp Pulse Resp BP Pulse Ox 98.2 F 101 H 16 203/90 H 97 03/29/18 14:59 03/29/18 14:59 03/29/18 14:59 03/29/18 14:59 03/29/18 14:59 General appearance: PRESENT: no acute distress, well-developed, well-nourished Head exam: PRESENT: atraumatic, normocephalic Eye exam: PRESENT: conjunctiva pink, EOMI, PERRLA. ABSENT: scleral icterus Ear exam: PRESENT: normal external ear exam Mouth exam: PRESENT: moist, tongue midline Neck exam: ABSENT: carotid bruit, JVD, lymphadenopathy, thyromegaly Respiratory exam: PRESENT: clear to auscultation [place]. ABSENT: rales, rhonchi, wheezes Cardiovascular exam: PRESENT: RRR. ABSENT: diastolic murmur, rubs, systolic murmur Pulses: PRESENT: normal dorsalis pedis pul GI/Abdominal exam: PRESENT: normal bowel sounds, soft. ABSENT: distended, guarding, mass, organolmegaly, rebound, tenderness Rectal exam: PRESENT: deferred Neurological exam: PRESENT: alert, awake, oriented to person, oriented to place , oriented to time, oriented to situation, CN II-XII grossly intact. ABSENT: motor sensory deficit Results Laboratory Results: 03/29/18 15:20 03/29/18 15:20 03/29/18 03/29/18 15:20 15:20 WBC 12.2 H RBC 4.89 Hgb 15.0 Hct 44.9 MCV 92 MCH 30.7 MCHC 33.5 RDW 13.2 Plt Count 289 Seg Neutrophils % 62.5 Lymphocytes % 23.6 Monocytes % 9.7 Eosinophils % 3.6 Basophils % 0.6 Absolute Neutrophils 7.6 Absolute Lymphocytes 2.9 Absolute Monocytes 1.2 Absolute Eosinophils 0.4 Absolute Basophils 0.1 Sodium 141.6 Potassium 5.0 Chloride 101 Carbon Dioxide 24 Anion Gap 17 BUN 17 Creatinine 0.77 Est GFR ( Amer) > 60 Est GFR (Non-Af Amer) > 60 Glucose 97 Calcium 9.9 Total Bilirubin 0.4 AST 37 H ALT 58 H Alkaline Phosphatase 134 H Total Protein 8.4 H Albumin 5.0 03/29/18 03/29/18 15:20 15:20 Creatine Kinase 59 CK-MB (CK-2) 1.24 Troponin I 0.013 Impressions: Chest X-Ray 03/29/18 15:09 IMPRESSION: NO SIGNIFICANT RADIOGRAPHIC FINDING IN THE CHEST. Head CT 03/29/18 16:23 IMPRESSION: No acute intracranial hemorrhage or acute territorial infarct. Assessment & Plan - Diagnosis (1) Chest pain Qualifiers: Chest pain type: unspecified Qualified Code(s): R07.9 - Chest pain, unspecified Is this a current diagnosis for this admission?: Yes Plan: Atypical chest pain. Patient is currently chest pain free. She does have a history of CAD with prior stenting but also has a history of ulcerative esophagitis. She had a normal stress test in June 2017. EKG is negative for acute changes. Troponin is 0.013. Will continue to cycle troponins and EKG. (2) Hypertension Qualifiers: Hypertension type: unspecified Qualified Code(s): I10 - Essential (primary ) hypertension Is this a current diagnosis for this admission?: Yes Plan: Blood pressure dropped to 110/90 after a dose of clonidine. Will hold home meds for now and will resume antihypertensives based on next blood pressure readings. (3) Carotid stenosis Qualifiers: Laterality: bilateral Qualified Code(s): I65.23 - Occlusion and stenosis of bilateral carotid arteries Is this a current diagnosis for this admission?: Yes Plan: Resume aspirin and statin. (4) Coronary artery disease Qualifiers: Coronary Disease-Associated Artery/Lesion type: [place] artery [place] vs. transplanted heart: [place] heart Associated angina: angina presence unspecified Qualified Code(s): I25.10 - Atherosclerotic heart disease of [place] coronary artery without angina pectoris Is this a current diagnosis for this admission?: Yes Plan: Resume aspirin and statin. (5) Ulcerative esophagitis Is this a current diagnosis for this admission?: Yes Plan: Patient says she had an EGD in 2016 and was noted to have ulcerative esophagitis. She has been off sucralfate and PPI for months. Will add Protonix. - Time Time Spent with patient: 15-24 minutes
[2018-03-29] MEDS: HYDROCHLOROTHIAZIDE 12.5 MG TABLET PO SCH (18:09)
[2018-03-29] MEDS: HEPARIN SOD (PORCINE) 5,000 UNIT/ML 1 ML SYRINGE SUBCUT SCH (21:15)
[2018-03-29] MEDS: SUCRALFATE 1 GM TABLET PO SCH (21:55)
[2018-03-29] MEDS ORDERED: ATORVASTATIN CALCIUM 80 MG TABLET PO SCH (22:00)
[2018-03-30] MEDS: HEPARIN SOD (PORCINE) 5,000 UNIT/ML 1 ML SYRINGE SUBCUT SCH ×2 (06:39→17:15)
[2018-03-30] MEDS: SUCRALFATE 1 GM TABLET PO SCH ×3 (08:47→17:14)
[2018-03-30] MEDS ORDERED: ASPIRIN 81 MG TABLET, CHEWABLE PO SCH (10:00)
[2018-03-30] MEDS ORDERED: NICOTINE 14 MG/24 HR PATCH.TD24 TD SCH (10:00)
[2018-03-30] MEDS ORDERED: FENOFIBRATE NANOCRYSTALLIZED 145 MG TABLET PO SCH (10:00)
[2018-03-30] MEDS ORDERED: CLOPIDOGREL BISULFATE 75 MG TABLET PO SCH (10:00)
[2018-03-30] MEDS ORDERED: LISINOPRIL 10 MG TABLET PO SCH (10:00)
--- NOTE | 2018-03-30 10:33 | EKG REPORT ---
SEVERITY:- ABNORMAL ECG - SINUS RHYTHM PROBABLE LEFT ATRIAL ABNORMALITY NONSPECIFIC T ABNORMALITIES, LATERAL LEADS : Confirmed by: Noble Haines 30-Mar-2018 10:32:58
[2018-03-30] MEDS: HYDROCHLOROTHIAZIDE 12.5 MG TABLET PO SCH ×2 (11:10→17:14)
--- NOTE | 2018-03-30 12:49 | DRAGON STRESS TEST REPORT ---
INTRAVENOUS LEXISCAN CARDIOLITE STRESS TEST USING SINGLE PHOTON EMMISION COMPUTERIZED TOMOGRAPHIC. DATE OF PROCEDURE: March 30, 2018, INDICATION : Chest pain CARDIAC RISK FACTORS: Diabetes, hypertension, dyslipidemia, history of coronary stent RESTING EKG: Sinus rhythm, no baseline ST-T wave changes noted. STRESS EKG: No significant ST segment changes noted with LexiScan bolus REASON FOR TERMINATION: Protocol. PROCEDURE REPORT: Baseline heart rate 90 beats per minute with blood pressure of 196/74. Patient had no significant complaints. Patient was bolused with Lexiscan 0.4 mg intravenously followed by saline bolus. Heart rate at 2 minutes post bolus 112 with a blood pressure of 199/74. 3 minutes post bolus heart rate 107 with blood pressure of 203/65. No significant EKG changes were noted. Patient had no significant complaints during the procedure or postprocedure. CONCLUSIONS: Normal EKG and hemodynamic response to IV LexiScan. NUCLEAR DATA: At rest the patient was given 14.95 millicuries of technetium 99 sestamibi injected intravenously. As per protocol rest gated SPECT images were obtained. On day of stress test, the patient was given intravenous LexiScan at a dose of 0.4 mg in 5 mL intravenously, followed by flush with normal saline. Subsequently the stress dose of 45.7 millicuries of technetium 99 sestamibi was injected intravenously. As per protocol stress gated images were obtained. NUCLEAR INTERPRETATION: Both raw and processed data were used for interpretation. Visual, qualitative, computer-generated quantitative data was used. There was good myocardial uptake of technetium compound. Motion artifact and soft tissue attenuations were noted. Increased visceral uptake was noted. Significant breast attenuation artifact was noted. No definitive areas of transient perfusion defect noted, except for borderline decreased uptake in the stress imaging, SDS of 1, felt to be related mostly to differences in breast attenuation artifact. [place] to be not significant. No definitive areas of fixed perfusion defect or scars noted. EKG gated imaging showed LV EF at 52 %, rest and stress gated EF similar visually. T. I D. ratio was 1.08. Lung heart ratio noted to be within normal limits 0.29. No significant extracardiac and abnormal radiotracer activities were noted. RV free wall uptake was noted to be WNL. IMPRESSION: Also refer to comments under nuclear interpretation. Also test results needs to be interpreted in the context of pretest probability. 1. No definitive areas of transient perfusion defect noted,except for borderline decreased uptake in the stress imaging, SDS of 1, felt to be related mostly to differences in breast attenuation artifact. [place] to be not significant. 2. There is no definitive scintigraphic evidence of myocardial infarction/scar. 3. EKG gated imaging shows left ventricular ejection fraction of approx. 52 %. 4. Clinical correlation requested as worse disease and or balanced ischemia could be missed. In approximately 10% of the cases Lexiscan may not cause adequate vasodilatory stress. RECOMMENDATIONS: Recommend adequate control of blood pressure. Aggressive risk factor modification and medical management. Further evaluation may be needed if continued symptoms or other high risk indicators are noted on clinical evaluation. Close cardiology follow-up is also recommended. Clinical correlation with echocardiogram derived ejection fraction. Inability to exercise by itself can lead to increased cardiovascular event risks. Consider cardiology consultation and or follow-up if clinically indicated. I am available for cardiology evaluation and consultation if requested by the quarter supervisor, unless patient already has a dance professor. Dr. Zabrina Haines. MRCP Board certified in cardiology and sleep medicine. Board certified in nuclear cardiology, adult echocardiography. VINNIE
[2018-03-30] MEDS ORDERED: AMINOPHYLLINE INJ/PF 250 MG/10 ML SDV IV ONE (14:18)
[2018-03-30] MEDS ORDERED: REGADENOSON INJ 0.4 MG/5 ML DISP.SYRIN IV ONE (14:18)
--- NOTE | 2018-03-30 15:09 | PDOC H&P ---
History of Present Illness Admission Date/PCP: 03/29/18 17:54 Patient complains of: chest pain History of Present Illness: Note: The original H&P done yesterday was erroneously entered as progress note. Ms. Concepcion is a 52 yr old female with a PMH of CAD with prior PCI and stenting x 1, history of bilateral endarterectomy and left carotid stenting, ulcerative esophagitis, hypertension, and questionable asthma who presented with chest pain. She says she woke up around 8 am today and had chest discomfort which she described as achy with some "heartburn" component. Pain is non radiating and was non-exertional. She says her pain was already abating when she came to the ER and it did continue to improve with aspirin. She is currently chest pain free. She had a stress testing done in June this year which was normal. She says she has chronic SOB which has going on for years. She continues to smoke. In the ER, BP was initially 203/90 and she was given a dose of clonidine which dropped her BP to 110/80. Past Medical History Cardiac Medical History: Reports: Coronary Artery Disease, Myocardial Infarction , Hyperlipidema, Hypertension Denies: Congestive Heart Failure Pulmonary Medical History: Denies: Asthma, Bronchitis, Chronic Obstructive Pulmonary Disease (COPD), Pneumonia, Tuberculosis Neurological Medical History: Reports: Seizures - 09/2015 x1 while admitted; not medicated Endocrine Medical History: Denies: Diabetes Mellitus Type 2 Renal/ Medical History: Denies: End Stage Renal Disease GI Medical History: Reports: Gastroesophageal Reflux Disease Denies: Cirrhosis Musculoskeltal Medical History: Reports: Arthritis Psychiatric Medical History: Denies: Bipolar Disorder, Depression Hematology: Reports: Anemia Denies: Bleeding Tendencies Past Surgical History Past Surgical History: Reports: Cardiac Catheterization, Section, Coronary Stent - x1; June 2015, Hysterectomy, Orthopedic Surgery - B/L ANKLE REPAIR S/P FRACTURE, Vascular Surgery - Bilateral carotid endarterectomies , Other - R BREAST LUMPECTOMY; cervical spine nerve shaft tumor removal Social History Smoking Status: Current Every Day Smoker Cigarettes Packs Per Day: 1 Number of Years Smokin Last Time Smoked: 03-29-2018 Frequency of Alcohol Use: None Hx Recreational Drug Use: No Drugs: None Hx Prescription Drug Abuse: No Family History Family History: CAD - both parents, Hypertension, Malignancy Parental Family History Reviewed: Yes - no premature CAD Children Family History Reviewed: No Sibling(s) Family History Reviewed.: No Medication/Allergy Home Medications: Aspirin [Aspirin 81 mg Chewable Tablet] 81 mg PO DAILY 03/30/18 Atorvastatin Calcium [Lipitor 80 mg Tablet] 80 mg PO QHS 03/30/18 Clopidogrel Bisulfate [Plavix 75 mg Tablet] 75 mg PO DAILY 03/30/18 Fenofibrate Nanocrystallized [Tricor 145 mg Tablet] 145 mg PO DAILY #30 tablet 03/30/18 Fish Oil/Dha/Epa [Fish Oil 1,200 mg Fish Oil] 3 each PO DAILY 03/30/18 Lisinopril [Prinivil 40 mg Tablet] 40 mg PO DAILY #30 tablet 03/30/18 Metoprolol Tartrate [Lopressor 25 mg Tablet] 25 mg PO BID #60 tablet 03/30/18 Sucralfate [Carafate 1 gm Tablet] 1 gm PO ACHS #60 tablet 03/30/18 Allergies/Adverse Reactions: tetracycline [Tetracycline] Allergy (Verified 03/29/18 14:24) Review of Systems All systems: reviewed and no additional remarkable complaints except as stated - as mentioned in HPI Physical Exam Vital Signs: Temp Pulse Resp BP Pulse Ox 97.8 F 91 20 183/71 H 99 03/30/18 10:14 03/30/18 14:00 03/30/18 10:14 03/30/18 10:14 03/30/18 10:14 Intake & Output 03/29/18 03/30/18 03/31/18 06:59 06:59 06:59 Intake Total 225 Balance 225 Weight 190 lb 0.615 oz General appearance: PRESENT: no acute distress, well-developed, well-nourished Head exam: PRESENT: atraumatic, normocephalic Eye exam: PRESENT: conjunctiva pink, EOMI, PERRLA. ABSENT: scleral icterus Ear exam: PRESENT: normal external ear exam Mouth exam: PRESENT: moist, tongue midline Neck exam: ABSENT: carotid bruit, JVD, lymphadenopathy, thyromegaly Respiratory exam: PRESENT: clear to auscultation [place]. ABSENT: rales, rhonchi, wheezes Cardiovascular exam: PRESENT: RRR. ABSENT: diastolic murmur, rubs, systolic murmur Pulses: PRESENT: normal dorsalis pedis pul GI/Abdominal exam: PRESENT: normal bowel sounds, soft. ABSENT: distended, guarding, mass, organolmegaly, rebound, tenderness Rectal exam: PRESENT: deferred Neurological exam: PRESENT: alert, awake, oriented to person, oriented to place , oriented to time, oriented to situation, CN II-XII grossly intact. ABSENT: motor sensory deficit Results Laboratory Results: 03/29/18 03/30/18 21:56 04:58 Troponin I < 0.012 < 0.012 Impressions: Chest X-Ray 03/29/18 15:09 IMPRESSION: NO SIGNIFICANT RADIOGRAPHIC FINDING IN THE CHEST. Head CT 03/29/18 16:23 IMPRESSION: No acute intracranial hemorrhage or acute territorial infarct. Assessment & Plan - Diagnosis (1) Chest pain Qualifiers: Chest pain type: unspecified Qualified Code(s): R07.9 - Chest pain, unspecified Is this a current diagnosis for this admission?: Yes Plan: Atypical chest pain. Patient is currently chest pain free. She does have a history of CAD with prior stenting but also has a history of ulcerative esophagitis. She had a normal stress test in June 2017. EKG is negative for acute changes. Troponin is 0.013. Will continue to cycle troponins and EKG. (2) Hypertension Qualifiers: Hypertension type: unspecified Qualified Code(s): I10 - Essential (primary ) hypertension Is this a current diagnosis for this admission?: Yes Plan: Blood pressure dropped to 110/90 after a dose of clonidine. Will hold home meds for now and will resume antihypertensives based on next blood pressure readings. (3) Carotid stenosis Qualifiers: Laterality: bilateral Qualified Code(s): I65.23 - Occlusion and stenosis of bilateral carotid arteries Is this a current diagnosis for this admission?: Yes Plan: Resume aspirin and statin. (4) Coronary artery disease Qualifiers: Coronary Disease-Associated Artery/Lesion type: [place] artery [place] vs. transplanted heart: [place] heart Associated angina: angina presence unspecified Qualified Code(s): I25.10 - Atherosclerotic heart disease of [place] coronary artery without angina pectoris Is this a current diagnosis for this admission?: Yes Plan: Resume aspirin and statin. (5) Ulcerative esophagitis Is this a current diagnosis for this admission?: Yes Plan: Patient says she had an EGD in 2015 and was noted to have ulcerative esophagitis. She has been off sucralfate and PPI for months. Will add Protonix. - Time Time Spent: 30 to 50 Minutes
--- NOTE | 2018-03-30 15:14 | PDOC DISCHARGE SUMMARY ---
General - Admit/Disc Date/PCP Admission Date/Primary Care Provider: 03/29/18 17:54 Discharge Date: 03/30/18 - Discharge Diagnosis (1) Chest pain Is this a current diagnosis for this admission?: Yes (2) Hypertension Is this a current diagnosis for this admission?: Yes (3) Carotid stenosis Is this a current diagnosis for this admission?: Yes (4) Coronary artery disease Is this a current diagnosis for this admission?: Yes (5) Ulcerative esophagitis Is this a current diagnosis for this admission?: Yes - Additional Information Prescriptions: Fenofibrate Nanocrystallized [Tricor 145 mg Tablet] 145 mg PO DAILY #30 tablet Lisinopril [Prinivil 40 mg Tablet] 40 mg PO DAILY #30 tablet Metoprolol Tartrate [Lopressor 25 mg Tablet] 25 mg PO BID #60 tablet Sucralfate [Carafate 1 gm Tablet] 1 gm PO ACHS #60 tablet Home Medications: Aspirin [Aspirin 81 mg Chewable Tablet] 81 mg PO DAILY 03/30/18 Atorvastatin Calcium [Lipitor 80 mg Tablet] 80 mg PO QHS 03/30/18 Clopidogrel Bisulfate [Plavix 75 mg Tablet] 75 mg PO DAILY 03/30/18 Fenofibrate Nanocrystallized [Tricor 145 mg Tablet] 145 mg PO DAILY #30 tablet 03/30/18 Fish Oil/Dha/Epa [Fish Oil 1,200 mg Fish Oil] 3 each PO DAILY 03/30/18 Lisinopril [Prinivil 40 mg Tablet] 40 mg PO DAILY #30 tablet 03/30/18 Metoprolol Tartrate [Lopressor 25 mg Tablet] 25 mg PO BID #60 tablet 03/30/18 Sucralfate [Carafate 1 gm Tablet] 1 gm PO ACHS #60 tablet 03/30/18 History of Present Illness History of Present Illness: Note: The original H&P done yesterday was erroneously entered as progress note. Ms. Concepcion is a 52 yr old female with a PMH of CAD with prior PCI and stenting x 1, history of bilateral endarterectomy and left carotid stenting, ulcerative esophagitis, hypertension, and questionable asthma who presented with chest pain. She says she woke up around 8 am today and had chest discomfort which she described as achy with some "heartburn" component. Pain is non radiating and was non-exertional. She says her pain was already abating when she came to the ER and it did continue to improve with aspirin. She is currently chest pain free. She had a stress testing done in June this year which was normal. She says she has chronic SOB which has going on for years. She continues to smoke. In the ER, BP was initially 203/90 and she was given a dose of clonidine which dropped her BP to 110/80. Hospital Course Hospital Course: Ms. Mckeon was admitted for chest pain. She has been chest pain free since admission. She does have a history of CAD with prior stenting but also has a history of ulcerative esophagitis. She had a normal stress test in June 2017. EKG is negative for acute changes. First troponin is 0.013. Subsequent troponins normalized. She went for a stress test which came back normal. Her echo showed normal EF with mild diastolic dysfunction. She has been off her PPI and sucralfate for months for her ulcerative esophagitis. She was placed back on this. She was recommended to ff-up with her PCP and GI for re-evaluation if she needs a repeat EGD for her chest pain as she did say she had a closely similar symptom when she was diagnosed with the esophagitis. She also has chronic hypertension which improved on day of discharge. She will continue lisinopril at 40 mg daily but Lopressor was increased to 25 mg bid. Physical Exam Vital Signs: Temp Pulse Resp BP Pulse Ox 97.8 F 91 20 183/71 H 99 03/30/18 10:14 03/30/18 14:00 03/30/18 10:14 03/30/18 10:14 03/30/18 10:14 Intake & Output 03/29/18 03/30/18 03/31/18 06:59 06:59 06:59 Intake Total 225 Balance 225 Weight 190 lb 0.615 oz General appearance: PRESENT: no acute distress, well-developed, well-nourished Head exam: PRESENT: atraumatic, normocephalic Eye exam: PRESENT: conjunctiva pink, EOMI, PERRLA. ABSENT: scleral icterus Ear exam: PRESENT: normal external ear exam Mouth exam: PRESENT: moist, tongue midline Neck exam: ABSENT: carotid bruit, JVD, lymphadenopathy, thyromegaly Respiratory exam: PRESENT: clear to auscultation [place]. ABSENT: rales, rhonchi, wheezes Cardiovascular exam: PRESENT: RRR. ABSENT: diastolic murmur, rubs, systolic murmur Pulses: PRESENT: normal dorsalis pedis pul GI/Abdominal exam: PRESENT: normal bowel sounds, soft. ABSENT: distended, guarding, mass, organolmegaly, rebound, tenderness Rectal exam: PRESENT: deferred Neurological exam: PRESENT: alert, awake, oriented to person, oriented to place , oriented to time, oriented to situation, CN II-XII grossly intact. ABSENT: motor sensory deficit Results Laboratory Results: 03/29/18 03/30/18 21:56 04:58 Troponin I < 0.012 < 0.012 Impressions: Chest X-Ray 03/29/18 15:09 IMPRESSION: NO SIGNIFICANT RADIOGRAPHIC FINDING IN THE CHEST. Head CT 03/29/18 16:23 IMPRESSION: No acute intracranial hemorrhage or acute territorial infarct. Qualifiers - * PATIENT BEING DISCHARGED WITH ANY OF THE FOLLOWING DIAGNOSIS: No
--- NOTE | 2018-03-30 17:44 | XCELERA REPORT ---
[address] [address] Transthoracic Echocardiogram Report Name: KATERINE FALL Age: 52 yrs Gender: Female : 1965 Patient Status: Inpatient Patient Location: [address] [place] [address] Study Date: 03/30/2018 02:23 PM Height: 64 in Weight: 190 lb BSA: 1.9 m2 Procedure: A complete two-dimensional transthoracic echocardiogram was performed (2D, M-mode, spectral and color flow Doppler). The study was technically adequate with some images being suboptimal in quality. Reason For Study: high blood pressure Ordering Physician: SHAQ PICKARD Performed By: Vy Severino Interpretation Summary The left ventricular ejection fraction is within normal limits. There is mild to moderate concentric left ventricular hypertrophy. The left ventricle is grossly normal size. Doppler measurements suggest pseudonormalized left ventricular relaxation, which is associated with grade II/IV or mild to moderate diastolic dysfunction Wall motion cannot be accurately commented on, but no definite regional wall motion abnormalities noted. The right ventricular systolic function is normal. The left atrial size is normal. The right atrium is normal in size There is a trace amount of mitral regurgitation There is no mitral valve stenosis. There is a trace to mild amount of aortic regurgitation There is no aortic valve stenosis There is a trace or physiologic amount of tricuspid regurgitation Tricuspid regurgitation jet envelope not well defined to measure RV systolic pressure accurately. The aortic root is not well visualized but is probably normal size. The inferior vena cava appeared normal and decreased > 50% with respiration (RAP 5-10 mmHg) There is no pericardial effusion. MMode/2D Measurements & Calculations RVDd: 2.7 cm LVIDd: 3.8 cm FS: 36.9 % Ao root diam: 2.7 cm IVSd: 1.1 cm LVIDs: 2.4 cm EDV(Teich): 60.6 ml Ao root area: 5.6 cm2 LVPWd: 1.1 cm ESV(Teich): 19.6 ml LA dimension: 3.4 cm EF(Teich): 67.6 % Doppler Measurements & Calculations MV E max ramiro: MV P1/2t max ramiro: Ao V2 max: AI max ramiro: 64.1 cm/sec 63.7 cm/sec 175.0 cm/sec 342.7 cm/sec MV A max ramiro: MV P1/2t: 43.2 msec Ao max PG: AI max P.1 cm/sec MVA(P1/2t): 5.1 cm2 12.2 mmHg 47.0 mmHg MV E/A: 0.77 MV dec slope: AI dec slope: 137.7 cm/sec2 431.9 cm/sec2 AI P1/2t: MV dec time: 728.8 msec 0.14 sec LV V1 max PG: PA V2 max: AV P1/2t-pr_phl: MV P1/2t-pr_phl: 6.8 mmHg 129.4 cm/sec 728.8 msec 43.2 msec LV V1 max: PA max P.7 mmHg 130.3 cm/sec Left Ventricle The left ventricle is grossly normal size. There is mild to moderate concentric left ventricular hypertrophy. The left ventricular ejection fraction is within normal limits. Doppler measurements suggest pseudonormalized left ventricular relaxation, which is associated with grade II/IV or mild to moderate diastolic dysfunction. Wall motion cannot be accurately commented on, but no definite regional wall motion abnormalities noted. Right Ventricle The right ventricle is grossly normal size. There is normal right ventricular wall thickness. The right ventricular systolic function is normal. Atria The right atrium is normal in size. The left atrial size is normal. Interarterial septum not well visualized and not well dopplered. Cannot comment on ASD/PFO presence. Mitral Valve The mitral valve is grossly normal. There is no mitral valve stenosis. There is a trace amount of mitral regurgitation. Aortic Valve The aortic valve is grossly normal. There is no aortic valve stenosis. There is a trace to mild amount of aortic regurgitation. Tricuspid Valve The tricuspid valve is not well visualized secondary to technical limitations. There is no tricuspid stenosis. There is a trace or physiologic amount of tricuspid regurgitation. Tricuspid regurgitation jet envelope not well defined to measure RV systolic pressure accurately. Pulmonic Valve The pulmonic valve is not well visualized. Great Vessels The aortic root is not well visualized but is probably normal size. The inferior vena cava appeared normal and decreased > 50% with respiration (RAP 5-10 mmHg). Effusions There is no pericardial effusion. : SHAQ PICKARD > Noble Haines
[2018-03-30 17:59] VITALS: BP 155/62
== END 2018-03-30 18:51 | disposition home or self-care (01) ==
LOC: ER 14:23 → EH 17:54 → 5 19:06
PROVIDERS: ADMIT Internal Medicine; ATTEND Internal Medicine
DX: R07.89 Other chest pain (principal); I10 Essential (primary) hypertension; I65.23 Occlusion and stenosis of bilateral carotid arteries; I25.10 Atherosclerotic heart disease of native coronary artery without angina pectoris; K22.10 Ulcer of esophagus without bleeding; R06.02 Shortness of breath; F17.210 Nicotine dependence, cigarettes, uncomplicated; R51 Headache; I25.2 Old myocardial infarction; Z79.82 Long term (current) use of aspirin; Z79.02 Long term (current) use of antithrombotics/antiplatelets; Z95.5 Presence of coronary angioplasty implant and graft; Z98.890 Other specified postprocedural states; Z82.49 Family history of ischemic heart disease and other diseases of the circulatory system
CPT/HCPCS: 93005 ×2; 99285; 36415 ×2; 82553; 82550; 85025; 80053; 84484 ×2; 93306; 93017; 71046; 78452; 70450; 93010 ×2; G0378 ×3; A9500; J2785; J1644; J3490 ×3; J0280; Q9969

== ENCOUNTER → 2018-07-09 | Outpatient (CLI) | payer OTHER ==
[2018-07-09 10:59] LABS: ANION GAP 11 (5-19); BLOOD UREA NITROGEN 25 mg/dL (7-20); CALCIUM 9.1 mg/dL (8.4-10.2); CARBON DIOXIDE 22 mmol/L (22-30); CHLORIDE 106 mmol/L (98-107); GLUCOSE 128 mg/dL (75-110); POTASSIUM 4.6 mmol/L (3.6-5.0); SODIUM 138.8 mmol/L (137-145)
== END ==
LOC: LAB 10:01
PROVIDERS: ATTEND Internal Medicine Cardiovascular Disease
DX: I10 Essential (primary) hypertension (principal)
CPT/HCPCS: 36415; 80048